=== PATIENT | male | born 1955 | race Hispanic/Latino ===

== ENCOUNTER → 2016-09-06 | Day surgery (SDC) | payer MEDICARE, MEDICAID ==
[~2016-09-06] VITALS: Ht 170.2 cm; Wt 80.3 kg
[~2016-09-06] MED LIST: ACETAMINOPHEN 325 MG TAB PO PRN; ACETYLCHOLINE OPHTH SOLN 1% 2ML As Ordered ONE; ACETYLCHOLINE OPHTH SOLN 1% 2ML XX ONE; ASPI1TAB PO; AcetaZOLAMIDE 500 MG ER CAP PO ONE; BALANCED SALT IRRIGATION SOL 500ML GLASS BOTTLE (FOR OR EYE COMPOUND) IR ONE; BSS with VANC/TOB/EPI for EYE CASES IR ONE; CEFUROXIME 1MG/0.1ML INTRACAMERAL INJ As Ordered ONE; CEFUROXIME 1MG/0.1ML INTRACAMERAL INJ ICAM ONE; CYCLOPENTOLATE 2% OPHTH SOLN As Ordered ONE; CYCLOPENTOLATE 2% OPHTH SOLN XX ONE; HEALON DUET (HEALON 10MG/ML 0.55ML & HEALON ENDOCOAT 30MG/ML 0.85ML) As Ordered ONE; HEALON DUET (HEALON 10MG/ML 0.55ML & HEALON ENDOCOAT 30MG/ML 0.85ML) XX ONE; KETOROLAC 0.5% OPHTH SOLN OS ONE; LIDOCAINE 1% SDV 5 ML VIAL As Ordered ONE; LIDOCAINE 1% SDV 5 ML VIAL XX ONE; LIDOCAINE 4% INJ 5 ML AMP OU ONE; METF1000 PO; MIDAZOLAM INJ 2 MG/2 ML VIAL (J2250) As Ordered ONE; OFLOXACIN 0.3 % (OCUFLOX) OPTH SOL 5ML As Ordered ONE; OFLOXACIN 0.3 % (OCUFLOX) OPTH SOL 5ML XX ONE; PHENYLEPHRINE 2.5% OPHTH SOL 2ML As Ordered ONE; PHENYLEPHRINE 2.5% OPHTH SOL 2ML XX ONE; POVIDONE-IODINE 5% OPHTH PREP SOL 30ML As Ordered ONE; PROPARACAINE 0.5% OPHTH SOL 15ML OS PRN; SIMV20TA2 PO; TRIMETHOBENZAMIDE 300 MG CAP PO PRN; TROPICAMIDE 1% OPHTH SOLN 2 ML As Ordered ONE; TROPICAMIDE 1% OPHTH SOLN 2 ML XX ONE; fentaNYL 100 MCG/2 ML INJECTION (J3010) As Ordered ONE
[2016-09-06 10:55] VITALS: BP 139/88
--- NOTE | 2016-09-06 13:55 | RO ---
DATE OF PROCEDURE: 09/06/2016 PREPROCEDURE DIAGNOSES: Age-related nuclear cataract and astigmatism, left eye. POSTPROCEDURE DIAGNOSES: Age-related nuclear cataract and astigmatism, left eye. PROCEDURE PERFORMED: Phacoemulsification and posterior chamber intraocular lens implantation, left eye. Lens used is a ZCT 525 25.0 diopters, 5.25 diopter cylinder placed at 81 degrees. SURGEON: Magnolia Anderson MD MOLDING ROOM SUPERVISOR: ANESTHESIA: Topical with sedation. DESCRIPTION OF PROCEDURE: The patient was prepped and draped in the usual fashion. A lid speculum was placed between the lids. The eye was fixated. A stab incision was made to the anterior chamber, and 1% nonpreserved Lidocaine was instilled. Then, viscoelastic was instilled. The eye was refixated. A 2.75 mm sapphire keratome was used to make a clear corneal temporal limbal incision. Capsulorrhexis was begun with a 30-gauge bent needle and then carried out in a circular fashion with capsulorrhexis forceps. The lens was hydrodissected, and then the phacoemulsification unit was used to make a groove in the nucleus and two meridians. The nucleus was then cracked into four quadrants. Each quadrant was removed with the phacoemulsification unit. Any remaining cortex was removed with the I and A unit. Capsular bag was refilled with viscoelastic. A posterior chamber intraocular lens was placed in the capsular bag without difficulty. Any remaining viscoelastic was removed with the I and A unit. The wound was hydrated, and Miochol and cefuroxime were instilled into the anterior chamber.
== END | disposition home or self-care (01) ==
LOC: M SDC 07:05
PROVIDERS: ATTEND Ophthalmology
DX: H25.12 Age-related nuclear cataract, left eye (principal); H52.202 Unspecified astigmatism, left eye; E11.9 Type 2 diabetes mellitus without complications; I10 Essential (primary) hypertension; Z79.82 Long term (current) use of aspirin; Z79.899 Other long term (current) drug therapy; Z87.891 Personal history of nicotine dependence
CPT/HCPCS: 66984; J2250; J3010; V2787

== ENCOUNTER 2016-09-25 14:07 | Emergency (ER) | payer MEDICARE ==
[~2016-09-25 14:07] MED LIST changes: -ACETAMINOPHEN 325 MG TAB PO PRN; -ACETYLCHOLINE OPHTH SOLN 1% 2ML As Ordered ONE; -ACETYLCHOLINE OPHTH SOLN 1% 2ML XX ONE; -AcetaZOLAMIDE 500 MG ER CAP PO ONE; -BALANCED SALT IRRIGATION SOL 500ML GLASS BOTTLE (FOR OR EYE COMPOUND) IR ONE; -BSS with VANC/TOB/EPI for EYE CASES IR ONE; -CEFUROXIME 1MG/0.1ML INTRACAMERAL INJ As Ordered ONE; -CEFUROXIME 1MG/0.1ML INTRACAMERAL INJ ICAM ONE; -CYCLOPENTOLATE 2% OPHTH SOLN As Ordered ONE; -CYCLOPENTOLATE 2% OPHTH SOLN XX ONE; -HEALON DUET (HEALON 10MG/ML 0.55ML & HEALON ENDOCOAT 30MG/ML 0.85ML) As Ordered ONE; -HEALON DUET (HEALON 10MG/ML 0.55ML & HEALON ENDOCOAT 30MG/ML 0.85ML) XX ONE; -KETOROLAC 0.5% OPHTH SOLN OS ONE; -LIDOCAINE 1% SDV 5 ML VIAL As Ordered ONE; -LIDOCAINE 1% SDV 5 ML VIAL XX ONE; -LIDOCAINE 4% INJ 5 ML AMP OU ONE; -MIDAZOLAM INJ 2 MG/2 ML VIAL (J2250) As Ordered ONE; -OFLOXACIN 0.3 % (OCUFLOX) OPTH SOL 5ML As Ordered ONE; -OFLOXACIN 0.3 % (OCUFLOX) OPTH SOL 5ML XX ONE; -PHENYLEPHRINE 2.5% OPHTH SOL 2ML As Ordered ONE; -PHENYLEPHRINE 2.5% OPHTH SOL 2ML XX ONE; -POVIDONE-IODINE 5% OPHTH PREP SOL 30ML As Ordered ONE; -PROPARACAINE 0.5% OPHTH SOL 15ML OS PRN; -TRIMETHOBENZAMIDE 300 MG CAP PO PRN; -TROPICAMIDE 1% OPHTH SOLN 2 ML As Ordered ONE; -TROPICAMIDE 1% OPHTH SOLN 2 ML XX ONE; -fentaNYL 100 MCG/2 ML INJECTION (J3010) As Ordered ONE
--- NOTE | 2016-09-25 15:09 | EDDOCDS ---
Physician Documentation [facility] Name: Martin Hein Age: 61 yrs Sex: Male : 1955 Arrival Date: 09/25/2016 Time: 14:07 Bed Triage 2 Private MD: Geovani Bolivar Disposition: 09/25/16 15:04 Discharged to Home/Self Care. Impression: Urticaria, unspecified. - Condition is Stable. - Discharge Instructions: Hives. - Prescriptions for Prednisone 20 mg Oral Tablet - take 1 tablet by ORAL route once daily for 5 days; 5 tablet. Betamethasone Dipropionate 0.05 % Topical Cream - apply 1 application by TOPICAL route once daily apply to spots on arm; 1 tube. - Medication Reconciliation form. - Follow up: Geovani Bolivar; When: Call to arrange an appointment; Reason: Wound/Symptom Recheck, Recheck today's complaints, Worsening of conditions, Continuance of care. Follow up: Pily Sanchez RNNP; When: Call to arrange an appointment; Reason: Wound/Symptom Recheck, Recheck today's complaints, Worsening of conditions, Continuance of care. - Problem is an ongoing problem. - Symptoms are unchanged. Historical: - Allergies: Morphine (Rash); - Home Meds: 1. metformin 850 mg Oral tab 1 tab 2 times per day 2. simvastatin 20 mg Oral tab once daily - PMHx: Diabetes - NIDDM: controlled; Hypercholesterolemia; - PSHx: upper back surgery; - Social history: Smoking status: Patient states former smoker of tobacco. No barriers to communication noted, The patient speaks fluent Turkish, Speaks appropriately for age. - Family history: Not pertinent. - : The pt / caregiver states he / she is not on anticoagulants. Home medication list is obtained from pill bottles. - Exposure Risk Screening:: None identified. Vital Signs: 09/25 14:08 BP 158 / 96; Pulse 89; Resp 18; Temp 97.4(T); Pulse Ox 96% on R/A; Weight 75.75 kg / dem1 167 lbs; Height 5 ft. 7 in. (170.18 cm); Pain 10/10; 14:08 Body Mass Index 26.16 (75.75 kg, 170.18 cm) dem1 Signatures: Mel Chase RN RN js13 Dayanna Buchanan RN RN ead Filippo Osuna, PA-C PA-C cc10 MTDD
--- NOTE | 2016-09-25 15:09 | EDDOCDS ---
Nurse's Notes [facility] Name: Martin Hein Age: 61 yrs Sex: Male : 1955 Arrival Date: 09/25/2016 Time: 14:07 Bed Triage 2 Private MD: Geovani Bolivar Diagnosis: Urticaria, unspecified Presentation: 09/25 14:09 Presenting complaint: Patient states: pt c/o red rash to right arm, onset last night. ead Adult Sepsis Screening: The patient does not have new or worsening altered mentation. Patient's respiratory rate is less than 22. Systolic blood pressure is greater than 100. Patient has a qSOFA score of 0- Negative Sepsis Screen. Suicide/Homicide risk assessment- the patient denies having any suicidal and/or homicidal ideations and does not present with any other emotional, behavioral or mental health complaints. Status: Patient is not a director of special services or dependent. Transition of care: patient was not received from another setting of care. 14:09 Acuity: CHAGO Level 4 ead 14:09 Method Of Arrival: Walkin/Carried/Asstd ead Triage Assessment: 14:11 General: Appears in no apparent distress, comfortable, well nourished, well groomed, ead Behavior is appropriate for age, cooperative. Pain: Denies pain. HIV screening NA for this visit Offered previously. Respiratory: Airway is patent Respiratory effort is even, unlabored. Derm: red, circular rash to right forearm. Historical: - Allergies: Morphine (Rash); - Home Meds: 1. metformin 850 mg Oral tab 1 tab 2 times per day 2. simvastatin 20 mg Oral tab once daily - PMHx: Diabetes - NIDDM: controlled; Hypercholesterolemia; - PSHx: upper back surgery; - Social history: Smoking status: Patient states former smoker of tobacco. No barriers to communication noted, The patient speaks fluent Spanish, Speaks appropriately for age. - Family history: Not pertinent. - : The pt / caregiver states he / she is not on anticoagulants. Home medication list is obtained from pill bottles. - Exposure Risk Screening:: None identified. Screenin:34 Screening information is obtained from the patient. Fall risk: No risks identified. js13 Assistance ADL's: requires no assistance with activities of daily living. Abuse/DV Screen: The patient / caregiver reports he/she is: not in a situation that causes fear, pain or injury. Nutritional screening: No deficits noted. Advance Directives: There is no active DNR order. home support is adequate. Vital Signs: 14:08 BP 158 / 96; Pulse 89; Resp 18; Temp 97.4(T); Pulse Ox 96% on R/A; Weight 75.75 kg; dem1 Height 5 ft. 7 in. (170.18 cm); Pain 10/10; 14:08 Body Mass Index 26.16 (75.75 kg, 170.18 cm) [facility] Vitals: 14:08 Log In Time: September 25, 2016 at 14:05. [facility] ED Course: 14:08 Patient visited by Gato Loera. dem1 14:08 Geovani Bolivar is Private Physician. dem1 14:08 Patient moved to Waiting dem1 14:09 Patient moved to Pre RCE dem1 14:10 Triage Initiated ead 14:28 Patient moved to Triage 2 ar3 14:34 The patient / caregiver is instructed regarding the plan of care and ED course. js13 14:34 No IV's were initiated during this patient's visit. No procedures done that require js13 assistance. 14:55 Filippo Osuna PA-C is [facility]. cc10 14:55 Deepa Camara MD is Attending Physician. cc10 14:56 Patient visited by Filippo Osuna PA-C. cc10 14:56 Patient visited by Filippo Osuna PA-C. cc10 15:03 Geovani Bolivar is Referral Physician. cc10 15:03 Pily Sanchez RNNP is Referral Physician. cc10 Order Results: There are currently no results for this order. Outcome: 15:04 Discharge ordered by Provider. cc10 15:08 Discharge Assessment: Patient awake, alert and oriented x 3. No cognitive and/or js13 functional deficits noted. Patient verbalized understanding of disposition instructions. patient administered narcotics - no. The following High Risk Discharge criteria are identified: None. Discharged to home ambulatory. Condition: stable. Discharge instructions given to patient, Instructed on discharge instructions, follow up and referral plans. medication usage, Demonstrated understanding of instructions, medications, Pt was receptive of discharge instructions/ teaching. Prescriptions given X 2. No special radiology studies were completed. Property :Personal belongings accompany Pt. 15:08 Patient left the ED. js13 Signatures: Mallory Holman, LAUNDRY EQUIPMENT OPERATOR LAUNDRY EQUIPMENT OPERATOR ar3 Gato Loera dem1 Mel Chase,RN RN js13 Dayanna BuchananRN RN eaFilippo Zee, PA-C PA-C cc10 MTDD
--- NOTE | 2016-09-27 16:09 | EDDOCDS ---
Physician Documentation [facility] Name: Martin Hein Age: 61 yrs Sex: Male : 1955 Arrival Date: 09/25/2016 Time: 14:07 Bed Triage 2 Private MD: Geovani Bolivar Disposition: 09/25/16 15:04 Discharged to Home/Self Care. Impression: Urticaria, unspecified. - Condition is Stable. - Discharge Instructions: Hives. - Prescriptions for Prednisone 20 mg Oral Tablet - take 1 tablet by ORAL route once daily for 5 days; 5 tablet. Betamethasone Dipropionate 0.05 % Topical Cream - apply 1 application by TOPICAL route once daily apply to spots on arm; 1 tube. - Medication Reconciliation form. - Follow up: Geovani Bolivar; When: Call to arrange an appointment; Reason: Wound/Symptom Recheck, Recheck today's complaints, Worsening of conditions, Continuance of care. Follow up: Pily Sanchez RNNP; When: Call to arrange an appointment; Reason: Wound/Symptom Recheck, Recheck today's complaints, Worsening of conditions, Continuance of care. - Problem is an ongoing problem. - Symptoms are unchanged. Historical: - Allergies: Morphine (Rash); - Home Meds: 1. metformin 850 mg Oral tab 1 tab 2 times per day 2. simvastatin 20 mg Oral tab once daily - PMHx: Diabetes - NIDDM: controlled; Hypercholesterolemia; - PSHx: upper back surgery; - Social history: Smoking status: Patient states former smoker of tobacco. No barriers to communication noted, The patient speaks fluent Latvian, Speaks appropriately for age. - Family history: Not pertinent. - : The pt / caregiver states he / she is not on anticoagulants. Home medication list is obtained from pill bottles. - Exposure Risk Screening:: None identified. Vital Signs: 09/25 14:08 BP 158 / 96; Pulse 89; Resp 18; Temp 97.4(T); Pulse Ox 96% on R/A; Weight 75.75 kg / dem1 167 lbs; Height 5 ft. 7 in. (170.18 cm); Pain 10/10; 14:08 Body Mass Index 26.16 (75.75 kg, 170.18 cm) dem1 MDM: 09/26 12:45 T-Sheet-- Draft Copy was scanned into [email or web address] and attached to record. gb Signatures: Sarah Weber, Reg Reg Mel Shafer,RN RN js13 Dayanna BuchananRN RN Filippo Benedict, KAILYN PAFabby cc10 The chart was reviewed and I authenticate all verbal orders and agree with the evaluation and treatment provided.Attachments: 12:45 T-Sheet-- Draft Copy gb Chart Complete MTDD
--- NOTE | 2016-09-27 16:09 | EDDOCDS ---
Physician Documentation [facility] Name: Martin Hein Age: 61 yrs Sex: Male : 1955 Arrival Date: 09/25/2016 Time: 14:07 Bed Triage 2 Private MD: Geovani Bolivar Disposition: 09/25/16 15:04 Discharged to Home/Self Care. Impression: Urticaria, unspecified. - Condition is Stable. - Discharge Instructions: Hives. - Prescriptions for Prednisone 20 mg Oral Tablet - take 1 tablet by ORAL route once daily for 5 days; 5 tablet. Betamethasone Dipropionate 0.05 % Topical Cream - apply 1 application by TOPICAL route once daily apply to spots on arm; 1 tube. - Medication Reconciliation form. - Follow up: Geovani Bolivar; When: Call to arrange an appointment; Reason: Wound/Symptom Recheck, Recheck today's complaints, Worsening of conditions, Continuance of care. Follow up: Pily Sanchez RNNP; When: Call to arrange an appointment; Reason: Wound/Symptom Recheck, Recheck today's complaints, Worsening of conditions, Continuance of care. - Problem is an ongoing problem. - Symptoms are unchanged. Historical: - Allergies: Morphine (Rash); - Home Meds: 1. metformin 850 mg Oral tab 1 tab 2 times per day 2. simvastatin 20 mg Oral tab once daily - PMHx: Diabetes - NIDDM: controlled; Hypercholesterolemia; - PSHx: upper back surgery; - Social history: Smoking status: Patient states former smoker of tobacco. No barriers to communication noted, The patient speaks fluent Kiswahili, Speaks appropriately for age. - Family history: Not pertinent. - : The pt / caregiver states he / she is not on anticoagulants. Home medication list is obtained from pill bottles. - Exposure Risk Screening:: None identified. Vital Signs: 09/25 14:08 BP 158 / 96; Pulse 89; Resp 18; Temp 97.4(T); Pulse Ox 96% on R/A; Weight 75.75 kg / dem1 167 lbs; Height 5 ft. 7 in. (170.18 cm); Pain 10/10; 14:08 Body Mass Index 26.16 (75.75 kg, 170.18 cm) dem1 MDM: 09/26 12:45 T-Sheet-- Draft Copy was scanned into [employer] and attached to record. gb Signatures: Sarah Weber, Reg Reg Mel hSafer,RN RN js13 Dayanna BuchananRN RN Filippo Benedict, KAILYN PAFabby cc10 The chart was reviewed and I authenticate all verbal orders and agree with the evaluation and treatment provided.Attachments: 12:45 T-Sheet-- Draft Copy gb Chart Complete MTDD
--- NOTE | 2016-09-27 16:10 | EDDOCDS ---
Nurse's Notes [facility] Name: Martin Hein Age: 61 yrs Sex: Male : 1955 Arrival Date: 09/25/2016 Time: 14:07 Bed Triage 2 Private MD: Geovani Bolivar Diagnosis: Urticaria, unspecified Presentation: 09/25 14:09 Presenting complaint: Patient states: pt c/o red rash to right arm, onset last night. ead Adult Sepsis Screening: The patient does not have new or worsening altered mentation. Patient's respiratory rate is less than 22. Systolic blood pressure is greater than 100. Patient has a qSOFA score of 0- Negative Sepsis Screen. Suicide/Homicide risk assessment- the patient denies having any suicidal and/or homicidal ideations and does not present with any other emotional, behavioral or mental health complaints. Status: Patient is not a surgical services asst or dependent. Transition of care: patient was not received from another setting of care. 14:09 Acuity: CHAGO Level 4 ead 14:09 Method Of Arrival: Walkin/Carried/Asstd ead Triage Assessment: 14:11 General: Appears in no apparent distress, comfortable, well nourished, well groomed, ead Behavior is appropriate for age, cooperative. Pain: Denies pain. HIV screening NA for this visit Offered previously. Respiratory: Airway is patent Respiratory effort is even, unlabored. Derm: red, circular rash to right forearm. Historical: - Allergies: Morphine (Rash); - Home Meds: 1. metformin 850 mg Oral tab 1 tab 2 times per day 2. simvastatin 20 mg Oral tab once daily - PMHx: Diabetes - NIDDM: controlled; Hypercholesterolemia; - PSHx: upper back surgery; - Social history: Smoking status: Patient states former smoker of tobacco. No barriers to communication noted, The patient speaks fluent Spanish, Speaks appropriately for age. - Family history: Not pertinent. - : The pt / caregiver states he / she is not on anticoagulants. Home medication list is obtained from pill bottles. - Exposure Risk Screening:: None identified. Screenin:34 Screening information is obtained from the patient. Fall risk: No risks identified. js13 Assistance ADL's: requires no assistance with activities of daily living. Abuse/DV Screen: The patient / caregiver reports he/she is: not in a situation that causes fear, pain or injury. Nutritional screening: No deficits noted. Advance Directives: There is no active DNR order. home support is adequate. Vital Signs: 14:08 BP 158 / 96; Pulse 89; Resp 18; Temp 97.4(T); Pulse Ox 96% on R/A; Weight 75.75 kg; dem1 Height 5 ft. 7 in. (170.18 cm); Pain 10/10; 14:08 Body Mass Index 26.16 (75.75 kg, 170.18 cm) [facility] Vitals: 14:08 Log In Time: September 25, 2016 at 14:05. [facility] ED Course: 14:08 Patient visited by Gato Loera. dem1 14:08 Geovani Bolivar is Private Physician. dem1 14:08 Patient moved to Waiting dem1 14:09 Patient moved to Pre RCE dem1 14:10 Triage Initiated ead 14:28 Patient moved to Triage 2 ar3 14:34 The patient / caregiver is instructed regarding the plan of care and ED course. js13 14:34 No IV's were initiated during this patient's visit. No procedures done that require js13 assistance. 14:55 Filippo Osuna PA-C [facility]. cc10 14:55 Deepa Camara MD is Attending Physician. cc10 14:56 Patient visited by Filippo Osuna PA-C. cc10 14:56 Patient visited by Filippo Osuna PA-C. cc10 15:03 Geovani Bolivar is Referral Physician. cc10 15:03 Pily Sanchez RNNP is Referral Physician. [facility] 09/26 12:45 T-Sheet-- Draft Copy was scanned into [employer] and attached to record. gb Order Results: There are currently no results for this order. Outcome: 09/25 15:04 Discharge ordered by Provider. cc10 15:08 Discharge Assessment: Patient awake, alert and oriented x 3. No cognitive and/or js13 functional deficits noted. Patient verbalized understanding of disposition instructions. patient administered narcotics - no. The following High Risk Discharge criteria are identified: None. Discharged to home ambulatory. Condition: stable. Discharge instructions given to patient, Instructed on discharge instructions, follow up and referral plans. medication usage, Demonstrated understanding of instructions, medications, Pt was receptive of discharge instructions/ teaching. Prescriptions given X 2. No special radiology studies were completed. Property :Personal belongings accompany Pt. 15:08 Patient left the ED. js13 Signatures: Sarah Weber, Dorian Reg gb Mallory Holman, LOG HOOKER LOG HOOKER ar3 Evaristo, Gato dem1 Mel Chase,RN RN js13 Dayanna BuchananRN RN Filippo Benedict, PA-C PA-C cc10 Chart Complete MTDD
== END 2016-09-25 15:08 | disposition home or self-care (01) ==
LOC: M ED 14:07
DX: L50.0 Allergic urticaria (principal); E11.9 Type 2 diabetes mellitus without complications; E78.00 Pure hypercholesterolemia, unspecified; Z79.899 Other long term (current) drug therapy; Z79.84 Long term (current) use of oral hypoglycemic drugs; Z88.5 Allergy status to narcotic agent; Z87.891 Personal history of nicotine dependence

== ENCOUNTER → 2016-10-16 | Outpatient (REF) | payer MEDICARE, MEDICAID ==
[2016-10-16 11:57] LABS: MEAN CORPUSCULAR HEMOGLOBIN 32.9 pg (27.0-33.0); MEAN CORPUSCULAR HGB CONC 35.6 g/dl (32.0-36.5); MEAN CORPUSCULAR VOLUME 92.5 fl (80.0-96.0); RED CELL DISTRIBUTION WIDTH 13.2 % (11.5-14.5); WHITE BLOOD COUNT 6.5 K/mm3 (4.0-10.0)
[2016-10-16 12:26] LABS: ALBUMIN 4.2 GM/DL (3.2-5.2); ALKALINE PHOSPHATASE 75 U/L (45-117); ALT/SGPT 38 U/L (12-78); ANION GAP 9 MEQ/L (8-16); AST/SGOT 18 U/L (15-37); BILIRUBIN,TOTAL 0.3 MG/DL (0.2-1.0); BLOOD UREA NITROGEN 12 MG/DL (7-18); CALCIUM LEVEL 9.2 MG/DL (8.8-10.2); CARBON DIOXIDE LEVEL 29 MEQ/L (21-32); CHLORIDE LEVEL 104 MEQ/L (98-107); CHOLESTEROL LEVEL 152 MG/DL (<200); CREATININE FOR GFR 1.03 MG/DL (0.70-1.30); GLOMERULAR FILTRATION RATE > 60.0 (>49); GLUCOSE, FASTING 168 MG/DL (80-110); SODIUM LEVEL 142 MEQ/L (136-145); TOTAL PROTEIN 7.7 GM/DL (6.4-8.2); TRIGLYCERIDES LEVEL 226 MG/DL (<150)
[2016-10-16 12:29] LABS: POTASSIUM SERUM 5.2 MEQ/L (3.5-5.1)
== END ==
LOC: M SFHCPLAZ 10:04
PROVIDERS: ATTEND Nurse Practitioner Adult Health
DX: Z00.00 Encounter for general adult medical examination without abnormal findings (principal); E78.00 Pure hypercholesterolemia, unspecified; L30.9 Dermatitis, unspecified; E11.69 Type 2 diabetes mellitus with other specified complication; E55.9 Vitamin D deficiency, unspecified; F41.8 Other specified anxiety disorders; H91.92 Unspecified hearing loss, left ear; Z87.442 Personal history of urinary calculi
CPT/HCPCS: 36415; 80053; 80061; 82043; 83036; 84443; 85027; 93005; G0463

== ENCOUNTER → 2016-12-06 | Day surgery (SDC) | payer MEDICARE ==
[~2016-12-06] VITALS: Ht 167.6 cm; Wt 80.7 kg
[~2016-12-06] MED LIST changes: +D5W/0.2% SODIUM CHLORIDE 250 ML IV SCH; +LIDOCAINE 2% W/EPIN INJ 20ML **PRES FREE As Ordered ONE; +LIDOCAINE 4% INJ 5 ML AMP OU ONE; +MIDAZOLAM INJ 2 MG/2 ML VIAL (J2250) As Ordered ONE; +OFLOXACIN 0.3 % (OCUFLOX) OPTH SOL 5ML OS ONE; +POVIDONE-IODINE 5% OPHTH PREP SOL 30ML As Ordered ONE; +TOBRADEX OPHTH OINT 3.5 GM As Ordered ONE; +fentaNYL 100 MCG/2 ML INJECTION (J3010) As Ordered ONE
[2016-12-06 11:00] VITALS: BP 137/84
--- NOTE | 2016-12-06 11:09 | RO ---
DATE OF PROCEDURE: 12/06/2016 PREPROCEDURE DIAGNOSIS: Pterygium nasally, left eye. POSTPROCEDURE DIAGNOSIS: Pterygium nasally, left eye. PROCEDURE PERFORMED: Excision of pterygium with amniotic membrane graft. SURGEON: Magnolia Anderson MD EMERGENCY PHYSICIAN: ANESTHESIA: Local with sedation. DESCRIPTION OF PROCEDURE: The patient was prepped and draped in the usual fashion. Lid speculum was placed between the lids. The pterygium was grasped with the forceps, and 2% lidocaine with epinephrine was injected underneath the pterygium. The pterygium was excised from the overlying sclera, and then the head of the pterygium was removed from the cornea. The cornea was scraped clean of any tissue, and any bleeding was controlled with Wet-Field cautery. An amniotic membrane graft was taken and cut to size and tucked underneath the edges of the free conjunctiva. Tisseel adhesive was used to glue the graft to the conjunctiva. TobraDex ointment was applied. After this, the lid speculum was removed and a patch was placed. Patient tolerated the procedure well and went to recovery room in stable condition.
== END | disposition home or self-care (01) ==
LOC: M SDC 06:47
PROVIDERS: ATTEND Ophthalmology
DX: H11.002 Unspecified pterygium of left eye (principal); E11.9 Type 2 diabetes mellitus without complications; E78.5 Hyperlipidemia, unspecified; Z79.82 Long term (current) use of aspirin; Z79.899 Other long term (current) drug therapy
CPT/HCPCS: 65426; 88302; C1762; J2250; J3010

== ENCOUNTER → 2017-07-31 | Outpatient (REF) | payer MEDICARE, MEDICAID ==
[~2017-07-31] MED LIST changes: -D5W/0.2% SODIUM CHLORIDE 250 ML IV SCH; -LIDOCAINE 2% W/EPIN INJ 20ML **PRES FREE As Ordered ONE; -LIDOCAINE 4% INJ 5 ML AMP OU ONE; -METF1000 PO; +METF10004 PO; -MIDAZOLAM INJ 2 MG/2 ML VIAL (J2250) As Ordered ONE; -OFLOXACIN 0.3 % (OCUFLOX) OPTH SOL 5ML OS ONE; -POVIDONE-IODINE 5% OPHTH PREP SOL 30ML As Ordered ONE; -TOBRADEX OPHTH OINT 3.5 GM As Ordered ONE; -fentaNYL 100 MCG/2 ML INJECTION (J3010) As Ordered ONE
[2017-07-31 12:58] LABS: ALBUMIN 4.3 GM/DL (3.2-5.2); ALBUMIN/GLOBULIN RATIO 1.26 (1.00-1.93); ALKALINE PHOSPHATASE 66 U/L (45-117); ALT/SGPT 41 U/L (12-78); ANION GAP 9 MEQ/L (8-16); AST/SGOT 19 U/L (7-37); BILIRUBIN,TOTAL 0.5 MG/DL (0.2-1.0); BLOOD UREA NITROGEN 13 MG/DL (7-18); CARBON DIOXIDE LEVEL 28 MEQ/L (21-32); CHLORIDE LEVEL 102 MEQ/L (98-107); CHOLESTEROL LEVEL 122 MG/DL (<200); CREATININE FOR GFR 1.03 MG/DL (0.70-1.30); GLOMERULAR FILTRATION RATE > 60.0 (>49); GLUCOSE, FASTING 231 MG/DL (80-110); POTASSIUM SERUM 4.9 MEQ/L (3.5-5.1); SODIUM LEVEL 139 MEQ/L (136-145); TOTAL PROTEIN 7.7 GM/DL (6.4-8.2); TRIGLYCERIDES LEVEL 101 MG/DL (<150)
== END ==
LOC: M SFHCPLAZ 08:18
PROVIDERS: ATTEND Nurse Practitioner Adult Health
DX: E55.9 Vitamin D deficiency, unspecified (principal); E11.69 Type 2 diabetes mellitus with other specified complication; E78.2 Mixed hyperlipidemia

== ENCOUNTER → 2017-11-19 | Outpatient (CLI) | payer MEDICARE, MEDICAID ==
[2017-11-19 10:42] LABS: ESTIMATED AVERAGE GLUCOSE 146 MG/DL (60-110); HEMOGLOBIN A1c 6.7 %
[2017-11-19 10:52] LABS: ALBUMIN 4.2 GM/DL (3.2-5.2); ALKALINE PHOSPHATASE 64 U/L (45-117); ALT/SGPT 33 U/L (12-78); ANION GAP 2 MEQ/L (8-16); AST/SGOT 17 U/L (7-37); BILIRUBIN,TOTAL 0.6 MG/DL (0.2-1.0); BLOOD UREA NITROGEN 16 MG/DL (7-18); CALCIUM LEVEL 8.8 MG/DL (8.8-10.2); CARBON DIOXIDE LEVEL 32 MEQ/L (21-32); CHLORIDE LEVEL 108 MEQ/L (98-107); CHOLESTEROL LEVEL 122 MG/DL (<200); CHOLESTEROL RISK RATIO 2.652 (<5); CREATININE FOR GFR 1.07 MG/DL (0.70-1.30); GLOMERULAR FILTRATION RATE > 60.0 (>49); GLUCOSE, FASTING 132 MG/DL (70-100); HDL CHOLESTEROL 46 MG/DL (>40); NON-HDL-C 76 MG/DL; POTASSIUM SERUM 4.9 MEQ/L (3.5-5.1); SODIUM LEVEL 142 MEQ/L (136-145); TOTAL PROTEIN 7.7 GM/DL (6.4-8.2); TRIGLYCERIDES LEVEL 145 MG/DL (<150)
[2017-11-19 10:57] LABS: TOTAL 25(OH) VITAMIN D 44.1 NG/ML (30.0-100.0)
[2017-11-19 11:02] LABS: CREATININE, URINE 41.6 MG/DL; MALB URINE SIEMENS < 5.0 MG/L
== END ==
LOC: M LAB 09:44
DX: E11.69 Type 2 diabetes mellitus with other specified complication (principal); E78.2 Mixed hyperlipidemia; E55.9 Vitamin D deficiency, unspecified
CPT/HCPCS: 80053

== ENCOUNTER → 2017-12-08 | Outpatient (REF) | payer MEDICARE, MEDICAID ==
[2017-12-08 12:37] LABS: INFLUENZA A AMPLIFICATION NEGATIVE (NEGATIVE); INFLUENZA B AMPLIFICATION NEGATIVE (NEGATIVE)
== END ==
LOC: M LAB REF 11:53
DX: J11.1 Influenza due to unidentified influenza virus with other respiratory manifestations (principal)
CPT/HCPCS: 87502

== ENCOUNTER → 2018-01-28 | Outpatient (REF) | payer MEDICARE, MEDICAID ==
[2018-01-28 16:16] LABS: URIC ACID 4.6 MG/DL (3.5-7.2)
[2018-01-28 16:23] LABS: ESTIMATED AVERAGE GLUCOSE 148 MG/DL (60-110); HEMOGLOBIN A1c 6.8 %
== END ==
LOC: M SFHCPLAZ 13:51
DX: E11.69 Type 2 diabetes mellitus with other specified complication (principal); M79.674 Pain in right toe(s)
CPT/HCPCS: 84550

== ENCOUNTER 2018-03-06 11:38 | Emergency (ER) | payer MEDICARE, MEDICAID ==
[2018-03-06 12:22] LABS: BASO % 0.3 % (0.0-1.0); EOS # 0.1 10^3/uL (0.0-0.50); EOS % 1.4 % (0.0-3.0); HEMATOCRIT 42.5 % (42.0-52.0); HEMOGLOBIN 14.8 g/dl (13.5-17.5); IMMATURE GRANULOCYTE % 0.2 % (0-3.0); LYMPH # 1.9 10^3/uL (1.5-4.5); LYMPH % 33.3 % (24.0-44.0); MEAN CORPUSCULAR HEMOGLOBIN 31.8 pg (27.0-33.0); MEAN CORPUSCULAR HGB CONC 34.8 g/dl (32.0-36.5); MEAN CORPUSCULAR VOLUME 91.4 fl (80.0-96.0); MONO # 0.5 10^3/uL (0.0-0.8); MONO % 8.2 % (0.0-5.0); NEUTROPHILS # 3.3 10^3/uL (1.8-7.7); NEUTROPHILS % 56.6 % (36.0-66.0); PLATELET COUNT, AUTOMATED 174 10^3/uL (150-450); RED BLOOD COUNT 4.65 10^6/uL (4.30-6.10); RED CELL DISTRIBUTION WIDTH 13.1 % (11.5-14.5); WHITE BLOOD COUNT 5.8 10^3/uL (4.0-10.0)
[2018-03-06 12:39] LABS: INR 0.91; PROTHROMBIN TIME 12.4 SECONDS (12.1-14.4)
[2018-03-06] MEDS: GI COCKTAIL 50ML BTL(HYOSCYAMINE/MAALOX/LIDOCAINE VISCOUS)(1:3:1) PO (12:42)
[2018-03-06] MEDS: ASPIRIN 81 MG CHEW TABLET PO (12:42)
[2018-03-06 12:43] LABS: ANION GAP 7 MEQ/L (8-16); BLOOD UREA NITROGEN 20 MG/DL (7-18); CARBON DIOXIDE LEVEL 28 MEQ/L (21-32); CHLORIDE LEVEL 107 MEQ/L (98-107); CPK CREATINE PHOSPHOKINASE 66 U/L (39-308); CREATININE FOR GFR 0.97 MG/DL (0.70-1.30); GLOMERULAR FILTRATION RATE > 60.0 (>49); GLUCOSE, FASTING 102 MG/DL (70-100); POTASSIUM SERUM 4.3 MEQ/L (3.5-5.1); SODIUM LEVEL 142 MEQ/L (136-145); TROPONIN I < 0.02 NG/ML (< 0.10)
[2018-03-06 12:44] LABS: CK-MB VALUE MASS 1.1 NG/ML (<3.6); MB/CK RELATIVE INDEX 1.66 (< OR =4)
[2018-03-06 16:44] LABS: CK-MB VALUE MASS < 1.0 NG/ML (<3.6); CPK CREATINE PHOSPHOKINASE 47 U/L (39-308); MB/CK RELATIVE INDEX 2.12 (< OR =4); TROPONIN I < 0.02 NG/ML (< 0.10)
== END 2018-03-06 17:25 | disposition home or self-care (01) ==
LOC: M ED 11:38
DX: M54.9 Dorsalgia, unspecified (principal); G89.29 Other chronic pain; R07.89 Other chest pain; E11.9 Type 2 diabetes mellitus without complications; K21.9 Gastro-esophageal reflux disease without esophagitis; E78.5 Hyperlipidemia, unspecified; Z87.891 Personal history of nicotine dependence; Z79.899 Other long term (current) drug therapy; Z79.82 Long term (current) use of aspirin; Z79.84 Long term (current) use of oral hypoglycemic drugs
CPT/HCPCS: 71045

== ENCOUNTER → 2018-03-27 | Outpatient (CLI) | payer MEDICARE, MEDICAID | LOC: M RAD 07:44 | DX: M51.26 Other intervertebral disc displacement, lumbar region (principal) | CPT/HCPCS: 72148 ==

== ENCOUNTER → 2018-04-24 | Outpatient (CLI) | payer MEDICARE, MEDICAID ==
[2018-04-24 09:14] LABS: ANION GAP 7 MEQ/L (8-16); BLOOD UREA NITROGEN 12 MG/DL (7-18); CALCIUM LEVEL 9.4 MG/DL (8.8-10.2); CARBON DIOXIDE LEVEL 31 MEQ/L (21-32); CHLORIDE LEVEL 103 MEQ/L (98-107); CREATININE FOR GFR 1.27 MG/DL (0.70-1.30); GLOMERULAR FILTRATION RATE > 60.0 (>49); GLUCOSE, FASTING 210 MG/DL (70-100); POTASSIUM SERUM 4.6 MEQ/L (3.5-5.1); SODIUM LEVEL 141 MEQ/L (136-145)
== END ==
LOC: M LAB 08:13
DX: Z01.812 Encounter for preprocedural laboratory examination (principal)
CPT/HCPCS: 93005

== ENCOUNTER → 2018-06-22 | Outpatient (CLI) | payer MEDICARE, MEDICAID ==
[2018-06-22 10:02] LABS: BASO % 0.6 % (0.0-1.0); EOS # 0.1 10^3/uL (0.0-0.50); EOS % 1.5 % (0.0-3.0); HEMATOCRIT 40.7 % (42.0-52.0); HEMOGLOBIN 14.2 g/dl (13.5-17.5); IMMATURE GRANULOCYTE % 0.4 % (0-3.0); LYMPH # 1.8 10^3/uL (1.5-4.5); LYMPH % 33.1 % (24.0-44.0); MEAN CORPUSCULAR HEMOGLOBIN 32.1 pg (27.0-33.0); MEAN CORPUSCULAR HGB CONC 34.9 g/dl (32.0-36.5); MEAN CORPUSCULAR VOLUME 92.1 fl (80.0-96.0); MONO # 0.4 10^3/uL (0.0-0.8); MONO % 7.5 % (0.0-5.0); NEUTROPHILS # 3.1 10^3/uL (1.8-7.7); NEUTROPHILS % 56.9 % (36.0-66.0); PLATELET COUNT, AUTOMATED 149 10^3/uL (150-450); RED BLOOD COUNT 4.42 10^6/uL (4.30-6.10); RED CELL DISTRIBUTION WIDTH 13.6 % (11.5-14.5); WHITE BLOOD COUNT 5.4 10^3/uL (4.0-10.0)
[2018-06-22 10:19] LABS: ESTIMATED AVERAGE GLUCOSE 151 MG/DL (60-110); HEMOGLOBIN A1c 6.9 %
[2018-06-22 10:28] LABS: CREATININE, URINE 21.3 MG/DL; MALB URINE SIEMENS < 5.0 MG/L
[2018-06-22 10:29] LABS: MAU/CREAT RATIO 23.5 MCG/MG (0.0-30.0)
[2018-06-22 10:30] LABS: ALBUMIN 4.2 GM/DL (3.2-5.2); ALBUMIN/GLOBULIN RATIO 1.35 (1.00-1.93); ALKALINE PHOSPHATASE 56 U/L (45-117); ALT/SGPT 36 U/L (12-78); ANION GAP 5 MEQ/L (8-16); AST/SGOT 20 U/L (7-37); BILIRUBIN,TOTAL 0.5 MG/DL (0.2-1.0); BLOOD UREA NITROGEN 11 MG/DL (7-18); CARBON DIOXIDE LEVEL 31 MEQ/L (21-32); CHLORIDE LEVEL 104 MEQ/L (98-107); CHOLESTEROL LEVEL 110 MG/DL (<200); CHOLESTEROL RISK RATIO 2.682 (<5); CPK CREATINE PHOSPHOKINASE 82 U/L (39-308); CREATININE FOR GFR 0.93 MG/DL (0.70-1.30); GLOMERULAR FILTRATION RATE > 60.0 (>49); GLUCOSE, FASTING 115 MG/DL (70-100); HDL CHOLESTEROL 41 MG/DL (>40); LDL CHOLESTEROL 43 MG/DL (<100); NON-HDL-C 69 MG/DL; POTASSIUM SERUM 4.6 MEQ/L (3.5-5.1); SODIUM LEVEL 140 MEQ/L (136-145); TOTAL PROTEIN 7.3 GM/DL (6.4-8.2); TRIGLYCERIDES LEVEL 130 MG/DL (<150)
[2018-06-24 10:13] LABS: PTH INTACT 20.9 PG/ML (18.5-88.0); TOTAL 25(OH) VITAMIN D 44.9 NG/ML (30.0-100.0)
== END ==
LOC: M LAB 08:55
DX: R03.0 Elevated blood-pressure reading, without diagnosis of hypertension (principal); Z79.899 Other long term (current) drug therapy
CPT/HCPCS: 82550

== ENCOUNTER → 2018-07-23 | Outpatient (CLI) | payer MEDICARE, MEDICAID | LOC: M RAD 11:45 | DX: G45.9 Transient cerebral ischemic attack, unspecified (principal) | CPT/HCPCS: 93880 ==

== ENCOUNTER → 2018-10-01 | Outpatient (REF) | payer MEDICARE, MEDICAID ==
[~2018-10-01] MED LIST changes: +CALTTAB6 PO; +FISH120016 PO; +FLUT1INH INH; +GABA-843 PO; +GLIP5TAB20 PO; +INVO100T PO; +LISI10TA4 PO; +METF500T13 PO; +MOBI4TAB PO; +MULT1TAB10 PO; +NEUR300C PO; +TIZA2CAP PO
[2018-10-01 16:39] LABS: BASO % 0.5 % (0.0-1.0); EOS # 0.1 10^3/uL (0.0-0.50); EOS % 1.3 % (0.0-3.0); HEMATOCRIT 42.3 % (42.0-52.0); HEMOGLOBIN 14.2 g/dl (13.5-17.5); LYMPH # 1.4 10^3/uL (1.5-4.5); LYMPH % 35.2 % (24.0-44.0); MEAN CORPUSCULAR HEMOGLOBIN 31.9 pg (27.0-33.0); MEAN CORPUSCULAR HGB CONC 33.6 g/dl (32.0-36.5); MEAN CORPUSCULAR VOLUME 95.1 fl (80.0-96.0); MONO # 0.3 10^3/uL (0.0-0.8); NEUTROPHILS # 2.2 10^3/uL (1.8-7.7); NEUTROPHILS % 55.7 % (36.0-66.0); PLATELET COUNT, AUTOMATED 184 10^3/uL (150-450); RED BLOOD COUNT 4.45 10^6/uL (4.30-6.10); WHITE BLOOD COUNT 3.9 10^3/uL (4.0-10.0)
[2018-10-01 16:41] LABS: ALBUMIN 4.3 GM/DL (3.2-5.2); ALT/SGPT 39 U/L (12-78); BILIRUBIN,TOTAL 0.3 MG/DL (0.2-1.0); BLOOD UREA NITROGEN 16 MG/DL (7-18); CALCIUM LEVEL 9.1 MG/DL (8.8-10.2); CARBON DIOXIDE LEVEL 30 MEQ/L (21-32); CHLORIDE LEVEL 105 MEQ/L (98-107); CREATININE FOR GFR 1.01 MG/DL (0.70-1.30); GLOMERULAR FILTRATION RATE > 60.0 (>49); GLUCOSE, FASTING 114 MG/DL (70-100); POTASSIUM SERUM 4.8 MEQ/L (3.5-5.1); SODIUM LEVEL 142 MEQ/L (136-145); TOTAL PROTEIN 7.1 GM/DL (6.4-8.2)
[2018-10-01 16:47] LABS: INR 0.97
[2018-10-01 16:48] LABS: PARTIAL THROMBOPLASTIN TIME 27.3 SECONDS (25.4-37.6)
== END ==
LOC: M SFHCPLAZ 13:58
PROVIDERS: ATTEND Physician Assistant Medical
DX: Z01.818 Encounter for other preprocedural examination (principal); H00.021 Hordeolum internum right upper eyelid; R03.0 Elevated blood-pressure reading, without diagnosis of hypertension; E11.69 Type 2 diabetes mellitus with other specified complication; G45.9 Transient cerebral ischemic attack, unspecified; H91.12 Presbycusis, left ear; E78.00 Pure hypercholesterolemia, unspecified
CPT/HCPCS: 36415; 80053; 85025; 85610; 85730; G0463

== ENCOUNTER 2018-10-02 05:47 | Day surgery (SDC) | payer MEDICARE, MEDICAID ==
[~2018-10-02] VITALS: Ht 170.2 cm; Wt 81.2 kg
[2018-10-02] MEDS ORDERED: LR 1,000 ML IV SCH (06:00)
[2018-10-02] MEDS ORDERED: TOBRADEX OPHTH OINT 3.5 GM As Ordered ONE (06:39)
[2018-10-02] MEDS ORDERED: POVIDONE-IODINE 5% OPHTH PREP SOL 30ML As Ordered ONE (06:39)
[2018-10-02] MEDS ORDERED: LIDOCAINE 3.5 % 1ML OPHTH TOPICAL GEL OU ONE (07:00)
[2018-10-02] MEDS ORDERED: MIDAZOLAM INJ 2 MG/2 ML VIAL (J2250) As Ordered ONE (07:33)
[2018-10-02] MEDS ORDERED: fentaNYL 100 MCG/2 ML INJECTION (J3010) As Ordered ONE (07:33)
[2018-10-02] MEDS ORDERED: LIDOCAINE W/EPINEPHRINE 1% 20ML VIAL As Ordered ONE (07:42)
[2018-10-02] MEDS ORDERED: PROPOFOL 200 MG/20 ML VIAL As Ordered ONE (07:49)
[2018-10-02 10:00] VITALS: BP 133/75
--- NOTE | 2018-10-04 12:21 | RO ---
DATE OF PROCEDURE: 10/02/2018 PREOPERATIVE DIAGNOSIS: Chalazion right upper lid. POSTOPERATIVE DIAGNOSIS: Chalazion right upper lid. PROCEDURE PERFORMED: Irrigation and debridement of chalazion right upper lid SURGEON: Dr. Magnolia Anderson PHOTOENGRAVER: ANESTHESIA: Local with sedation. DESCRIPTION OF PROCEDURE: The patient was prepped and draped in the usual fashion. After some propofol was given, a lidocaine 1% with epinephrine was injected into the chalazion on the right upper lid. The chalazion clamp was then placed with the open surface on the palpebral surface. Later it was everted and an incision was made into the chalazion cavity using the serrated slicing curette. The material in the chalazion was removed. The chalazion clamp was removed. Pressure was applied until bleeding stopped. TobraDex ointment was applied. The patient tolerated the procedure well and went to recovery room in stable condition.
== END 2018-10-02 11:18 | disposition home or self-care (01) ==
LOC: M SDC 05:47
PROVIDERS: ATTEND Ophthalmology
DX: H00.11 Chalazion right upper eyelid (principal); E11.9 Type 2 diabetes mellitus without complications; Z79.82 Long term (current) use of aspirin; E78.5 Hyperlipidemia, unspecified; Z88.5 Allergy status to narcotic agent; Z79.51 Long term (current) use of inhaled steroids; Z79.84 Long term (current) use of oral hypoglycemic drugs; Z79.899 Other long term (current) drug therapy
CPT/HCPCS: 67800; J2250; J3010

== ENCOUNTER → 2018-10-03 | Outpatient (CLI) | payer MEDICARE, MEDICAID ==
[2018-10-03 10:32] LABS: BASO % 0.4 % (0.0-1.0); EOS # 0.1 10^3/uL (0.0-0.50); HEMATOCRIT 42.4 % (42.0-52.0); HEMOGLOBIN 14.5 g/dl (13.5-17.5); LYMPH # 1.3 10^3/uL (1.5-4.5); LYMPH % 26.1 % (24.0-44.0); MEAN CORPUSCULAR HEMOGLOBIN 32.2 pg (27.0-33.0); MEAN CORPUSCULAR HGB CONC 34.2 g/dl (32.0-36.5); MONO # 0.4 10^3/uL (0.0-0.8); NEUTROPHILS # 3.3 10^3/uL (1.8-7.7); NEUTROPHILS % 65.3 % (36.0-66.0); PLATELET COUNT, AUTOMATED 170 10^3/uL (150-450); RED BLOOD COUNT 4.51 10^6/uL (4.30-6.10)
[2018-10-03 10:57] LABS: ALBUMIN 4.3 GM/DL (3.2-5.2); ALT/SGPT 39 U/L (12-78); BILIRUBIN,TOTAL 0.4 MG/DL (0.2-1.0); BLOOD UREA NITROGEN 12 MG/DL (7-18); CALCIUM LEVEL 9.3 MG/DL (8.8-10.2); CARBON DIOXIDE LEVEL 30 MEQ/L (21-32); CHLORIDE LEVEL 105 MEQ/L (98-107); CREATININE FOR GFR 0.96 MG/DL (0.70-1.30); GLOMERULAR FILTRATION RATE > 60.0 (>49); GLUCOSE, FASTING 131 MG/DL (70-100); POTASSIUM SERUM 4.7 MEQ/L (3.5-5.1); SODIUM LEVEL 139 MEQ/L (136-145); TOTAL PROTEIN 7.3 GM/DL (6.4-8.2)
== END ==
LOC: M LAB 09:55
PROVIDERS: ATTEND Podiatrist
DX: M20.41 Other hammer toe(s) (acquired), right foot (principal)

== ENCOUNTER 2018-10-11 07:07 | Day surgery (SDC) | payer MEDICARE, MEDICAID ==
[~2018-10-11] VITALS: Ht 170.2 cm; Wt 80.3 kg
[~2018-10-11 07:07] MED LIST changes: +LR 1,000 ML IV ONE
[2018-10-11] MEDS ORDERED: PROPOFOL 200 MG/20 ML VIAL As Ordered ONE (07:44)
[2018-10-11] MEDS ORDERED: LIDOCAINE 2% INJ 100 MG/5 ML SDV (FOR ANES.) As Ordered ONE (07:45)
[2018-10-11] MEDS ORDERED: fentaNYL 100 MCG/2 ML INJECTION (J3010) As Ordered ONE (07:45)
[2018-10-11] MEDS ORDERED: ONDANSETRON 4MG/2ML VIAL (J2405) As Ordered ONE (07:45)
[2018-10-11] MEDS ORDERED: MIDAZOLAM INJ 2 MG/2 ML VIAL (J2250) As Ordered ONE (07:46)
[2018-10-11] MEDS ORDERED: dexameTHASONE 4 MG/ML 1ML VIAL (J1100) As Ordered ONE (10:07)
[2018-10-11] MEDS ORDERED: LIDOCAINE 2% MDV 20 ML VIAL As Ordered ONE (10:07)
[2018-10-11] MEDS ORDERED: BUPIVACAINE HCL 0.5% 30 ML VIAL As Ordered ONE (10:07)
[2018-10-11] MEDS ORDERED: NEOSPORIN GU IRRIG 20 ML VIAL As Ordered ONE (10:08)
[2018-10-11] MEDS ORDERED: BACITRACIN PWD 50,000 UNITS VIAL As Ordered ONE (10:08)
--- NOTE | 2018-10-11 12:04 | REP ---
RIGHT FOOT: The bone density is normal. At the fourth digit is a postoperative arthroplasty involving the proximal IP joint. There has been resection of the distal proximal phalanx and base of the middle phalanx. The remaining osseous joint structures of the foot are unremarkable. The bone density is maintained. Impression: Post operative changes as described. Electronically Signed by Emerson Fuller MD 10/11/2018 03:34 P
[2018-10-11 14:30] VITALS: BP 125/77
--- NOTE | 2018-10-12 07:49 | RO ---
DATE OF PROCEDURE: 10/11/2018 PREPROCEDURE DIAGNOSIS: Hammertoe deformity 4th toe, right foot. POSTPROCEDURE DIAGNOSIS: Hammertoe deformity 4th toe right foot. PROCEDURE: Proximal interphalangeal joint arthroplasty with external wire fixation 0.045 times one, right foot. SURGEON: Dr. Kal Mcduffie. LIDAR ANALYST: None. ANESTHESIA: Local monitored anesthesia care (MAC). ESTIMATED BLOOD LOSS: Less than 1 mL. HARDWARE UTILIZED: 0.045 Nick wire. HEMOSTASIS: Ankle pneumatic tourniquet at 225 mmHg for 16 minutes on the right ankle. DESCRIPTION OF PROCEDURE: On 10/11/2018 this 63-year-old male was taken from his hospital room to the operating room and placed on the operating room table in the supine position. Following the induction of IV sedation, local and regional anesthesia, the right lower extremity was prepped and draped in the usual aseptic manner. Sterile draping was completed and the following procedure was performed. PROXIMAL INTERPHALANGEAL JOINT ARTHROPLASTY WITH EXTERNAL WIRE FIXATION: 0.045 times one, 4th toe right foot. Attention was directed to the patient's right foot where there was noted to be a hammertoe deformity. At this time, a 2 cm incision was placed over the proximal interphalangeal joint. The incision was deepened in the subcutaneous tissue and all coursing venous tributaries were identified, underscored, clamped, cut and ligated with the electrocautery was necessary. Transverse tenotomy and capsulotomy was then performed at the proximal interphalangeal joint. The medial and lateral collateral ligaments were sharply dissected free from the head of the proximal phalanx. Utilizing a power saw, an osteotomy was performed at the anatomical neck of the proximal phalanx from dorsal to planar through and through and this was extirpated from the wound. The cartilage on the base of the base of the middle phalanx was similarly osteotomized from dorsal to planar and removed. A 0.45 Nick wire was then driven to the middle and distal phalanx. This was then retrograded into the proximal phalanx utilizing the C-arm to insure that the pin did not go into the metatarsophalangeal joint. The wire was bent, cut, and a Jurgan ball was applied on the distal end. Attention directed towards closure where the extensor tendon was coapted and maintained utilizing a $4-0 braided nylon looped suture with four-stranded modified Meng repair. Skin incision was coapted and maintained utilizing #4-0 Prolene in a simple interrupted and horizontal mattress type fashion. A dry sterile dressing was applied consisting of Adaptic 4 x 4, 4 x 4 splint, Louisa, Kerlix and Coban. The ankle pneumatic tourniquet was rapidly deflated and instantaneous capillary filling time was noted through digits 1 through 5 of the patient's right foot. Patient having apparently tolerated the procedure well was taken from the operating room (OR) to the recovery room for further monitoring by the anesthesia department. All surgical specimens during the operative procedure were sent to pathology for gross and microscopic examination. Postoperative instructed will be given on discharge.
== END 2018-10-11 15:00 | disposition home or self-care (01) ==
LOC: M SDC 07:07
PROVIDERS: ATTEND Podiatrist
DX: M20.41 Other hammer toe(s) (acquired), right foot (principal); E11.9 Type 2 diabetes mellitus without complications; E78.5 Hyperlipidemia, unspecified; Z79.82 Long term (current) use of aspirin; Z79.84 Long term (current) use of oral hypoglycemic drugs
CPT/HCPCS: 28285; 73630; 88300; J0690; J1100; J2250; J2405; J3010

== ENCOUNTER → 2018-11-28 | Outpatient (REF) | payer MEDICARE, MEDICAID ==
[~2018-11-28] MED LIST changes: -ASPI1TAB PO; +ASPI81TA26 PO; -LR 1,000 ML IV ONE
[2018-11-28 14:00] LABS: ALBUMIN 4.7 GM/DL (3.2-5.2); ALT/SGPT 35 U/L (12-78); BILIRUBIN,TOTAL 0.4 MG/DL (0.2-1.0); BLOOD UREA NITROGEN 19 MG/DL (7-18); CALCIUM LEVEL 8.9 MG/DL (8.8-10.2); CARBON DIOXIDE LEVEL 31 MEQ/L (21-32); CHLORIDE LEVEL 104 MEQ/L (98-107); CHOLESTEROL LEVEL 122 MG/DL (<200); CHOLESTEROL RISK RATIO 2.975 (<5); CPK CREATINE PHOSPHOKINASE 131 U/L (39-308); CREATININE FOR GFR 1.14 MG/DL (0.70-1.30); GLOMERULAR FILTRATION RATE > 60.0 (>49); GLUCOSE, FASTING 135 MG/DL (70-100); HDL CHOLESTEROL 41 MG/DL (>40); LDL CHOLESTEROL 45 MG/DL (<100); NON-HDL-C 81 MG/DL; SODIUM LEVEL 140 MEQ/L (136-145); TOTAL PROTEIN 7.6 GM/DL (6.4-8.2); TRIGLYCERIDES LEVEL 178 MG/DL (<150)
[2018-11-28 14:05] LABS: HEMOGLOBIN A1c 6.8 %
== END ==
LOC: M SFHCPLAZ 10:22
PROVIDERS: ATTEND Physician Assistant Medical
DX: E11.69 Type 2 diabetes mellitus with other specified complication (principal); E78.00 Pure hypercholesterolemia, unspecified; Z12.5 Encounter for screening for malignant neoplasm of prostate
CPT/HCPCS: 36415; 80053; 80061; 82550; 83036; G0103; G0463

== ENCOUNTER → 2019-04-01 | Outpatient (REF) | payer MEDICARE, MEDICAID ==
[2019-04-01 11:58] LABS: BASO % 0.3 % (0.0-1.0); EOS # 0.1 10^3/uL (0.0-0.50); EOS % 1.2 % (0.0-3.0); HEMATOCRIT 49.2 % (42.0-52.0); HEMOGLOBIN 16.7 g/dl (13.5-17.5); LYMPH # 1.8 10^3/uL (1.5-4.5); LYMPH % 31.1 % (24.0-44.0); MEAN CORPUSCULAR HEMOGLOBIN 32.9 pg (27.0-33.0); MEAN CORPUSCULAR HGB CONC 33.9 g/dl (32.0-36.5); MEAN CORPUSCULAR VOLUME 96.9 fl (80.0-96.0); MONO # 0.5 10^3/uL (0.0-0.8); NEUTROPHILS # 3.4 10^3/uL (1.8-7.7); NEUTROPHILS % 58.2 % (36.0-66.0); PLATELET COUNT, AUTOMATED 168 10^3/uL (150-450); RED BLOOD COUNT 5.08 10^6/uL (4.30-6.10); WHITE BLOOD COUNT 5.8 10^3/uL (4.0-10.0)
[2019-04-01 12:34] LABS: ALBUMIN 4.3 GM/DL (3.2-5.2); ALT/SGPT 47 U/L (12-78); BILIRUBIN,TOTAL 0.3 MG/DL (0.2-1.0); BLOOD UREA NITROGEN 19 MG/DL (7-18); CALCIUM LEVEL 9.6 MG/DL (8.8-10.2); CARBON DIOXIDE LEVEL 29 MEQ/L (21-32); CHLORIDE LEVEL 104 MEQ/L (98-107); CPK CREATINE PHOSPHOKINASE 81 U/L (39-308); CREATININE FOR GFR 1.06 MG/DL (0.70-1.30); GLOMERULAR FILTRATION RATE > 60.0 (>49); GLUCOSE, FASTING 149 MG/DL (70-100); SODIUM LEVEL 138 MEQ/L (136-145); TOTAL PROTEIN 7.8 GM/DL (6.4-8.2)
[2019-04-01 13:22] LABS: HEMOGLOBIN A1c 7.4 %
== END ==
LOC: M SFHCPLAZ 10:38
PROVIDERS: ATTEND Physician Assistant Medical
DX: E78.00 Pure hypercholesterolemia, unspecified (principal); R03.0 Elevated blood-pressure reading, without diagnosis of hypertension; E11.69 Type 2 diabetes mellitus with other specified complication

== ENCOUNTER → 2019-11-26 | Outpatient (REF) | payer MEDICARE, MEDICAID ==
[~2019-11-26] MED LIST changes: -SIMV20TA2 PO; +SIMV20TA22 PO
[2019-11-26 15:52] LABS: ALBUMIN 4.4 GM/DL (3.2-5.2); ALT/SGPT 31 U/L (12-78); BILIRUBIN,TOTAL 0.4 MG/DL (0.2-1.0); BLOOD UREA NITROGEN 13 MG/DL (7-18); CALCIUM LEVEL 9.9 MG/DL (8.8-10.2); CARBON DIOXIDE LEVEL 33 MEQ/L (21-32); CHLORIDE LEVEL 104 MEQ/L (98-107); CHOLESTEROL LEVEL 128 MG/DL (<200); CHOLESTEROL RISK RATIO 2.976 (<5); GLOMERULAR FILTRATION RATE > 60.0 (>49); GLUCOSE, FASTING 98 MG/DL (70-100); HDL CHOLESTEROL 43 MG/DL (>40); LDL CHOLESTEROL 45 MG/DL (<100); NON-HDL-C 85 MG/DL; POTASSIUM SERUM 4.3 MEQ/L (3.5-5.1); SODIUM LEVEL 142 MEQ/L (136-145); TOTAL PROTEIN 7.9 GM/DL (6.4-8.2); TRIGLYCERIDES LEVEL 198 MG/DL (<150)
[2019-11-26 16:13] LABS: CREATININE, URINE 52.8 MG/DL; MALB URINE SIEMENS 7.1 MG/L; MAU/CREAT RATIO 13.4 MCG/MG (0.0-30.0)
== END ==
LOC: M LABDRAW1 13:46
PROVIDERS: ATTEND Internal Medicine Endocrinology, Diabetes & Metabolism
DX: E11.65 Type 2 diabetes mellitus with hyperglycemia (principal)

== ENCOUNTER → 2020-02-06 | Outpatient (REF) | payer MEDICARE, MEDICAID ==
[2020-02-06 13:15] LABS: BASO % 0.4 % (0.0-1.0); EOS # 0.1 10^3/uL (0.0-0.5); EOS % 1.6 % (0.0-3.0); HEMATOCRIT 44.4 % (42.0-52.0); LYMPH # 1.7 10^3/uL (1.5-5.0); LYMPH % 33.3 % (24.0-44.0); MEAN CORPUSCULAR HEMOGLOBIN 32.1 pg (27.0-33.0); MEAN CORPUSCULAR HGB CONC 33.8 g/dl (32.0-36.5); MEAN CORPUSCULAR VOLUME 94.9 fl (80.0-96.0); MONO # 0.5 10^3/uL (0.0-0.8); MONO % 9.1 % (0.0-5.0); NEUTROPHILS # 2.9 10^3/uL (1.5-8.5); NEUTROPHILS % 55.4 % (36.0-66.0); PLATELET COUNT, AUTOMATED 173 10^3/uL (150-450); RED BLOOD COUNT 4.68 10^6/uL (4.30-6.10); WHITE BLOOD COUNT 5.2 10^3/uL (4.0-10.0)
[2020-02-06 13:34] LABS: HEMOGLOBIN A1c 7.5 %
[2020-02-06 13:49] LABS: ALBUMIN 4.2 GM/DL (3.2-5.2); ALT/SGPT 31 U/L (12-78); BILIRUBIN,TOTAL 0.4 MG/DL (0.2-1.0); BLOOD UREA NITROGEN 13 MG/DL (7-18); CARBON DIOXIDE LEVEL 29 MEQ/L (21-32); CHLORIDE LEVEL 103 MEQ/L (98-107); CHOLESTEROL LEVEL 136 MG/DL (<200); CHOLESTEROL RISK RATIO 3.162 (<5); CREATININE FOR GFR 0.95 MG/DL (0.70-1.30); GLOMERULAR FILTRATION RATE > 60.0 (>49); GLUCOSE, FASTING 121 MG/DL (70-100); HDL CHOLESTEROL 43 MG/DL (>40); LDL CHOLESTEROL 63 MG/DL (<100); NON-HDL-C 93 MG/DL; POTASSIUM SERUM 4.5 MEQ/L (3.5-5.1); SODIUM LEVEL 137 MEQ/L (136-145); TOTAL PROTEIN 7.3 GM/DL (6.4-8.2); TRIGLYCERIDES LEVEL 151 MG/DL (<150)
[2020-02-06 19:06] LABS: TOTAL 25(OH) VITAMIN D 43.2 NG/ML (30.0-100.0)
== END ==
LOC: M LAB REF 12:10
PROVIDERS: ATTEND Family Medicine
DX: E11.65 Type 2 diabetes mellitus with hyperglycemia (principal); Z79.899 Other long term (current) drug therapy

== ENCOUNTER → 2020-05-14 | Outpatient (REF) | payer MEDICARE, MEDICAID ==
[2020-05-14 12:42] LABS: BASO % 0.4 % (0.0-1.0); EOS # 0.1 10^3/uL (0.0-0.5); EOS % 1.7 % (0.0-3.0); HEMOGLOBIN 15.5 g/dl (13.5-17.5); LYMPH # 1.6 10^3/uL (1.5-5.0); LYMPH % 35.2 % (24.0-44.0); MEAN CORPUSCULAR HGB CONC 33.7 g/dl (32.0-36.5); MEAN CORPUSCULAR VOLUME 94.8 fl (80.0-96.0); MONO # 0.4 10^3/uL (0.0-0.8); MONO % 9.3 % (0.0-5.0); NEUTROPHILS # 2.5 10^3/uL (1.5-8.5); NEUTROPHILS % 53.2 % (36.0-66.0); PLATELET COUNT, AUTOMATED 183 10^3/uL (150-450); RED BLOOD COUNT 4.85 10^6/uL (4.30-6.10); WHITE BLOOD COUNT 4.6 10^3/uL (4.0-10.0)
[2020-05-14 12:56] LABS: ALBUMIN 4.3 GM/DL (3.2-5.2); ALT/SGPT 28 U/L (12-78); BILIRUBIN,TOTAL 0.6 MG/DL (0.2-1.0); BLOOD UREA NITROGEN 21 MG/DL (7-18); CALCIUM LEVEL 9.1 MG/DL (8.8-10.2); CARBON DIOXIDE LEVEL 29 MEQ/L (21-32); CHLORIDE LEVEL 102 MEQ/L (98-107); CHOLESTEROL LEVEL 118 MG/DL (<200); CHOLESTEROL RISK RATIO 3.277 (<5); CREATININE FOR GFR 0.99 MG/DL (0.70-1.30); FREE T4 1.01 NG/DL (0.76-1.46); GLOMERULAR FILTRATION RATE > 60.0 (>49); GLUCOSE, FASTING 130 MG/DL (70-100); HDL CHOLESTEROL 36 MG/DL (>40); LDL CHOLESTEROL 51 MG/DL (<100); NON-HDL-C 82 MG/DL; POTASSIUM SERUM 4.8 MEQ/L (3.5-5.1); SODIUM LEVEL 135 MEQ/L (136-145); TOTAL 25(OH) VITAMIN D 49.9 NG/ML (30.0-100.0); TOTAL PROTEIN 7.5 GM/DL (6.4-8.2); TRIGLYCERIDES LEVEL 156 MG/DL (<150)
[2020-05-14 13:32] LABS: MALB URINE SIEMENS < 5.0 MG/L; MAU/CREAT RATIO 15.1 MCG/MG (0.0-30.0)
[2020-05-14 13:48] LABS: HEMOGLOBIN A1c 6.5 %
== END ==
LOC: M LAB REF 11:30
PROVIDERS: ATTEND Physician Assistant
DX: E11.9 Type 2 diabetes mellitus without complications (principal)

== ENCOUNTER → 2020-09-02 | Outpatient (REF) | payer MEDICARE, MEDICAID ==
[~2020-09-02] MED LIST changes: +GABA-282 PO; -GABA-843 PO
[2020-09-02 17:21] LABS: BASO % 0.6 % (0.0-1.0); EOS # 0.1 10^3/uL (0.0-0.5); LYMPH # 1.5 10^3/uL (1.5-5.0); LYMPH % 30.6 % (24.0-44.0); MEAN CORPUSCULAR HEMOGLOBIN 31.9 pg (27.0-33.0); MEAN CORPUSCULAR HGB CONC 32.6 g/dl (32.0-36.5); MEAN CORPUSCULAR VOLUME 97.9 fl (80.0-96.0); MONO # 0.4 10^3/uL (0.0-0.8); MONO % 8.4 % (0.0-5.0); NEUTROPHILS % 59.2 % (36.0-66.0); PLATELET COUNT, AUTOMATED 198 10^3/uL (150-450)
[2020-09-02 17:44] LABS: ALBUMIN 4.4 GM/DL (3.2-5.2); ALT/SGPT 24 U/L (12-78); BILIRUBIN,TOTAL 0.3 MG/DL (0.2-1.0); BLOOD UREA NITROGEN 20 MG/DL (7-18); CALCIUM LEVEL 9.4 MG/DL (8.8-10.2); CARBON DIOXIDE LEVEL 33 MEQ/L (21-32); CHLORIDE LEVEL 104 MEQ/L (98-107); CHOLESTEROL LEVEL 142 MG/DL (<200); CHOLESTEROL RISK RATIO 3.227 (<5); CREATININE FOR GFR 1.02 MG/DL (0.70-1.30); GLOMERULAR FILTRATION RATE > 60.0 (>49); GLUCOSE, FASTING 133 MG/DL (70-100); HDL CHOLESTEROL 44 MG/DL (>40); LDL CHOLESTEROL 35 MG/DL (<100); NON-HDL-C 98 MG/DL; POTASSIUM SERUM 4.9 MEQ/L (3.5-5.1); SODIUM LEVEL 140 MEQ/L (136-145); TOTAL PROTEIN 7.7 GM/DL (6.4-8.2); TRIGLYCERIDES LEVEL 313 MG/DL (<150)
[2020-09-02 17:46] LABS: CREATININE, URINE 47.7 MG/DL; MALB URINE SIEMENS < 5.0 MG/L; MAU/CREAT RATIO 10.4 MCG/MG (0.0-30.0)
[2020-09-02 18:48] LABS: HEMOGLOBIN A1c 6.7 %
[2020-09-04 04:08] LABS: LDL DIRECT 57 mg/dL (0-99)
== END ==
LOC: M LAB REF 16:07
PROVIDERS: ATTEND Physician Assistant
DX: E11.69 Type 2 diabetes mellitus with other specified complication (principal)

== ENCOUNTER 2020-11-16 06:01 | Emergency (ER) | payer MEDICARE, MEDICAID ==
[~2020-11-16] VITALS: Ht 167.6 cm; Wt 79.4 kg
[~2020-11-16 06:01] MED LIST changes: +LISI10TA22 PO; -LISI10TA4 PO
[2020-11-16] MEDS ORDERED: fentaNYL 100 MCG/2 ML INJECTION (J3010) IV ONE (06:35)
[2020-11-16] MEDS ORDERED: ONDANSETRON 4MG/2ML VIAL IV ONE (06:40)
[2020-11-16 06:56] LABS: BASO % 0.3 % (0.0-1.0); EOS # 0.1 10^3/uL (0.0-0.5); EOS % 0.5 % (0.0-3.0); HEMATOCRIT 45.2 % (42.0-52.0); LYMPH % 9.9 % (24.0-44.0); MEAN CORPUSCULAR HEMOGLOBIN 31.6 pg (27.0-33.0); MEAN CORPUSCULAR HGB CONC 33.2 g/dl (32.0-36.5); MEAN CORPUSCULAR VOLUME 95.4 fl (80.0-96.0); MONO # 0.5 10^3/uL (0.0-0.8); MONO % 4.9 % (2.0-8.0); NEUTROPHILS # 8.3 10^3/uL (1.5-8.5); NEUTROPHILS % 84.1 % (36.0-66.0); PLATELET COUNT, AUTOMATED 177 10^3/uL (150-450); RED BLOOD COUNT 4.74 10^6/uL (4.30-6.10); WHITE BLOOD COUNT 9.9 10^3/uL (4.0-10.0)
[2020-11-16 07:03] LABS: INR 0.85; PARTIAL THROMBOPLASTIN TIME 23.6 SECONDS (24.2-38.5); PROTHROMBIN TIME 11.7 SECONDS (12.5-14.3)
[2020-11-16 07:06] LABS: D-DIMER QUANT 525.04 ng/ml (<500)
[2020-11-16 07:20] LABS: ALBUMIN 4.1 GM/DL (3.2-5.2); BILIRUBIN,DIRECT 0.1 MG/DL (0.0-0.2); BILIRUBIN,TOTAL 0.2 MG/DL (0.2-1.0); TOTAL PROTEIN 7.4 GM/DL (6.4-8.2)
--- NOTE | 2020-11-16 07:41 | REPVR ---
PROCEDURE INFORMATION: Exam: XR Chest Exam date and time: 11/16/2020 6:54 AM Age: 65 years old Clinical indication: Chest pain; Type not specified; Additional info: Upper abd/chest pain TECHNIQUE: Imaging protocol: XR of the chest Views: 1 view. COMPARISON: CR PORTABLE CHEST X-RAY 03/06/2018 12:28 PM FINDINGS: Lungs: The pulmonary vasculature appears mildly congested. There is mild atelectasis at the left base. The lungs are otherwise clear. Pleural spaces: Unremarkable. No pleural effusion. No pneumothorax. Heart/Mediastinum: The cardiomediastinal silhouette is fairly stable in appearance. Bones/joints: Unremarkable. IMPRESSION: Mild pulmonary vascular congestion. Electronically signed by: Bon Weems On 11/16/2020 07:41:39 AM
--- NOTE | 2020-11-16 07:44 | REPVR ---
PROCEDURE INFORMATION: Exam: US Limited Retroperitoneal, Aorta. Exam date and time: 11/16/2020 7:14 AM Age: 65 years old Clinical indication: Abdominal pain; Acute; Additional info: Abd pain radiating to back TECHNIQUE: Imaging protocol: Real-time ultrasound of the retroperitoneum with image documentation. Exam focused on the aorta. COMPARISON: No relevant prior studies available. FINDINGS: Limitations: Bowel gas. Aorta: Abdominal aortic diameters are 2.2 x 2.8 cm proximally, 1.9 x 2.4 cm in the mid aspect and 1.7 x 1.7 cm distally. The aorta was not well visualized at the level of the renal arteries. Common iliac arteries: Iliac artery diameters are 1.2 cm on the left and 1.2 cm on the right. IMPRESSION: Nonaneurysmal abdominal aorta allowing for some non visualization, with maximal dimension 2.8 cm proximally. Follow-up imaging in 5 years is recommended. Electronically signed by: Bon Weems On 11/16/2020 07:44:26 AM
[2020-11-16] MEDS ORDERED: GI COCKTAIL 50ML BTL(HYOSCYAMINE/MAALOX/LIDOCAINE VISCOUS)(1:3:1) PO ONE (07:50)
[2020-11-16] MEDS ORDERED: methylPREDNISolone 125MG 2ML VIAL IV ONE (08:40)
[2020-11-16] MEDS ORDERED: diphenhydrAMINE 50MG/ML VIAL (J1200) IV ONE (08:40)
[2020-11-16] MEDS ORDERED: ISOVUE-370 76% 100ML VIAL As Ordered ONE (09:53)
[2020-11-16] MEDS ORDERED: NS 1,000 ML IV ONE (10:40)
--- NOTE | 2020-11-16 10:42 | REP ---
INDICATION: epigastric pain. COMPARISON: None TECHNIQUE: Axial contrast-enhanced images from the lung bases to the pubic symphysis using 100 cc Isovue 370 intravenous contrast material. . This CT examination was performed using the following dose reduction techniques: Automated exposure control, adjustment of mA and/or kv according to the patient's size, and the use of iterative reconstruction technique. FINDINGS: Liver demonstrates mild fatty infiltration without focal hepatic lesion identified. Spleen, pancreas, gallbladder, bilateral adrenal glands and kidneys are normal. The enteric system including stomach, small, and large bowel appears normal. No evidence for obstruction or acute inflammatory process. Normal terminal ileum and appendix are identified in the right lower quadrant. Few scattered diverticula noted without acute diverticulitis. Pelvis demonstrates normal bladder and mildly enlarged prostate gland. No ascites. No free air. No intraperitoneal or retroperitoneal adenopathy. Abdominal aorta and vasculature appear normal. Musculoskeletal structures are intact and without acute osseous abnormality. IMPRESSION: No acute abdominopelvic pathology appreciated. <Electronically signed by Robbie Patterson > 11/16/20 [id number]
--- NOTE | 2020-11-16 10:57 | REP ---
INDICATION: chest pain, sob. COMPARISON: Portable chest 11/16/2020 TECHNIQUE: CT angiogram chest performed following the intravenous administration of 100 cc of Isovue 370. Sagittal and coronal reconstruction images are performed. I spoke with technologist by the phone and she confirmed the patient did have a 13 hour precontrast allergy protocol because of previous episode of hives. FINDINGS: Lungs: The lung calvo are hypoinflated. Hazy ground-glass opacity posteriorly mid and lower lung zones bilaterally. Calcified granuloma inferior lingular segment left upper lobe at the anterior left lung base adjacent the left heart. See no pleural effusion, parenchymal mass or acute infiltrate with air bronchograms. Some subtle patchy ground-glass opacities in the anterior aspect of the medial segment right middle lobe near the right lung base. No noncalcified pulmonary nodules are identified. No pneumothorax or pneumomediastinum. Mediastinum: No adenopathy or mediastinal mass.. Pulmonary arteries: No evidence of pulmonary embolism. Oliva: No pathologic sized adenopathy. Axilla: No pathologic sized adenopathy. Pleura: No effusion, pleural thickening, calcified pleural plaque or pleural based mass. Some areas of subpleural fat noted, normal. Heart: Not enlarged. No pericardial thickening or effusion. Thoracic aorta: No aneurysm or dissection. Upper abdominal structures: There is no hiatal hernia. Liver, spleen and upper poles of the kidneys in part visualized and grossly unremarkable. There are scattered calcified granulomas in the spleen. Adrenal glands normal visualized pancreas unremarkable. Some stomach filled with retained food material. Visualized osseous structures: There are small superior endplate depressions at T4 and T5 vertebral bodies without paraspinal soft tissue density suggest acute compression deformity. These do appear old. There been laminectomy in the thoracic spine from T2 through T5. 9 IMPRESSION: 1. No CT evidence of pulmonary thromboembolism. No aortic aneurysm or dissection. No mediastinal or hilar mass/adenopathy. 2. Post-laminectomy T2 through T5 and old the grade 1 superior endplate depressions of the T4 and T5 vertebral bodies without paraspinal hematoma or other sign of acuity. 3. A hazy ground-glass opacities most consistent with the dependent atelectatic changes throughout posterior mid and lower lung zones and some mild findings in the subpleural medial medial segment of the right middle lobe. No air bronchograms or dense consolidation. 4. Calcified granuloma inferior lingular segment of the left upper lobe at the anterior lung base and calcified granulomas in the spleen. 5. No other significant finding. <Electronically signed by Eric Vaughn > 11/16/20 [id number]
[2020-11-16] MEDS ORDERED: FAMOTIDINE 20 MG TAB PO ONE (11:10)
[2020-11-16] MEDS ORDERED: PEPC1TAB5 PO (11:11)
[2020-11-16 11:30] VITALS: BP 141/82
--- NOTE | 2020-11-16 18:00 | ECGEPIP ---
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
--- NOTE | 2020-11-17 14:45 | ED PDOC ---
Post-Departure Follow-Up rta us faxed to [facility] for fu Deepa Plummer MD Nov 17, 2020 14:45
== END 2020-11-16 11:57 | disposition home or self-care (01) ==
LOC: M ED 06:01
DX: K29.00 Acute gastritis without bleeding (principal); R09.89 Other specified symptoms and signs involving the circulatory and respiratory systems; R91.8 Other nonspecific abnormal finding of lung field; E11.9 Type 2 diabetes mellitus without complications; I10 Essential (primary) hypertension; K21.9 Gastro-esophageal reflux disease without esophagitis; Z88.6 Allergy status to analgesic agent; Z91.041 Radiographic dye allergy status; Z79.82 Long term (current) use of aspirin; Z79.899 Other long term (current) drug therapy

== ENCOUNTER 2020-11-17 23:20 | Inpatient (IN) | payer MEDICARE, MEDICAID ==
[~2020-11-17] VITALS: Ht 170.2 cm; Wt 83.0 kg
[~2020-11-17 23:20] MED LIST changes: +PEPC1TAB5 PO
[2020-11-18 00:51] LABS: HEMATOCRIT 43.1 % (42.0-52.0); HEMOGLOBIN 14.2 g/dl (13.5-17.5); MEAN CORPUSCULAR HEMOGLOBIN 31.8 pg (27.0-33.0); MEAN CORPUSCULAR HGB CONC 32.9 g/dl (32.0-36.5); MEAN CORPUSCULAR VOLUME 96.6 fl (80.0-96.0); PLATELET COUNT, AUTOMATED 130 10^3/uL (150-450); RED BLOOD COUNT 4.46 10^6/uL (4.30-6.10); WHITE BLOOD COUNT 8.2 10^3/uL (4.0-10.0)
[2020-11-18] MEDS: HYDROMORPHONE HCL 0.5 MG/ 0.5 ML SYRINGE (J1170 PER 1) IV PRN ×7 (00:53→23:33)
[2020-11-18 01:10] LABS: INR 1.18; PARTIAL THROMBOPLASTIN TIME 35.6 SECONDS (24.2-38.5); PROTHROMBIN TIME 15.3 SECONDS (12.5-14.3)
[2020-11-18 01:19] LABS: LYMPHOCYTES 11 % (16-44); MONOCYTES 5 % (0-5); NEUTROPHILS 84 % (28-66)
[2020-11-18 01:20] LABS: PLATELET ESTIMATE DECREASED (NORMAL)
--- NOTE | 2020-11-18 01:24 | REPVR ---
PROCEDURE INFORMATION: Exam: XR Chest Exam date and time: 11/18/2020 12:52 AM Age: 65 years old Clinical indication: Other: Ap; Additional info: Abdominal pain TECHNIQUE: Imaging protocol: XR of the chest Views: 1 view. COMPARISON: CR PORTABLE CHEST X-RAY 11/16/2020 6:50 AM FINDINGS: Lungs: There are low lung volumes. Left greater than right basilar atelectasis and/or infiltrate. Pleural spaces: Small left-sided pleural effusion. Heart/Mediastinum: Stable cardiac silhouette. Bones/joints: Unremarkable. IMPRESSION: 1. Left greater than right basilar atelectasis and/or infiltrate. 2. Suspect small left-sided pleural effusion. Electronically signed by: Gucci King On 11/18/2020 01:24:48 AM
--- NOTE | 2020-11-18 01:25 | REPVR ---
PROCEDURE INFORMATION: Exam: XR Abdomen Exam date and time: 11/18/2020 12:52 AM Age: 65 years old Clinical indication: Other: Ap; Additional info: Abdominal pain TECHNIQUE: Imaging protocol: XR of the abdomen. Views: Frontal supine view of the abdomen. 1 View. COMPARISON: CR ABDOMEN 1 VIEW (KUB) 05/25/2016 9:47 AM FINDINGS: Gastrointestinal tract: Nonobstructive bowel gas pattern. Bones/joints: Osteopenia. There are degenerative changes involving the spine. IMPRESSION: No acute abnormality. Electronically signed by: Gucci King On 11/18/2020 01:25:31 AM
[2020-11-18 01:26] LABS: ALBUMIN 3.3 GM/DL (3.2-5.2); ALT/SGPT 40 U/L (12-78); AMYLASE 111 U/L (25-115); BILIRUBIN,DIRECT 0.7 MG/DL (0.0-0.2); BILIRUBIN,TOTAL 0.9 MG/DL (0.2-1.0); BLOOD UREA NITROGEN 19 MG/DL (7-18); CALCIUM LEVEL 8.8 MG/DL (8.8-10.2); CARBON DIOXIDE LEVEL 26 MEQ/L (21-32); CHLORIDE LEVEL 108 MEQ/L (98-107); CK-MB VALUE MASS < 1.0 NG/ML (<3.6); CPK CREATINE PHOSPHOKINASE 67 U/L (39-308); CREATININE FOR GFR 1.03 MG/DL (0.70-1.30); GLOMERULAR FILTRATION RATE > 60.0 (>49); GLUCOSE, FASTING 153 MG/DL (70-100); LIPASE 500 U/L (73-393); MB/CK RELATIVE INDEX 1.49 (< OR =4); POTASSIUM SERUM 4.4 MEQ/L (3.5-5.1); SODIUM LEVEL 140 MEQ/L (136-145); TOTAL PROTEIN 6.3 GM/DL (6.4-8.2); TROPONIN I < 0.02 NG/ML (< 0.10)
[2020-11-18] MEDS ORDERED: NS 1,000 ML IV ONE (02:20)
[2020-11-18] MEDS ORDERED: diphenhydrAMINE 50MG/ML VIAL (J1200) IV STA (02:38)
[2020-11-18] MEDS ORDERED: methylPREDNISolone 125MG 2ML VIAL IV ONE (02:40)
[2020-11-18] MEDS ORDERED: ISOVUE-370 76% 100ML VIAL As Ordered ONE (02:43)
--- NOTE | 2020-11-18 03:53 | REPVR ---
PROCEDURE INFORMATION: Exam: CT Abdomen And Pelvis With Contrast Exam date and time: 11/18/2020 2:18 AM Age: 65 years old Clinical indication: Abdominal pain; Generalized; Additional info: Worsening abdominal pain, elevated lipase TECHNIQUE: Imaging protocol: Computed tomography of the abdomen and pelvis with contrast. Radiation optimization: All CT scans at this facility use at least one of these dose optimization techniques: automated exposure control; mA and/or kV adjustment per patient size (includes targeted exams where dose is matched to clinical indication); or iterative reconstruction. Contrast material: ISO; Contrast volume: 100 ml; Contrast route: INTRAVENOUS (IV); COMPARISON: CT ABD PELVIS WITH CONTRAST 11/16/2020 10:21 AM FINDINGS: Limitations: Patient motion. Lungs: Linear atelectasis or scarring at both lung bases. Liver: Normal. No mass. Gallbladder and bile ducts: Distended gallbladder with adjacent inflammatory change. Pancreas: Normal. No ductal dilation. Spleen: There are calcified granulomas involving the spleen. Adrenal glands: Normal. No mass. Kidneys and ureters: Normal. No hydronephrosis. Stomach and bowel: Ther there is thickening of the duodenum. There is moderate colonic fecal retention. Appendix: No evidence of appendicitis. Intraperitoneal space: Trace perihepatic ascites. Vasculature: Vascular calcification. Lymph nodes: Unremarkable. No enlarged lymph nodes. Urinary bladder: Distended urinary bladder. Reproductive: Unremarkable as visualized. Bones/joints: There are mild degenerative changes involving the spine. Soft tissues: Small fat containing umbilical hernia. Right inguinal hernia contains fat. IMPRESSION: 1. Distended gallbladder with adjacent inflammatory change concerning for acute cholecystitis. 2. Duodenal thickening with adjacent infiltration, reactive versus duodenitis. Electronically signed by: Gucci King On 11/18/2020 03:53:34 AM
[2020-11-18] MEDS ORDERED: AMPICILLIN SOD/SULBACTAM SOD 3 GM in D5W MINI-BAG PLUS 100 ML IV ONE (05:10)
--- NOTE | 2020-11-18 05:58 | REPVR ---
PROCEDURE INFORMATION: Exam: US Abdomen, Limited; Right Upper Quadrant Exam date and time: 11/18/2020 4:48 AM Age: 65 years old Clinical indication: Abdominal pain; Acute; Additional info: Pain/swelling TECHNIQUE: Imaging protocol: US abdomen. Real time ultrasound with image documentation. Limited exam focused on the right upper quadrant. COMPARISON: ND Abdomen,Flat Plate KUB 05/04/2016 6:28 AM FINDINGS: Liver: Normal. No masses. Gallbladder: There is gallbladder wall thickening measuring up to 4 mm. There is pericholecystic fluid. There is sludge within the gallbladder without definite gallstones. Common bile duct: There is no intrahepatic biliary duct dilatation. The common bile duct measures 6 mm. Pancreas: Visualized pancreas is unremarkable. Right kidney: The right kidney measures up to 10.1 cm. No right renal mass, calcification or ureteral dilatation is present. IMPRESSION: Abnormal gallbladder with wall thickening and pericholecystic fluid. Cholecystitis may be present. Discrete gallstones are not specifically demonstrated however. Correlation with a HIDA scan if clinically indicated. Electronically signed by: Geovani Chase On 11/18/2020 05:58:57 AM
[2020-11-18] MEDS ORDERED: VITMTA PO (07:21)
[2020-11-18] MEDS ORDERED: FISH1000 PO (07:21)
[2020-11-18] MEDS ORDERED: GABA800T4 PO (07:21)
[2020-11-18] MEDS ORDERED: METF10004 PO (07:21)
[2020-11-18] MEDS ORDERED: GLIP5TAB8 PO (07:21)
[2020-11-18] MEDS ORDERED: FAMO20TA PO (07:21)
[2020-11-18] MEDS ORDERED: GLUCAGON INJ 1MG VIAL SC PRN (07:30)
[2020-11-18] MEDS ORDERED: DEXTROSE 50% 50 ML SYRINGE IV PRN (07:30)
[2020-11-18] MEDS ORDERED: GLUCOSE 4GM CHEW TABLET PO PRN (07:30)
[2020-11-18] MEDS ORDERED: HYDROMORPHONE HCL 0.5 MG/ 0.5 ML SYRINGE (J1170 PER 1) IV PRN (07:30)
[2020-11-18] MEDS: NS 1,000 ML IV SCH ×2 (08:34→17:51)
[2020-11-18] MEDS: HumaLOG INSULIN (NovoLOG) PER UNIT SC SCH ×3 (09:45→18:00)
[2020-11-18 10:00] VITALS: BP 149/96
[2020-11-18] MEDS: PIPERACILLIN/TAZOBACTAM SOD 3.375 GM in D5W MINI-BAG PLUS 50 ML IV SCH ×3 (11:43→23:34)
[2020-11-18] MEDS: PANTOPRAZOLE 40MG VIAL (C9113 PER 1) IV SCH (12:07)
[2020-11-18] MEDS: GABAPENTIN 400MG CAP PO SCH ×2 (12:07→22:17)
[2020-11-18] MEDS: ASPIRIN 81MG ENTERIC TABLET PO SCH (12:08)
[2020-11-18] MEDS: MULTIVITAMINS/MINERALS THERAP 1 TAB PO SCH (12:08)
[2020-11-18 14:00] VITALS: BP 129/67
--- NOTE | 2020-11-18 16:46 | HPEPDOC ---
[facility] Medical History & Physical Date of Admission Nov 18, 2020 Date of Service: Nov 18, 2020 Attending Physician: KAL UNDERWOOD MD History and Physical CHIEF COMPLAINT: Abdominal pain HISTORY OF PRESENT ILLNESS: 65 yo M with history of NIDDM, GERD, HLD who presented to the ED on 11/16 with abdominal pain and was discharged home after a CT A/P and CTA showed no abdominal pathology, who now represented to the ED with worsening abdominal pain worst in the RUQ with inability to take an PO and 10/10 excrutiating pain. This time CT A/P showed a distended gall blader with adjacent inflammatory changes concerning for acute cholecystitis as well as duodenal thickening, while the liver was wnl. A gall bladder US showed wall thickening with pericholecystic fluid without discrete stones. WBC was 8.2, Hgb 14.2, platelets 130, na 140, K 4.4, Cr 1.03, lactate 1.7, lipase 500, UA bland and LFTs wnl. AN AXR was without any noted abnormalities while CXR showed L>R atelectasis with a small L pleural effusion. Dr. Hurtado was consulted by the ED and on evaluation he recommended admission to medicine for medical optimization and a HIDA scan for potential cholecystectomy while pursuing medical management. On ROS, he reports 10/10 pain without any radiation, mostly in RUQ that is worse with deep breathing and also referring to his right shoulder. No emesis, no fevers he noted at home. Had pain with trial of PO so he stopped. No chest pain, no palpitations, no change in nature of chronic back pain. PAST MEDICAL HISTORY: HTN NIDDM GERD remote history of a seizure PAST SURGICAL HISTORY: Thoracic spine surgery for removal of tumor Shoulder surgery for removal of benign tumor Bilateral cataract surgeries SOCIAL HISTORY: Lives alone but was recently living with his sister during this illness No alcohol No smoking FAMILY HISTORY: DM ALLERGIES: Please see below. REVIEW OF SYSTEMS: As note above. Otherwise 10 point ROS was negative. HOME MEDICATIONS: Please see below. PHYSICAL EXAMINATION: VITAL SIGNS: HDS, afebrile, on room air GENERAL APPEARANCE: Uncomfortably laying on the bed, asking for something for the pain HEENT: NCAT, EOMI, anicteric CARDIOVASCULAR: RRR, no m/r/g LUNGS: CTAB ABDOMEN: exquisitely tender RUQ, distended, slightly firm, no rebound on my exam, +Dixon's EXTREMITIES: WWP, no edema NEUROLOGICAL: AOx3, CN 2 -12 intact, moving all extremities PSYCHIATRIC: AOx3 LABORATORY DATA and IMAGING: summarized above MICROBIOLOGY: Please see below. ASSESSMENT: 65 yo M with history of NIDDM, GERD, HLD who presented to the ED on 11/16 with abdominal pain and was discharged home after a CT A/P and CTA showed no abdominal pathology, who now represented to the ED with worsening abdominal pain worst in the RUQ with inability to take an PO and / excrutiating pain found to have a distended gall blader with adjacent inflammatory changes c/w acalculous cholecysitis as well as possibility of duodenitis. PLAN: Acalculous cholecystitis: -dilaudid 0.8mg IV Q3HP for severe pain -NPO -pending evaluation by Dr. Hurtado -pending HIDA scan, but c/b the fact that he his pain is very severe and cannot go for four hours without opioid therapy at this time and lay flat for the examination -Q6H SSI, FSBG SSI, IVF, NPO -Empiric pip/tazo -EKG was in NSR, trop negative, INR wnl. Without a significant medical history beyond NIDDM and HTN, he is medically cleared for surgery if indicated. HTN: -continue lisinopril DM: -hold PO antihyperglycemics -SSI Q6H -FSBG Q6H while NPO -hypoglycemia protocol -IVF while NPO HLD: -continue simvastatin DVT ppx: heparin SC Vital Signs Vital Signs Date Time Temp Pulse Resp B/P (MAP) Pulse Ox O2 Delivery O2 Flow Rate FiO2 11/18/20 14:07 18 Room Air 11/18/20 14:00 98.0 114 129/67 (87) 96 Laboratory Data Labs 24H Laboratory Tests 2 11/18/20 00:38: Neutrophils (%) (Auto) , Nucleated Red Blood Cells % (auto) 0.0, Neutrophils 84H, Lymphocytes (Manual) 11L, Monocytes (Manual) 5, Platelet Estimate DECREASE D, Prothrombin Time 15.3H, Prothromb Time International Ratio 1.18, Activated Partial Thromboplast Time 35.6, Urine Color YELLOW, Urine Appearance CLEAR, Urine pH 5.0, Urine Specific [place] 1.040, Urine Protein 1+H, Urine Glucose (UA) 3+H, Urine Ketones 1+H, Urine Blood NEGATIVE, Urine Nitrite NEGATIVE, Urine Bilirubin NEGATIVE, Urine Urobilinogen 0.2, Urine Leukocyte Esterase NEGATIVE, Urine WBC (Auto) 0, Urine RBC (Auto) 0, Urine Hyaline Casts (Auto) 0, Urine Bacteria (Auto) NEGATIVE, Urine Squamous Epithelial Cells 0, Urine Mucus (Auto) SMALL, Urine Sperm (Auto) , Anion Gap 6L, Glomerular Filtration Rate > 60.0, Lactic Acid Level 1.7, Calcium Level 8.8, Total Bilirubin 0.9#, Direct Bilirubin 0.7H, Aspartate Amino Transf (AST/SGOT) 30, Alanine Aminotransferase (ALT/SGPT) 40, Alkaline Phosphatase 75, Total Creatine Kinase 67, Creatine Kinase MB < 1.0, Creatine Kinase MB Relative Index 1.49, Troponin I < 0.02, Total Protein 6.3L, Albumin 3.3, Albumin/Globulin Ratio 1.1, Amylase Level 111, Lipase 500H 11/18/20 08:33: Bedside Glucose (Misc Panel) 154H 11/18/20 11:58: Bedside Glucose (Misc Panel) 154H CBC/BMP Laboratory Tests 11/18/20 00:38 Microbiology Microbiology 11/18/20 Blood Culture, Received Pending 11/18/20 Respiratory Virus Panel (PCR) ([facility]) - Final, Complete Home Medications Scheduled Aspirin (Aspirin EC) 81 Mg Tab, 81 MG PO DAILY Chele/D3/Mag11/Zinc/Customer Service Specialist/Taco/Bor (Caltrate 600+D Plus Tablet) 1 Tab Tab, 1 TAB PO DAILY Canagliflozin (Invokana) 100 Mg Tab, 100 MG PO DAILY Famotidine (Famotidine) 20 Mg Tablet, 20 MG PO BID Gabapentin (Gabapentin) 800 Mg Tablet, 800 MG PO BID Glipizide (Glipizide) 5 Mg Tablet, 5 MG PO DAILY Lisinopril (Lisinopril) 10 Mg Tab, 10 MG PO DAILY Metformin HCl (Metformin HCl) 1,000 Mg Tablet, 1,000 MG PO BID Multivitamins (Thera M Plus Tablet) 1 Each Tablet, 1 TAB PO DAILY [place]-3 Fatty Acids/Fish Oil (Fish Oil 1,000 mg Capsule) 1 Each Capsule, 1,000 MG PO DAILY Simvastatin (Simvastatin) 20 Mg Tab, 20 MG PO DAILY Allergies Coded Allergies: Contrast Media (Verified Allergy, Intermediate, POSSIBLE RASH (SEE COMMENT), 10/11/18) Pt states he received "medicine" in his IV for Cat scan & his face had "rash". Denies diff with topical betadine/iodine. morphine (Verified Allergy, Intermediate, HIVES, 11/16/20) A-FIB/CHADSVASC A-FIB History Current/History of A-Fib/PAF?: No Current PO Anticoag Therapy: No Age/Risk Factor Scoring CHADSVASC: CHADSVASC Response (Comments) Value Age Risk Factor Age 65-74 years old 1 Gender Risk Factor Male 0 Hx of CHF No 0 Hx of HTN Yes 1 Hx of Stroke/TIA/or VTE No 0 Hx of Diabetes Yes 1 Hx of Vascular Disease No 0 Total 3 Treatment Treatment ordered: NONE Reason Anticoagulant not given: Not indicated/[id number] KAL UNDERWOOD MD Nov 18, 2020 16:46
--- NOTE | 2020-11-18 16:48 | HPEPDOC ---
[facility] Medical History & Physical Date of Admission Nov 18, 2020 Date of Service: Nov 18, 2020 History and Physical DUPLICATE ENTERED IN ERROR Vital Signs Vital Signs Date Time Temp Pulse Resp B/P (MAP) Pulse Ox O2 Delivery O2 Flow Rate FiO2 11/18/20 14:07 18 Room Air 11/18/20 14:00 98.0 114 129/67 (87) 96 Laboratory Data Labs 24H Laboratory Tests 2 11/18/20 00:38: Neutrophils (%) (Auto) , Nucleated Red Blood Cells % (auto) 0.0, Neutrophils 84H, Lymphocytes (Manual) 11L, Monocytes (Manual) 5, Platelet Estimate DECREASED, Prothrombin Time 15.3H, Prothromb Time International Ratio 1.18, Activated Partial Thromboplast Time 35.6, Urine Color YELLOW, Urine Appearance CLEAR, Urine pH 5.0, Urine Specific [place] 1.040, Urine Protein 1+H, Urine Glucose (UA) 3+H, Urine Ketones 1+H, Urine Blood NEGATIVE, Urine Nitrite NEGATIVE, Urine Bilirubin NEGATIVE, Urine Urobilinogen 0.2, Urine Leukocyte Esterase NEGATIVE, Urine WBC (Auto) 0, Urine RBC (Auto) 0, Urine Hyaline Casts (Auto) 0, Urine Bacteria (Auto) NEGATIVE, Urine Squamous Epithelial Cells 0, Urine Mucus (Auto) SMALL, Urine Sperm (Auto) , Anion Gap 6L, Glomerular Filtration Rate > 60.0, Lactic Acid Level 1.7, Calcium Level 8.8, Total Bilirubin 0.9#, Direct Bilirubin 0.7H, Aspartate Amino Transf (AST/SGOT) 30, Alanine Aminotransferase (ALT/SGPT) 40, Alkaline Phosphatase 75, Total Creatine Kinase 67, Creatine Kinase MB < 1.0, Creatine Kinase MB Relative Index 1.49, Troponin I < 0.02, Total Protein 6.3L, Albumin 3.3, Albumin/Globulin Ratio 1.1, Amylase Level 111, Lipase 500H 11/18/20 08:33: Bedside Glucose (Misc Panel) 154H 11/18/20 11:58: Bedside Glucose (Misc Panel) 154H CBC/BMP Laboratory Tests 11/18/20 00:38 Microbiology Microbiology 11/18/20 Blood Culture, Received Pending 11/18/20 Respiratory Virus Panel (PCR) ([facility]) - Final, Complete Home Medications Scheduled Aspirin (Aspirin EC) 81 Mg Tab, 81 MG PO DAILY Chele/D3/Mag11/Zinc/Mat Puncher/Taco/Bor (Caltrate 600+D Plus Tablet) 1 Tab Tab, 1 TAB PO DAILY Canagliflozin (Invokana) 100 Mg Tab, 100 MG PO DAILY Famotidine (Famotidine) 20 Mg Tablet, 20 MG PO BID Gabapentin (Gabapentin) 800 Mg Tablet, 800 MG PO BID Glipizide (Glipizide) 5 Mg Tablet, 5 MG PO DAILY Lisinopril (Lisinopril) 10 Mg Tab, 10 MG PO DAILY Metformin HCl (Metformin HCl) 1,000 Mg Tablet, 1,000 MG PO BID Multivitamins (Thera M Plus Tablet) 1 Each Tablet, 1 TAB PO DAILY [place]-3 Fatty Acids/Fish Oil (Fish Oil 1,000 mg Capsule) 1 Each Capsule, 1,000 MG PO DAILY Simvastatin (Simvastatin) 20 Mg Tab, 20 MG PO DAILY Allergies Coded Allergies: Contrast Media (Verified Allergy, Intermediate, POSSIBLE RASH (SEE COMMENT), 10/11/18) Pt states he received "medicine" in his IV for Cat scan & his face had "rash". Denies diff with topical betadine/iodine. morphine (Verified Allergy, Intermediate, HIVES, 11/16/20) KAL UNDERWOOD MD Nov 18, 2020 16:24
[2020-11-18 20:33] VITALS: BP 138/90
[2020-11-18] MEDS: HEPARIN SOD (PORCINE) 5000UNITS/ML 1ML VIAL/SYRINGE SQ SCH ×2 (21:00→22:18)
[2020-11-18] MEDS: SIMVASTATIN 20 MG TAB PO SCH (22:17)
[2020-11-19] MEDS: NS 1,000 ML IV SCH ×3 (03:38→13:03)
[2020-11-19 05:21] VITALS: BP 121/62
[2020-11-19] MEDS: ACETAMINOPHEN TAB 650MG DOSE (2X325MG) PO PRN ×2 (05:58→21:15)
[2020-11-19] MEDS: HumaLOG INSULIN (NovoLOG) PER UNIT SC SCH ×4 (06:00→18:00)
[2020-11-19] MEDS: PIPERACILLIN/TAZOBACTAM SOD 3.375 GM in D5W MINI-BAG PLUS 50 ML IV SCH ×3 (06:20→18:38)
--- NOTE | 2020-11-19 06:26 | ECGEPIP ---
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
[2020-11-19 06:39] LABS: HEMATOCRIT 38.7 % (42.0-52.0); HEMOGLOBIN 12.4 g/dl (13.5-17.5); MEAN CORPUSCULAR HEMOGLOBIN 31.4 pg (27.0-33.0); PLATELET COUNT, AUTOMATED 144 10^3/uL (150-450); RED BLOOD COUNT 3.95 10^6/uL (4.30-6.10); WHITE BLOOD COUNT 10.6 10^3/uL (4.0-10.0)
[2020-11-19] MEDS: HYDROMORPHONE HCL 0.5 MG/ 0.5 ML SYRINGE (J1170 PER 1) IV PRN (06:44)
[2020-11-19 07:03] LABS: ALBUMIN 2.7 GM/DL (3.2-5.2); ALT/SGPT 28 U/L (12-78); BILIRUBIN,TOTAL 0.5 MG/DL (0.2-1.0); BLOOD UREA NITROGEN 24 MG/DL (7-18); CALCIUM LEVEL 7.9 MG/DL (8.8-10.2); CARBON DIOXIDE LEVEL 19 MEQ/L (21-32); CHLORIDE LEVEL 108 MEQ/L (98-107); CREATININE FOR GFR 0.86 MG/DL (0.70-1.30); GLOMERULAR FILTRATION RATE > 60.0 (>49); GLUCOSE, FASTING 105 MG/DL (70-100); POTASSIUM SERUM 4.4 MEQ/L (3.5-5.1); SODIUM LEVEL 139 MEQ/L (136-145); TOTAL PROTEIN 5.8 GM/DL (6.4-8.2)
[2020-11-19] MEDS: PANTOPRAZOLE 40MG VIAL (C9113 PER 1) IV SCH (10:00)
[2020-11-19] MEDS: MULTIVITAMINS/MINERALS THERAP 1 TAB PO SCH (10:00)
[2020-11-19] MEDS: ASPIRIN 81MG ENTERIC TABLET PO SCH (10:01)
[2020-11-19] MEDS: GABAPENTIN 400MG CAP PO SCH ×2 (10:01→21:14)
[2020-11-19] MEDS: HEPARIN SOD (PORCINE) 5000UNITS/ML 1ML VIAL/SYRINGE SQ SCH ×2 (10:02→21:14)
[2020-11-19] MEDS: KETOROLAC 30 MG/ML 1ML VIAL IV PRN ×2 (10:10→17:27)
--- NOTE | 2020-11-19 12:17 | IPNPDOC ---
Text Note Date of Service The patient was seen on 11/19/20. NOTE SUBJECTIVE: -Continues to have abdominal pain, however refusing tylenol and nursing with some concerns about preference for opioid therapy, will switching him to toradol, at least so we can also get the HIDA scan we absolutely need to investigate his pain. PHYSICAL EXAMINATION: VITAL SIGNS: HDS, afebrile, on room air GENERAL APPEARANCE: Uncomfortably laying on the bed, asking for something for the pain HEENT: NCAT, EOMI, anicteric CARDIOVASCULAR: RRR, no m/r/g LUNGS: CTAB ABDOMEN: exquisitely tender RUQ, distended, slightly firm, no rebound on my exam, +Dixon's EXTREMITIES: WWP, no edema NEUROLOGICAL: AOx3, CN 2 -12 intact, moving all extremities PSYCHIATRIC: AOx3 LABORATORY: Reviewed MICROBIOLOGY: Please see below. ASSESSMENT: 65 yo M with history of NIDDM, GERD, HLD who presented to the ED on 11/16 with abdominal pain and was discharged home after a CT A/P and CTA showed no abdominal pathology, who now represented to the ED with worsening abdominal pain worst in the RUQ with inability to take an PO and 10/10 excrutiating pain found to have a distended gall blader with adjacent inflammatory changes c/f acalculous cholecystitis as well as possibility of duodenitis. PLAN: Acalculous cholecystitis: -DC dilaudid 0.8mg IV Q3HP for severe pain and start toradol [id number] for severe pain -NPO except for meds -pending evaluation by Dr. Hurtado, waiting on HIDA scan -pending HIDA scan -Q6H SSI, FSBG SSI, IVF, NPO -Empiric pip/tazo -EKG was in NSR, trop negative, INR wnl. Without a significant medical history beyond NIDDM and HTN, he is medically cleared for surgery if indicated. HTN: -continue lisinopril DM: -hold PO antihyperglycemics -SSI Q6H -FSBG Q6H while NPO -hypoglycemia protocol -IVF while NPO HLD: -continue simvastatin DVT ppx: heparin SC VS,Fishbone, I+O VS, Fishbone, I+O Laboratory Tests 11/19/20 06:04 Vital Signs Date Time Temp Pulse Resp B/P (MAP) Pulse Ox O2 Delivery O2 Flow Rate FiO2 11/19/20 06:54 18 11/19/20 05:21 98.5 106 121/62 (81) 93 Room Air 11/18/20 18:01 2.0 I&O- Last 24 Hours up to 6 AM 11/19/20 05:59 Intake Total 1575 ml Output Total 2025 ml Balance -450 ml KAL UNDERWOOD MD Nov 19, 2020 08:38
[2020-11-19 14:00] VITALS: BP 132/80
--- NOTE | 2020-11-19 15:18 | IPN ---
PROGRESS NOTE DATE: 11/19/2020 HISTORY: Patient was admitted by the hospitalist yesterday morning with severe abdominal pain. He had been seen two days earlier in the emergency department at which time a workup was negative. On presentation yesterday, he had some mild inflammatory changes noted around the gallbladder. He was admitted by the hospitalist for management. At the time of his admission, I thought his pain was entirely out of proportion for what would be expected for acute cholecystitis with the mild degree of pericholecystic inflammation identified on his imaging. He was to have a HIDA scan to further evaluate the gallbladder. Patient has continued to have significant pain overnight. Vital signs show that he has been afebrile over the past 24 hours. His pulse has remained in the low 100s to one hundred and teens. His blood pressure is normal. Intake and output show that yesterday he had 2600 in with 1100 recorded out. He has had a good urine output today as well. PHYSICAL EXAMINATION: Patient is alert and oriented. He is reporting still significant pain, but when asked where this is, he indicates that it is in his abdomen, his back, his shoulder and even in his head. Heart exam reveals a regular rhythm, though he is mildly tachycardic at about 110. The lungs are clear. The abdomen is perhaps mildly distended. He does have some bowel sounds present. The abdomen is soft. He indicates tenderness pretty much everywhere I palpate, although if anything, he seems less tender in the right upper quadrant than in other areas. There is no discreet mass identified. LABORATORY STUDIES: Laboratory studies today show a white count of 11, hemoglobin 12, hematocrit 39 and a platelet count of 144,000. Chemistry profile shows sodium 139, potassium 4.4, chloride 108, CO2 19, BUN 24, creatinine 0.86 and a glucose of 105. Total protein is 5.8 with an albumin of 2.7. IMPRESSION: Patient continues to have abdominal pain fairly diffusely. His examination is not specific for acute cholecystitis. His liver function tests remain normal and he has only a very slight elevation of his white blood cell count. He has not had a HIDA scan done. Overall, I think his abdominal discomfort still seems out of proportion to what would be expected for somebody even if they had very severe acute cholecystitis. RECOMMENDATIONS: I would recommend proceeding with the HIDA scan as soon as possible. Continue with analgesics as necessary. If the HIDA scan shows nonfilling of the gallbladder, then a cholecystectomy would be reasonable. MTDD
[2020-11-19 18:19] LABS: APPEARANCE, URINE CLEAR (CLEAR); BACTERIA, URINE AUTO NEGATIVE (NEGATIVE); BILIRUBIN, URINE AUTO NEGATIVE (NEGATIVE); BLOOD, URINE BLOOD NEGATIVE (NEGATIVE); COLOR, URINE YELLOW (YELLOW); GLUCOSE, URINE (UA) AUTO 3+ mg/dL (NEGATIVE); KETONE, URINE AUTO 2+ mg/dL (NEGATIVE); LEUKOCYTE ESTERASE, URINE AUTO NEGATIVE (NEGATIVE); NITRITE, URINE AUTO NEGATIVE (NEGATIVE); PROTEIN, URINE AUTO 1+ mg/dL (NEGATIVE); RBC, URINE AUTO 1 /HPF (0-3); SPECIFIC GRAVITY URINE AUTO 1.026 (1.002-1.035); SQUAMOUS EPITHELIAL CELL UR AU 0 /HPF (0-6); UROBILINOGEN, URINE AUTO 0.2 mg/dL (0.0-2.0); WBC, URINE AUTO 1 /HPF (0-3)
[2020-11-19 19:53] VITALS: BP 139/89
[2020-11-19] MEDS: SIMVASTATIN 20 MG TAB PO SCH (21:13)
[2020-11-19 21:30] VITALS: BP 145/92
[2020-11-19] MEDS ORDERED: VANCOMYCIN HCL 1,000 MG, VIAL MATE ADAPTER 1 EACH in NS 250 ML IV SCH (22:05)
[2020-11-19] MEDS ORDERED: GI COCKTAIL 50ML BTL(HYOSCYAMINE/MAALOX/LIDOCAINE VISCOUS)(1:3:1) PO ONE (22:05)
--- NOTE | 2020-11-19 22:33 | REPVR ---
PROCEDURE INFORMATION: Exam: XR Chest Exam date and time: 11/19/2020 10:15 PM Age: 65 years old Clinical indication: Other: Pneumonia TECHNIQUE: Imaging protocol: XR of the chest Views: 1 view. COMPARISON: CR PORTABLE CHEST X-RAY 11/18/2020 12:52 AM FINDINGS: Lungs: There is decreased inflation of the lungs. Interval clearing in the lateral left base since the prior study consistent with decreased infiltrate and pleural effusion. Minimal residual left base infiltrate or atelectasis is noted. Right base infiltrate and atelectasis which appears slightly increased despite slightly improved inflation. Pleural spaces: Question of small right pleural effusion. Heart/Mediastinum: The heart and mediastinum are unchanged. Bones/joints: Unremarkable. IMPRESSION: 1. Interval lateral left base clearing since 11/18/2020 with minimal residual left base infiltrate or atelectasis medially. 2. Slightly increased medial right base and perihilar infiltrate or atelectasis since the prior study and question of minimal right pleural effusion. 3. Otherwise stable poor inspiratory chest with slightly improved inflation overall since the prior study. Electronically signed by: Anthony Pagan On 11/19/2020 22:32:56 PM
[2020-11-19] MEDS: COMBIVENT RESPIMAT 100-20MCG INHALER 4GM INH PRN (22:34)
[2020-11-19 22:46] LABS: HEMATOCRIT 40.5 % (42.0-52.0); HEMOGLOBIN 12.7 g/dl (13.5-17.5); MEAN CORPUSCULAR HEMOGLOBIN 31.2 pg (27.0-33.0); MEAN CORPUSCULAR HGB CONC 31.4 g/dl (32.0-36.5); MEAN CORPUSCULAR VOLUME 99.5 fl (80.0-96.0); PLATELET COUNT, AUTOMATED 128 10^3/uL (150-450); RED BLOOD COUNT 4.07 10^6/uL (4.30-6.10); WHITE BLOOD COUNT 6.4 10^3/uL (4.0-10.0)
[2020-11-19] MEDS ORDERED: VANCOMYCIN HCL 750 MG, VIAL MATE ADAPTER 1 EACH in NS 250 ML IV ONE (23:00)
[2020-11-19] MEDS ORDERED: VANCOMYCIN HCL 1,000 MG, VIAL MATE ADAPTER 1 EACH in NS 250 ML IV ONE (23:00)
[2020-11-19 23:09] LABS: ALBUMIN 2.4 GM/DL (3.2-5.2); ALT/SGPT 39 U/L (12-78); BILIRUBIN,TOTAL 0.9 MG/DL (0.2-1.0); BLOOD UREA NITROGEN 24 MG/DL (7-18); CALCIUM LEVEL 7.5 MG/DL (8.8-10.2); CARBON DIOXIDE LEVEL 19 MEQ/L (21-32); CHLORIDE LEVEL 109 MEQ/L (98-107); CREATININE FOR GFR 0.93 MG/DL (0.70-1.30); GLOMERULAR FILTRATION RATE > 60.0 (>49); GLUCOSE, FASTING 109 MG/DL (70-100); POTASSIUM SERUM 4.4 MEQ/L (3.5-5.1); SODIUM LEVEL 140 MEQ/L (136-145); TOTAL PROTEIN 5.6 GM/DL (6.4-8.2); TROPONIN I < 0.02 NG/ML (< 0.10)
[2020-11-20] VITALS (8 sets, daily range): BP systolic 110–139; BP diastolic 58–90
[2020-11-20] MEDS: NS 1,000 ML IV SCH ×4 (00:17→20:21)
[2020-11-20] MEDS: HumaLOG INSULIN (NovoLOG) PER UNIT SC SCH ×4 (00:37→17:28)
[2020-11-20] MEDS: PIPERACILLIN/TAZOBACTAM SOD 3.375 GM in D5W MINI-BAG PLUS 50 ML IV SCH ×4 (01:39→20:21)
[2020-11-20] MEDS: KETOROLAC 30 MG/ML 1ML VIAL IV PRN ×2 (03:09→13:19)
[2020-11-20] MEDS: COMBIVENT RESPIMAT 100-20MCG INHALER 4GM INH PRN ×2 (03:59→13:24)
[2020-11-20] MEDS: ACETAMINOPHEN TAB 650MG DOSE (2X325MG) PO PRN (06:08)
[2020-11-20] MEDS ORDERED: VANCOMYCIN HCL 1,000 MG, VIAL MATE ADAPTER 1 EACH in NS 250 ML IV SCH (07:00)
[2020-11-20 07:18] LABS: HEMATOCRIT 41.1 % (42.0-52.0); HEMOGLOBIN 12.9 g/dl (13.5-17.5); MEAN CORPUSCULAR HEMOGLOBIN 31.4 pg (27.0-33.0); MEAN CORPUSCULAR HGB CONC 31.4 g/dl (32.0-36.5); PLATELET COUNT, AUTOMATED 115 10^3/uL (150-450); RED BLOOD COUNT 4.11 10^6/uL (4.30-6.10)
[2020-11-20 07:42] LABS: ALBUMIN 2.3 GM/DL (3.2-5.2); ALT/SGPT 48 U/L (12-78); BLOOD UREA NITROGEN 22 MG/DL (7-18); CALCIUM LEVEL 7.9 MG/DL (8.8-10.2); CARBON DIOXIDE LEVEL 15 MEQ/L (21-32); CHLORIDE LEVEL 111 MEQ/L (98-107); CREATININE FOR GFR 0.83 MG/DL (0.70-1.30); GLOMERULAR FILTRATION RATE > 60.0 (>49); GLUCOSE, FASTING 108 MG/DL (70-100); POTASSIUM SERUM 4.6 MEQ/L (3.5-5.1); SODIUM LEVEL 140 MEQ/L (136-145); TOTAL PROTEIN 5.6 GM/DL (6.4-8.2)
--- NOTE | 2020-11-20 08:34 | IPNPDOC ---
Text Note Date of Service The patient was seen on 11/20/20. NOTE SUBJECTIVE: -Continues to have abdominal pain and now also complaining of chest pain with some shoulder pain --> CXR remains the same overnight with bibasilar opacities vs. atelectasis and small R pleural effusion. Was given vanc despite being MRSA negative. PHYSICAL EXAMINATION: VITAL SIGNS: HDS, afebrile, on room air GENERAL APPEARANCE: Uncomfortably laying on the bed, asking for something for the pain HEENT: NCAT, EOMI, anicteric CARDIOVASCULAR: RRR, no m/r/g LUNGS: CTAB ABDOMEN: exquisitely tender, distended, slightly firm, no rebound on my exam, +Dixon's EXTREMITIES: WWP, no edema NEUROLOGICAL: AOx3, CN 2 -12 intact, moving all extremities PSYCHIATRIC: AOx3 LABORATORY: Reviewed MICROBIOLOGY: Please see below. ASSESSMENT: 65 yo M with history of NIDDM, GERD, HLD who presented to the ED on 11/16 with abdominal pain and was discharged home after a CT A/P and CTA showed no abdominal pathology, who now represented to the ED with worsening abdominal pain worst in the RUQ with inability to take an PO and 10/10 excrutiating pain found to have a distended gall blader with adjacent inflammatory changes c/f acalculous cholecystitis as well as possibility of duodenitis. PLAN: Presumed acalculous cholecystitis: -Toradol [id number] for severe pain -NPO except for meds -Seen by Dr. Hurtado, waiting on HIDA scan -pending HIDA scan -Q6H SSI, FSBG SSI, IVF, NPO -Empiric pip/tazo -EKG was in NSR, trop negative, INR wnl. Without a significant medical history beyond NIDDM and HTN, he is medically cleared for surgery if indicated. Chest pain: -EKG wnl -torponin was negative -CXR with stable findings of bibasilar atelectasis vs. infiltrates with small R pleural effusion -on zosyn, was given 1 dose of vanc overnight -will get CTA chest and given degree of pain for which I have not yet identified culprit pathology to r/o PE HTN: -continue lisinopril DM: -hold PO antihyperglycemics -SSI Q6H -FSBG Q6H while NPO -hypoglycemia protocol -IVF while NPO HLD: -continue simvastatin DVT ppx: heparin SC VS,Fishbone, I+O VS, Fishbone, I+O Laboratory Tests 11/19/20 22:28 11/20/20 07:01 Vital Signs Date Time Temp Pulse Resp B/P (MAP) Pulse Ox O2 Delivery O2 Flow Rate FiO2 11/20/20 05:47 97.6 91 22 110/70 (83) 96 Nasal Cannula 2.0 I&O- Last 24 Hours up to 6 AM 11/20/20 06:00 Intake Total 595 ml Output Total 1600 ml Balance -1005 ml KAL UNDERWOOD MD Nov 20, 2020 08:34
[2020-11-20] MEDS: GABAPENTIN 400MG CAP PO SCH ×2 (08:45→20:20)
[2020-11-20] MEDS: ASPIRIN 81MG ENTERIC TABLET PO SCH (08:45)
[2020-11-20] MEDS: PANTOPRAZOLE 40MG VIAL (C9113 PER 1) IV SCH (08:45)
[2020-11-20] MEDS: MULTIVITAMINS/MINERALS THERAP 1 TAB PO SCH (08:45)
[2020-11-20] MEDS: HEPARIN SOD (PORCINE) 5000UNITS/ML 1ML VIAL/SYRINGE SQ SCH ×2 (08:46→20:20)
[2020-11-20] MEDS ORDERED: methylPREDNISolone 125MG 2ML VIAL IV ONE (09:15)
[2020-11-20] MEDS ORDERED: diphenhydrAMINE 50MG/ML VIAL (J1200) IV ONE (09:15)
[2020-11-20] MEDS ORDERED: ISOVUE-370 76% 100ML VIAL As Ordered ONE (09:56)
--- NOTE | 2020-11-20 10:54 | REP ---
INDICATION: chest pain r/oo PE. COMPARISON: Chest CT with IV contrast dated 11/16/2020. TECHNIQUE: Chest CT with IV contrast, CT angiography. FINDINGS: There are no emboli in the pulmonary trunk or central pulmonary arteries. There are no emboli in the pulmonary artery lobar or segment branches. There is a new right pleural effusion, not present previously. There is discoid atelectasis in the right middle lobe, not present previously. There is free fluid surrounding the liver the upper abdomen, not present previously. There are no infiltrates or effusions in the left lung. There is a calcified granuloma at the inferior tip of the lingula, unchanged. There are no other lung masses or nodules. There is no mediastinal or hilar lymph node enlargement. No axillary lymphadenopathy. Thoracic aorta is unremarkable. Cardiac size is normal. The visualized upper abdominal contents are unremarkable except for the free fluid surrounding the liver. IMPRESSION: There are no pulmonary emboli. There is a new right pleural effusion. There is discoid atelectasis in the right middle lobe. There is free fluid surrounding the liver in the visualized upper abdomen. Calcified granuloma the inferior tip of the lingula, unchanged. <Electronically signed by Rakesh Gan > 11/20/20 [id number]
[2020-11-20] MEDS ORDERED: BUPIVACAINE HCL 0.25% 30ML VIAL As Ordered ONE (13:50)
[2020-11-20] MEDS ORDERED: LIDOCAINE 1% SDV 30ML VIAL As Ordered ONE (13:50)
--- NOTE | 2020-11-20 14:20 | IPNPDOC ---
Text Note Date of Service The patient was seen on 11/20/20. NOTE Patient been admitted to the hospital since November 18 with severe right upper qu adrant/epigastric pain and discomfort. Actually has been symptomatic for roughly 5 days now. He was previously seen in the ER on 12/18/2019 140 same complaints, had a negative workup including CT scan of the abdomen and pelvis. The only thing showing up on multiple imaging studies is possibility of cholecystitis though he only has a mild leukocytosis, normal LFTs. He continues to complain of severe right upper quadrant pain. When I saw him he was laying on the bed looking very uncomfortable pointing to the right upper quadrant where he hurts most though he also complains of multiple areas of pain including back, chest. Is also complaining of worsening cough exacerbating his pain. He most recently had a CT angiogram of the chest done to workup the complaints of chest pain rule out pulmonary emboli which is negative. Only thing possible that test is the presence of a new perihepatic fluid. The lower cuts did show the gallbladder which appears distended but not terribly inflamed in appearance. No visible gallstones is seen. He has not had the HIDA scan that was requested a couple of days back. On exam he is tender everywhere on his abdomen most tender over the periumbilical, epigastric and right upper quadrant area with moderate guarding over that area. Abdomen is round, mildly distended but soft. Quiet abdomen. Impression and plan: Severe right upper quadrant pain most likely from cholecystitis. Appearance of new ascites or perihepatic fluid is concerning to me. Unfortunately he just had a CT of the chest that was done with only the lower cuts involving the upper abdomen and we did not see any lower abdominal structures. My experience usually with a new ascites is a severe inflammatory process. I discussed his course with his hospitalist was also not sure what is going on with him given the severe discomfort he has been having. I propose going to the operating room and do a diagnostic laparoscopy to figure out if this is his gallbladder and perform cholecystectomy if it is or rule out other things like an internal hernia with strangulation. Patient has agreed to proceed and consented to the procedure. VS,Fishbone, I+O VS, Fishbone, I+O Laboratory Tests 11/19/20 22:28 11/20/20 07:01 Vital Signs Date Time Temp Pulse Resp B/P (MAP) Pulse Ox O2 Delivery O2 Flow Rate FiO2 11/20/20 08:45 110/70 11/20/20 07:55 2.0 11/20/20 05:47 97.6 91 22 96 Nasal Cannula I&O- Last 24 Hours up to 6 AM 11/20/20 06:00 Intake Total 595 ml Output Total 1600 ml Balance -1005 ml MACKENZIE FERNANDO MD Nov 20, 2020 14:20
[2020-11-20] MEDS ORDERED: propofoL 200 MG/20 ML VIAL As Ordered ONE (14:39)
[2020-11-20] MEDS ORDERED: ONDANSETRON 4MG/2ML VIAL As Ordered ONE (14:39)
[2020-11-20] MEDS ORDERED: ROCURONIUM BROMIDE 50 MG/5 ML VIAL As Ordered ONE (14:39)
[2020-11-20] MEDS ORDERED: ESMOLOL INJ 100MG/10ML VIAL As Ordered ONE (14:39)
[2020-11-20] MEDS ORDERED: MIDAZOLAM INJ 2MG/2ML VIAL (J2250 PER 1MG) As Ordered ONE (14:39)
[2020-11-20] MEDS ORDERED: fentaNYL 100 MCG/2 ML INJECTION (J3010) As Ordered ONE ×2 (14:39→15:21)
[2020-11-20] MEDS ORDERED: dexameTHASONE 4 MG/ML 1ML VIAL (J1100 PER 1MG) As Ordered ONE (14:39)
[2020-11-20] MEDS ORDERED: LIDOCAINE 2% 100MG/5ML SDV (FOR ANES.) As Ordered ONE (14:39)
[2020-11-20] MEDS ORDERED: MORPHINE 10 MG/ML 1ML VIAL (J2270) As Ordered ONE (15:23)
[2020-11-20] MEDS ORDERED: SUGAMMADEX SODIUM 500 MG/5 ML VIAL (BRIDION) As Ordered ONE (15:25)
[2020-11-20] MEDS ORDERED: PHENYLephrine 500MCG 5ML (100MCG/ML) SYRINGE As Ordered ONE (15:37)
[2020-11-20] MEDS ORDERED: KETOROLAC 60MG 2ML VIAL As Ordered ONE (16:28)
[2020-11-20] MEDS ORDERED: METOCLOPRAMIDE INJ 10MG/2ML VIAL (J2765 PER 1) IV PRN (19:15)
[2020-11-20] MEDS ORDERED: fentaNYL 100 MCG/2 ML INJECTION (J3010) IV PRN (19:15)
[2020-11-20] MEDS ORDERED: PERCOCET 5MG/325MG TAB PO PRN (19:15)
[2020-11-20] MEDS ORDERED: LR 1,000 ML IV SCH (19:15)
[2020-11-20] MEDS ORDERED: ONDANSETRON 4MG/2ML VIAL IV PRN (19:15)
[2020-11-20] MEDS: SIMVASTATIN 20 MG TAB PO SCH (20:21)
[2020-11-21] VITALS (7 sets, daily range): BP systolic 111–127; BP diastolic 64–94
[2020-11-21] MEDS: HumaLOG INSULIN (NovoLOG) PER UNIT SC SCH ×5 (00:56→20:19)
[2020-11-21] MEDS: PIPERACILLIN/TAZOBACTAM SOD 3.375 GM in D5W MINI-BAG PLUS 50 ML IV SCH ×4 (00:57→20:17)
[2020-11-21] MEDS ORDERED: METOPROLOL 5 MG/5 ML VIAL IV STA ×3 (04:23→05:04)
--- NOTE | 2020-11-21 04:28 | IPNPDOC ---
Date Seen The patient was seen on 11/21/20. Progress Note Patient noted to be tachycardic to 170s. EKG reviewed. Likely 2:1 atrial flutter. Patient reports palpitations. Hemodynamically stable. POD #0 s/p cholecystectomy for perforate cholecystitis. Orders to transfer to PCU. IV metoprolol ordered. 2D echo. Check TSH, trop bmp, cbc, cmp, mag and phos. VS, I&O, 24H, Fishbone Vital Signs/I&O Vital Signs Date Time Temp Pulse Resp B/P (MAP) Pulse Ox O2 Delivery O2 Flow Rate FiO2 11/21/20 01:13 98.9 167 20 124/93 (103) 94 Nasal Cannula 2.0 I&O- Last 24 Hours up to 6 AM 11/21/20 06:00 Intake Total 4395 ml Output Total 2655 ml Balance 1740 ml Laboratory Data 24H LABS Laboratory Tests 2 11/20/20 05:59: Bedside Glucose (Misc Panel) 102 11/20/20 07:01: Nucleated Red Blood Cells % (auto) 0.3H, Anion Gap 14, Glomerular Filtration Rate > 60.0, Calcium Level 7.9L, Total Bilirubin 1.0, Aspartate Amino Transf (AST/SGOT) 58H, Alanine Aminotransferase (ALT/SGPT) 48, Alkaline Phosphatase 117, Total Protein 5.6L, Albumin 2.3L, Albumin/Globulin Ratio 0.7 11/20/20 11:50: Bedside Glucose (Misc Panel) 123H 11/20/20 17:18: Bedside Glucose (Misc Panel) 202H 11/20/20 23:03: Bedside Glucose (Misc Panel) 278H CBC/BMP Laboratory Tests 11/20/20 07:01 Microbiology Microbiology 11/20/20 Anaerobic Culture, Received Pending 11/20/20 Gram Stain, Received Pending 11/20/20 Abscess Culture, Received Pending 11/20/20 Anaerobic Culture, Received Pending 11/20/20 Gram Stain, Received Pending 11/20/20 Body Fluid Culture, Received Pending 11/19/20 Gram Stain - Final, Resulted 11/19/20 Sputum Culture, Resulted Pending 11/18/20 Blood Culture - Preliminary, Resulted No Growth after 48 hours. All Specime... 11/18/20 Respiratory Virus Panel (PCR) (FILOMENA) - Final, Complete POLINKEVYCH,DIAMANTE MD Nov 21, 2020 04:28
[2020-11-21] MEDS ORDERED: METOPROLOL TART 25 MG TABLET PO SCH (06:00)
[2020-11-21 06:18] LABS: HEMATOCRIT 41.4 % (42.0-52.0); HEMOGLOBIN 13.5 g/dl (13.5-17.5); MEAN CORPUSCULAR HEMOGLOBIN 31.8 pg (27.0-33.0); MEAN CORPUSCULAR HGB CONC 32.6 g/dl (32.0-36.5); MEAN CORPUSCULAR VOLUME 97.4 fl (80.0-96.0); PLATELET COUNT, AUTOMATED 107 10^3/uL (150-450); RED BLOOD COUNT 4.25 10^6/uL (4.30-6.10); WHITE BLOOD COUNT 11.1 10^3/uL (4.0-10.0)
[2020-11-21 06:33] LABS: MAGNESIUM LEVEL 2.8 MG/DL (1.8-2.4); PHOSPHORUS LEVEL 2.6 MG/DL (2.5-4.9)
[2020-11-21 06:43] LABS: ALBUMIN 1.9 GM/DL (3.2-5.2); ALT/SGPT 132 U/L (12-78); BILIRUBIN,TOTAL 0.5 MG/DL (0.2-1.0); BLOOD UREA NITROGEN 28 MG/DL (7-18); CALCIUM LEVEL 7.2 MG/DL (8.8-10.2); CARBON DIOXIDE LEVEL 18 MEQ/L (21-32); CHLORIDE LEVEL 113 MEQ/L (98-107); CREATININE FOR GFR 1.17 MG/DL (0.70-1.30); GLOMERULAR FILTRATION RATE > 60.0 (>49); GLUCOSE, FASTING 263 MG/DL (70-100); NT-PRO BNP 1584 PG/ML (<125); POTASSIUM SERUM 4.6 MEQ/L (3.5-5.1); SODIUM LEVEL 140 MEQ/L (136-145); THYROID STIMULATING HORMONE 0.299 uIU/ML (0.358-3.740); TOTAL PROTEIN 5.4 GM/DL (6.4-8.2); TROPONIN I < 0.02 NG/ML (< 0.10)
[2020-11-21] MEDS ORDERED: DIGOXIN INJ 0.5 MG/2 ML AMP (J1160) IV STA (06:55)
[2020-11-21] MEDS ORDERED: AMIODARONE HCL 150 MG in IV 1 EA IV STA (07:55)
[2020-11-21] MEDS ORDERED: AMIODARONE HCL 360 MG in IV 1 EA IV SCH (09:05)
[2020-11-21] MEDS: HEPARIN SOD (PORCINE) 5000UNITS/ML 1ML VIAL/SYRINGE SQ SCH ×2 (09:34→20:19)
[2020-11-21] MEDS: PANTOPRAZOLE 40MG VIAL (C9113 PER 1) IV SCH (09:34)
[2020-11-21] MEDS: GABAPENTIN 400MG CAP PO SCH ×2 (09:34→20:17)
[2020-11-21] MEDS: MULTIVITAMINS/MINERALS THERAP 1 TAB PO SCH (09:35)
--- NOTE | 2020-11-21 10:03 | ECGEPIP ---
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
--- NOTE | 2020-11-21 11:05 | IPNPDOC ---
Text Note Date of Service The patient was seen on 11/21/20. NOTE SUBJECTIVE: -Had referred shoulder pain R>L and pleurisy yesterday AM --> CTA chest did not show PE. Was seen by Dr. Al who took him to the OR and found a ruptured gall bladder and performed a robot assisted lap cholecystectomy --> overnight developed Aflutter with RVR to 160s that persists, asymptomatic --> s/p Metop, dilt and digoxin without effect --> now giving amio 150 IV x 1 with plan to start amio gtt if persisting. -Abd and chest pain have definitely improved since surgery yesterday PHYSICAL EXAMINATION: VITAL SIGNS: HDS, afebrile, on room air GENERAL APPEARANCE: NAD, irritable HEENT: NCAT, EOMI, anicteric CARDIOVASCULAR: RRR, no m/r/g LUNGS: CTAB ABDOMEN: tender has improved abd pain, no rebound on my exam, normoactive sounds, lap sites c/d/i, has a drain at RUQ. EXTREMITIES: WWP, no edema NEUROLOGICAL: AOx3, CN 2 -12 intact, moving all extremities PSYCHIATRIC: AOx3 LABORATORY: Reviewed WBC 11.1 Hgb 13.5 platelets 107 Na 140 K 4.6 Cr 1.17 proBNP 1584 trop <0.02 Mag 2.8 AST 126 ALT 132 alk phos 141 MICROBIOLOGY: Please see below. BCx NGTD abd pericholecystic fluid culture pending ASSESSMENT: 65 yo M with history of NIDDM, GERD, HLD who presented to the ED on 11/16 with abdominal pain and was discharged home after a CT A/P and CTA showed no abdominal pathology, who now represented to the ED with worsening abdominal pain worst in the RUQ with inability to take an PO and 10/10 excrutiating pain found to have a distended gall blader with adjacent inflammatory changes c/f acalculous cholecystitis as well as possibility of duodenitis. PLAN: Cholecystitis w/ ruptured gallbladder: -POD#1 s/p robot assisted lap cholecystectomy -Toradol [id number] for severe pain -NPO except for meds -Q6H SSI, FSBG SSI, IVF, NPO -cont pip/tazo Chest pain: resolved -EKG wnl -troponin was negative -CXR with stable findings of bibasilar atelectasis vs. infiltrates with small R pleural effusion -on zosyn -CTA chest negative for PE Aflutter with RVR: -s/p metop, dilt and dig without effect at this time --> will give amio 150 IV stat and monitor with tentative plan for amio gtt if persistent -telemetry -BP in low 100s, on room air, asymptomatic HTN: -hold lisinopril DM: -hold PO antihyperglycemics -SSI Q6H -FSBG Q6H while NPO -hypoglycemia protocol -IVF while NPO HLD: -continue simvastatin DVT ppx: heparin SC VS,Fishbone, I+O VS, Fishbone, I+O Laboratory Tests 11/21/20 05:49 Vital Signs Date Time Temp Pulse Resp B/P (MAP) Pulse Ox O2 Delivery O2 Flow Rate FiO2 11/21/20 07:01 167 11/21/20 05:10 122/74 11/21/20 05:00 2.0 11/21/20 04:34 98.6 20 96 Nasal Cannula I&O- Last 24 Hours up to 6 AM 11/21/20 06:00 Intake Total 4495 ml Output Total 2655 ml Balance 1840 ml KAL UNDERWOOD MD Nov 21, 2020 08:10
[2020-11-21] MEDS ORDERED: GLUCAGON INJ 1MG VIAL SC PRN (12:05)
[2020-11-21] MEDS ORDERED: DEXTROSE 50% 50 ML SYRINGE IV PRN (12:05)
[2020-11-21] MEDS ORDERED: GLUCOSE 4GM CHEW TABLET PO PRN (12:05)
[2020-11-21] MEDS: SIMVASTATIN 20 MG TAB PO SCH (20:17)
[2020-11-21] MEDS: ACETAMINOPHEN TAB 650MG DOSE (2X325MG) PO PRN (20:18)
[2020-11-21] MEDS: AMIODARONE 200 MG TAB (PACERONE) PO SCH (20:27)
[2020-11-22] VITALS: BP 113/60
[2020-11-22] MEDS: PIPERACILLIN/TAZOBACTAM SOD 3.375 GM in D5W MINI-BAG PLUS 50 ML IV SCH ×2 (01:04→08:23)
[2020-11-22 04:00] VITALS: BP 139/71
[2020-11-22 05:37] LABS: HEMATOCRIT 35.6 % (42.0-52.0); HEMOGLOBIN 11.9 g/dl (13.5-17.5); MEAN CORPUSCULAR HEMOGLOBIN 31.8 pg (27.0-33.0); MEAN CORPUSCULAR HGB CONC 33.4 g/dl (32.0-36.5); MEAN CORPUSCULAR VOLUME 95.2 fl (80.0-96.0); RED BLOOD COUNT 3.74 10^6/uL (4.30-6.10); WHITE BLOOD COUNT 11.6 10^3/uL (4.0-10.0)
[2020-11-22 05:57] LABS: ALBUMIN 1.9 GM/DL (3.2-5.2); ALT/SGPT 101 U/L (12-78); BILIRUBIN,TOTAL 0.3 MG/DL (0.2-1.0); BLOOD UREA NITROGEN 25 MG/DL (7-18); CALCIUM LEVEL 7.2 MG/DL (8.8-10.2); CARBON DIOXIDE LEVEL 25 MEQ/L (21-32); CHLORIDE LEVEL 114 MEQ/L (98-107); CREATININE FOR GFR 0.91 MG/DL (0.70-1.30); GLOMERULAR FILTRATION RATE > 60.0 (>49); GLUCOSE, FASTING 266 MG/DL (70-100); POTASSIUM SERUM 4.2 MEQ/L (3.5-5.1); SODIUM LEVEL 143 MEQ/L (136-145); TOTAL PROTEIN 4.9 GM/DL (6.4-8.2)
--- NOTE | 2020-11-22 07:43 | ROOPDOC ---
[facility] Report Of Operation Report of Operation DATE OF PROCEDURE: 11/22/20 PREPROCEDURE DIAGNOSES: Acute cholecystitis. POSTPROCEDURE DIAGNOSES: Gangrenous cholecystitis. PROCEDURE: Robotic-assisted laparoscopic cholecystectomy. SURGEON: Ck Al MD TOOL TECHNICIAN: ANESTHESIA: General Endotracheal Anesthesia. ESTIMATED BLOOD LOSS: Approximately 100 mL. COMPLICATIONS: none. REMARKS: 65-year-old male with persistent severe epigastric and right upper quadrant pain for about 5 days now though minimal findings on multiple imaging studies. Most recent study was a CT angiogram of the chest with the lower cuts being able to visualize the dome of the liver as well as the gallbladder. I was concerned about the presence of new ascites on top of the liver which usually portends to this cholecystitis a more severe events as I decided to bring him to the OR. PROCEDURE NOTE: Gangrenous cholecystitis with the whole right side of the diaphragm covered with exudates, moderate purulent ascites in top of the liver and surrounding gallbladder. Perforation of the gallbladder with necrosis wall, liquefied necrosis of the posterior wall DESCRIPTION OF PROCEDURE: . CK AL MD Nov 22, 2020 07:43
--- NOTE | 2020-11-22 07:49 | IPNPDOC ---
Text Note Date of Service The patient was seen on 11/21/20. NOTE Patient was transferred overnight from the regular med surge floor to the [facility] ressive care unit for heart rate in the 170s, atrial flutter/fibrillation. Otherwise patient reports he is feeling much better with regards to his abdominal discomfort. Denies any severe nausea, bloating. He is tolerating clear liquids and feeling hungry. He denies any chest pain or shortness of breath. Vital signs His heart rate has been in the teens, 120s perioperatively he was noted to have heart rate go up in the 160s 170s later on last evening though his blood pressure remained stable throughout this time. Currently blood pressure 116/72, heart rate of 114 temperature 98.4 95% a total liters nasal cannula. Examination Patient seen laying flat in bed, awake alert and oriented. He appears more comfortable. No JVD Lung sounds clear anteriorly, and laterally Tachycardic, regular rhythm Abdomen: Slightly rounded, soft, mildly distended. Port sites covered with glue, minimal skin ecchymosis surrounding it. CHIVO drain dark serosanguineous. Nontender on palpation. No significant extremity edema Impression and plan Postop day 1 are a laparoscopic cholecystectomy for severe acute cholecystitis SVT versus atrial flutter controlled now, hemodynamically stable. Most likely not an organic heart problem but a systemic response to the infection. He seems to be well hydrated and is holding with his pressures. Okay to advance diet Continue to monitor the drains. VS,Fishbone, I+O VS, Fishbone, I+O Laboratory Tests 11/22/20 05:08 Vital Signs Date Time Temp Pulse Resp B/P (MAP) Pulse Ox O2 Delivery O2 Flow Rate FiO2 11/22/20 04:00 99.2 73 18 139/71 (93) 99 Nasal Cannula 2.0 I&O- Last 24 Hours up to 6 AM 11/22/20 05:59 Intake Total 2495 ml Output Total 1980 ml Balance 515 ml MACKENZIE FERNANDO MD Nov 22, 2020 07:49
[2020-11-22 08:00] VITALS: BP 146/78
[2020-11-22] MEDS: HumaLOG INSULIN (NovoLOG) PER UNIT SC SCH ×4 (08:24→20:09)
[2020-11-22] MEDS: PANTOPRAZOLE 40MG VIAL (C9113 PER 1) IV SCH (08:24)
[2020-11-22] MEDS: AMIODARONE 200 MG TAB (PACERONE) PO SCH (08:24)
[2020-11-22] MEDS: MULTIVITAMINS/MINERALS THERAP 1 TAB PO SCH (08:24)
[2020-11-22] MEDS: GABAPENTIN 400MG CAP PO SCH ×2 (08:24→20:09)
[2020-11-22] MEDS: HEPARIN SOD (PORCINE) 5000UNITS/ML 1ML VIAL/SYRINGE SQ SCH ×2 (08:25→20:09)
[2020-11-22] MEDS ORDERED: CIPROFLOXACIN 400 MG in IV 1 EA IV SCH (09:00)
[2020-11-22] MEDS: CIPROFLOXACIN 500MG TABLET PO SCH ×2 (09:54→17:57)
--- NOTE | 2020-11-22 11:17 | IPNPDOC ---
Text Note Date of Service The patient was seen on 11/22/20. NOTE SUBJECTIVE: -Doing well, was advanced to a regular diet -Converted back to sinus yesterday afternoon after amio and on amio 200 QD -Abd and chest pain continue to improve since surgery PHYSICAL EXAMINATION: VITAL SIGNS: HDS, afebrile, on room air GENERAL APPEARANCE: NAD, irritable HEENT: NCAT, EOMI, anicteric CARDIOVASCULAR: RRR, no m/r/g LUNGS: CTAB ABDOMEN: mildly tender abd pain, no rebound on my exam, normoactive sounds, lap sites c/d/i, has a drain at RUQ. EXTREMITIES: WWP, no edema NEUROLOGICAL: AOx3, CN 2 -12 intact, moving all extremities PSYCHIATRIC: AOx3 LABORATORY: Reviewed WBC 11.6 Hgb 11.9 Cr 0.991 AST 50 ALT 101 MICROBIOLOGY: Please see below. BCx NGTD abd pericholecystic fluid culture growing pip/tazo resistant Klebs ASSESSMENT: 65 yo M with history of NIDDM, GERD, HLD who presented to the ED on 11/16 with abdominal pain and was discharged home after a CT A/P and CTA showed no abdominal pathology, who now represented to the ED with worsening abdominal pain worst in the RUQ with inability to take an PO and 10/10 excrutiating pain found to have a distended gall blader with adjacent inflammatory changes c/f acalculous cholecystitis as well as possibility of duodenitis. PLAN: Cholecystitis w/ ruptured gallbladder: -POD#2 s/p robot assisted lap cholecystectomy -Toradol [id number] PO for severe pain -now on regular diet -AC/HS SSI, FSBG SSI -Discontinue pip/tazo and start cipro PO Chest pain: resolved -EKG wnl -troponin was negative -CXR with stable findings of bibasilar atelectasis vs. infiltrates with small R pleural effusion -on cipro -CTA chest negative for PE Aflutter with RVR: -s/p metop, dilt and dig without effect at this time s/p amio 150 with resolution. Will stop amio at this time, I suspect was 2/2 infection and postop without organic cardiac etiology -telemetry -BP in low 100s, on room air, asymptomatic HTN: -resume lisinopril DM: -hold PO antihyperglycemics -SSI ACHS -FSBG ACHS -hypoglycemia protocol -consistent carb diet HLD: -continue simvastatin DVT ppx: heparin SC VS,Fishbone, I+O VS, Fishbone, I+O Laboratory Tests 11/22/20 05:08 Vital Signs Date Time Temp Pulse Resp B/P (MAP) Pulse Ox O2 Delivery O2 Flow Rate FiO2 11/22/20 08:00 98.2 65 16 146/78 (100) 96 Nasal Cannula 2.0 I&O- Last 24 Hours up to 6 AM 11/22/20 06:00 Intake Total 2645 ml Output Total 2255 ml Balance 390 ml KAL UNDERWOOD MD Nov 22, 2020 08:39
[2020-11-22 12:00] VITALS: BP 140/70
[2020-11-22] MEDS: KETOROLAC TROMETHAMINE 10 MG TAB PO PRN ×2 (12:38→22:30)
--- NOTE | 2020-11-22 14:41 | ECHO ---
DATE OF PROCEDURE: 11/21/2020 Age: 65 Gender: Male Height: 168 cm Weight: 76 kg REFERRING PHYSICIAN: Dr. Silvio Arriaga. INDICATION: Atrial fibrillation. MEASUREMENTS: IVS 1.1 cm LV 4.5 cm LVPW 0.9 cm LA 3.9 cm Aorta 3.2 cm RV 3.1 cm IVC 2.1 cm FINDINGS: This study is of acceptable technical quality. There are technically good parasternal views, but apical views are very limited. Left ventricle is normal size and overall has normal contractility. I estimated EF around 60 to 65%. No segmental wall motion abnormalities are noted. Right ventricle also appears normal size and systolic function. Both atria appear normal. Aortic, mitral, tricuspid, and pulmonic valves are all reasonably well seen and appear grossly normal. No pericardial effusion is noted. Inferior vena cava is dilated but has some collapse with inspiration indicative of likely mildly elevated central venous pressure. Aortic root and aortic arch appear normal. Abdominal aorta was poorly visualized. Doppler interrogation reveals competent aortic valve. There is trace mitral and tricuspid insufficiency. Pulmonic valve is functionally competent. Calculated pulmonary artery pressure is in upper limits of normal values. Mitral inflow pattern and tissue Doppler imaging of mitral annulus are nondiagnostic for diagnosis of diastolic function due to underlying atrial fibrillation. CONCLUSIONS: 1. Study is of acceptable technical quality, underlying atrial fibrillation. 2. Normal LV size with normal LV systolic function. 3. No significant valvular disease. 4. Likely mildly elevated central venous pressure but probably normal pulmonary artery pressure. MTDD
[2020-11-22 16:00] VITALS: BP 135/88
[2020-11-22 20:00] VITALS: BP 138/77
[2020-11-22] MEDS: SIMVASTATIN 20 MG TAB PO SCH (20:09)
[2020-11-23] VITALS: BP 150/76
[2020-11-23 04:00] VITALS: BP 143/66
[2020-11-23] MEDS: CIPROFLOXACIN 500MG TABLET PO SCH (05:22)
[2020-11-23 06:05] LABS: HEMATOCRIT 37.7 % (42.0-52.0); HEMOGLOBIN 12.8 g/dl (13.5-17.5); MEAN CORPUSCULAR HEMOGLOBIN 31.3 pg (27.0-33.0); MEAN CORPUSCULAR VOLUME 92.2 fl (80.0-96.0); PLATELET COUNT, AUTOMATED 104 10^3/uL (150-450); RED BLOOD COUNT 4.09 10^6/uL (4.30-6.10)
[2020-11-23 06:43] LABS: ALBUMIN 2.2 GM/DL (3.2-5.2); ALT/SGPT 115 U/L (12-78); BILIRUBIN,TOTAL 0.6 MG/DL (0.2-1.0); BLOOD UREA NITROGEN 15 MG/DL (7-18); CALCIUM LEVEL 7.8 MG/DL (8.8-10.2); CARBON DIOXIDE LEVEL 29 MEQ/L (21-32); CHLORIDE LEVEL 107 MEQ/L (98-107); CREATININE FOR GFR 0.78 MG/DL (0.70-1.30); GLOMERULAR FILTRATION RATE > 60.0 (>49); GLUCOSE, FASTING 250 MG/DL (70-100); POTASSIUM SERUM 3.7 MEQ/L (3.5-5.1); SODIUM LEVEL 140 MEQ/L (136-145); TOTAL PROTEIN 5.7 GM/DL (6.4-8.2)
[2020-11-23] MEDS: KETOROLAC TROMETHAMINE 10 MG TAB PO PRN (07:34)
[2020-11-23] MEDS: HumaLOG INSULIN (NovoLOG) PER UNIT SC SCH ×2 (07:34→12:04)
[2020-11-23] MEDS: MULTIVITAMINS/MINERALS THERAP 1 TAB PO SCH (07:34)
[2020-11-23] MEDS: GABAPENTIN 400MG CAP PO SCH (07:35)
[2020-11-23 07:36] VITALS: BP 148/76
[2020-11-23] MEDS: HEPARIN SOD (PORCINE) 5000UNITS/ML 1ML VIAL/SYRINGE SQ SCH (07:37)
[2020-11-23 08:00] VITALS: BP 148/76
[2020-11-23] MEDS ORDERED: PANTOPRAZOLE 40MG TAB (PROTONIX) PO SCH (09:00)
[2020-11-23] MEDS ORDERED: TRAM50TA2 PO (10:28)
[2020-11-23] MEDS ORDERED: ACET325C5 PO (10:28)
[2020-11-23] MEDS ORDERED: LEVO500T3 PO (10:28)
[2020-11-23 12:00] VITALS: BP 143/83
--- NOTE | 2020-11-23 21:56 | DS.PDOC ---
Discharge Summary General Date of Admission Nov 18, 2020 at 07:27 Date of Discharge 11/23/20 Attending Physician: Theresa Merrill MD Discharge Summary HISTORY OF PRESENT ILLNESS: 65 yo M with history of NIDDM, GERD, HLD who presented to the ED on 11/16 with abdominal pain and was discharged home after a CT A/P and CTA showed no abdominal pathology, who now represented to the ED with worsening abdominal pain worst in the RUQ with inability to take an PO and 10/10 excrutiating pain. This time CT A/P showed a distended gall blader with adjacent inflammatory changes concerning for acute cholecystitis as well as duodenal thickening, while the liver was wnl. A gall bladder US showed wall thickening with pericholecystic fluid without discrete stones. WBC was 8.2, Hgb 14.2, platelets 130, na 140, K 4.4, Cr 1.03, lactate 1.7, lipase 500, UA bland and LFTs wnl. AN AXR was without any noted abnormalities while CXR showed L>R atelectasis with a small L pleural effusion. Dr. Hurtado was consulted by the ED and on evaluation he recommended admission to medicine for medical optimization and a HIDA scan for potential cholecystectomy while pursuing medical management. On ROS, he reports 10/10 pain without any radiation, mostly in RUQ that is worse with deep breathing and also referring to his right shoulder. No emesis, no fevers he noted at home. Had pain with trial of PO so he stopped. No chest pain, no palpitations, no change in nature of chronic back pain. Admitting diagnosis: Acute cholecystitis. HOSPITAL COURSE: Patient was started on IV abx and watched for several days on these. On 11/22/20, due to persistent symptoms, patient was taken for robotic-assisted laparoscopic cholecystectomy, found to have gangrenous cholecystitis. CHIVO drain was placed. Cultures later grew Klebsiella pneumonia and E. faecalis. By 11/23/20 patient's WBC was wnl, he was afebrile. Much improved tolerating diet. Decision was made to d/c home with PO levofloxacin and f/u with Dr. Al early next week. At time of discharge patient denied chest pain, shortness of breath, increased abdominal pain, n/v/d. PAST MEDICAL HISTORY: HTN NIDDM GERD remote history of a seizure PAST SURGICAL HISTORY: Thoracic spine surgery for removal of tumor Shoulder surgery for removal of benign tumor Bilateral cataract surgeries SOCIAL HISTORY: Lives alone but was recently living with his sister during this illness No alcohol No smoking FAMILY HISTORY: DM DISCHARGE MEDICATIONS: Please see below PHYSICAL EXAMINATION: VITAL SIGNS: Please see below GENERAL APPEARANCE: NAD, irritable HEENT: NCAT, EOMI, anicteric CARDIOVASCULAR: RRR, no m/r/g LUNGS: CTAB ABDOMEN: mildly tender abd pain with palpation, no rebound on my exam, normoactive sounds, lap sites c/d/i, has CHIVO drain at RUQ. EXTREMITIES: WWP, no edema NEUROLOGICAL: AOx3, CN 2 -12 intact, moving all extremities PSYCHIATRIC: AOx3 LABORATORY: Please see below MICROBIOLOGY: Please see below. BCx NGTD Abd pericholecystic fluid culture growing Klebs, E. faecalis ASSESSMENT: 65 yo M with history of NIDDM, GERD, HLD who presented to the ED on 11/16 with abdominal pain and was discharged home after a CT A/P and CTA showed no abd ominal pathology, who now represented to the ED with worsening abdominal pain worst in the RUQ with inability to take an PO and 10/10 excrutiating pain found to have a distended gall blader with adjacent inflammatory changes c/f acalculous cholecystitis as well as possibility of duodenitis. PLAN: Gangrenous cholecystitis -WBC wnl, afebrile -POD#2 s/p robot assisted lap cholecystectomy -Cx: Klebsiella and E. faecalis, sensitivities in chart -tolerating advanced diet, pain controlled -CHIVO drain in place, minimal o/p -Discussed with Dr. Al who suggested discharge home with f/u with surgery clinic next week. C/w levofloxacin for 7 days. Aflutter with RVR, transient and likely 2/2 to infection above -s/p metop, dilt and dig , amio 150 with resolution. -telemetry no events overnight, currently NSR HTN: -c/w lisinopril DM: -F/u with PCP HLD: -continue simvastatin DISPOSITION: D/c home today with f/u with Dr. Al next week TIME SPENT ON DISCHARGE: 35 minutes. Vital Signs/I&Os Vital Signs Date Time Temp Pulse Resp B/P (MAP) Pulse Ox O2 Delivery O2 Flow Rate FiO2 11/23/20 12:00 96.2 84 16 143/83 (103) 97 Room Air 11/22/20 12:00 2.0 I&O- Last 24 Hours up to 6 AM 11/23/20 06:00 Intake Total 1800 ml Output Total 2970 ml Balance -1170 ml Laboratory Data Labs 24H Laboratory Tests 2 11/23/20 05:29: Nucleated Red Blood Cells % (auto) 0.0, Anion Gap 4L, Glomerular Filtration Rate > 60.0, Calcium Level 7.8L, Total Bilirubin 0.6#, Aspartate Amino Transf (AST/SGOT) 48H, Alanine Aminotransferase (ALT/SGPT) 115H, Alkaline Phosphatase 118H, Total Protein 5.7L, Albumin 2.2L, Albumin/Globulin Ratio 0.6 11/23/20 11:36: Bedside Glucose (Misc Panel) 225H CBC/BMP Laboratory Tests 11/23/20 05:29 FSBS Laboratory Tests Test 11/23/20 11:36 Range/Units Bedside Glucose (Misc Panel) 225 80-115 MG/DL Microbiology Microbiology 11/21/20 Blood Culture - Preliminary, Resulted No Growth after 48 hours. All Specime... 11/21/20 Blood Culture - Preliminary, Resulted No Growth after 48 hours. All Specime... 11/20/20 Anaerobic Culture - Final, Complete 11/20/20 Gram Stain - Final, Complete 11/20/20 Abscess Culture - Final, Complete Enterococcus Faecalis Klebsiella Pneumoniae 11/20/20 Anaerobic Culture, Received Pending 11/20/20 Gram Stain - Final, Complete 11/20/20 Body Fluid Culture - Final, Complete Klebsiella Pneumoniae 11/19/20 Gram Stain - Final, Complete 11/19/20 Sputum Culture - Final, Complete 11/18/20 Blood Culture - Final, Complete NO GROWTH AFTER 5 DAYS 11/18/20 Respiratory Virus Panel (PCR) (FILOMENA) - Final, Complete Discharge Medications Scheduled Aspirin (Aspirin EC) 81 Mg Tab, 81 MG PO DAILY, (Reported) Chele/D3/Mag11/Zinc/K 9 Handler/ Deputy/Taco/Bor (Caltrate 600+D Plus Tablet) 1 Tab Tab, 1 TAB PO DAILY, (Reported) Canagliflozin (Invokana) 100 Mg Tab, 100 MG PO DAILY, (Reported) Famotidine (Famotidine) 20 Mg Tablet, 20 MG PO BID, (Reported) Gabapentin (Gabapentin) 800 Mg Tablet, 800 MG PO BID, (Reported) Glipizide (Glipizide) 5 Mg Tablet, 5 MG PO DAILY, (Reported) Levofloxacin (Levofloxacin) 500 Mg Tablet, 500 MG PO DAILY@06 Lisinopril (Lisinopril) 10 Mg Tab, 10 MG PO DAILY, (Reported) Metformin HCl (Metformin HCl) 1,000 Mg Tablet, 1,000 MG PO BID, (Reported) Multivitamins (Thera M Plus Tablet) 1 Each Tablet, 1 TAB PO DAILY, (Reported) [place]-3 Fatty Acids/Fish Oil (Fish Oil 1,000 mg Capsule) 1 Each Capsule, 1,000 MG PO DAILY, (Reported) Simvastatin (Simvastatin) 20 Mg Tab, 20 MG PO DAILY, (Reported) Scheduled PRN Acetaminophen (Tylenol) 325 Mg Capsule, 650 MG PO Q6HP PRN for PAIN OR FEVER Tramadol HCl (Tramadol HCl) 50 Mg Tablet, 50 MG PO TIDP PRN for pain Allergies Coded Allergies: Contrast Media (Verified Allergy, Intermediate, POSSIBLE RASH (SEE COMMENT), 10/11/18) Pt states he received "medicine" in his IV for Cat scan & his face had "rash". Denies diff with topical betadine/iodine. morphine (Verified Allergy, Intermediate, HIVES, 11/16/20) Theresa Merrill MD Nov 23, 2020 21:56
[2020-11-24] MEDS ORDERED: LevoFLOXacin 500 MG TABLET PO SCH (06:00)
== END 2020-11-23 13:00 | disposition home or self-care (01) | DRG 418 ==
LOC: M ED 23:20 → M ED INP 11-18 07:27 → ENRESERV 11-18 08:37 → M MS5PR 11-18 09:51 → M PCU 11-21 04:35
PROVIDERS: ADMIT Internal Medicine; ATTEND Internal Medicine
PROC: 0FT44ZZ Resection of Gallbladder, Percutaneous Endoscopic Approach (ICD-10-PCS; principal; 2020-11-22)
PROC: 8E0W4CZ Robotic Assisted Procedure of Trunk Region, Percutaneous Endoscopic Approach (ICD-10-PCS; 2020-11-22)
DX: K81.0 Acute cholecystitis (principal); K82.A2 Perforation of gallbladder in cholecystitis; R18.8 Other ascites; I48.92 Unspecified atrial flutter; E11.9 Type 2 diabetes mellitus without complications; I10 Essential (primary) hypertension; K82.A1 Gangrene of gallbladder in cholecystitis; K21.9 Gastro-esophageal reflux disease without esophagitis; Z79.899 Other long term (current) drug therapy; Z79.82 Long term (current) use of aspirin; Z91.041 Radiographic dye allergy status; Z88.5 Allergy status to narcotic agent; Z98.41 Cataract extraction status, right eye; Z98.42 Cataract extraction status, left eye

== ENCOUNTER 2020-11-29 14:52 | Emergency (ER) | payer MEDICARE, MEDICAID ==
[~2020-11-29] VITALS: Ht 170.2 cm; Wt 70.0 kg
[~2020-11-29 14:52] MED LIST changes: +ACET325C5 PO; +FAMO20TA PO; +FISH1000 PO; +GABA800T4 PO; +GLIP5TAB8 PO; +LEVO500T3 PO; +TRAM50TA2 PO; +VITMTA PO
[2020-11-29 16:44] LABS: INR 0.98; PROTHROMBIN TIME 13.1 SECONDS (12.5-14.3)
[2020-11-29 16:45] LABS: PARTIAL THROMBOPLASTIN TIME 32.3 SECONDS (24.2-38.5)
[2020-11-29 16:51] LABS: ALBUMIN 2.5 GM/DL (3.2-5.2); ALT/SGPT 31 U/L (12-78); AMYLASE 53 U/L (25-115); BILIRUBIN,DIRECT 0.1 MG/DL (0.0-0.2); BILIRUBIN,TOTAL 0.2 MG/DL (0.2-1.0); BLOOD UREA NITROGEN 15 MG/DL (7-18); CALCIUM LEVEL 9.3 MG/DL (8.8-10.2); CARBON DIOXIDE LEVEL 30 MEQ/L (21-32); CHLORIDE LEVEL 102 MEQ/L (98-107); CREATININE FOR GFR 0.98 MG/DL (0.70-1.30); GLOMERULAR FILTRATION RATE > 60.0 (>49); GLUCOSE, FASTING 208 MG/DL (70-100); POTASSIUM SERUM 5.1 MEQ/L (3.5-5.1); SODIUM LEVEL 137 MEQ/L (136-145); TOTAL PROTEIN 7.1 GM/DL (6.4-8.2)
[2020-11-29 20:22] LABS: BASO % 0.3 % (0.0-1.0); EOS # 0.1 10^3/uL (0.0-0.5); EOS % 0.5 % (0.0-3.0); HEMATOCRIT 39.1 % (42.0-52.0); HEMOGLOBIN 12.7 g/dl (13.5-17.5); LYMPH # 1.6 10^3/uL (1.5-5.0); MEAN CORPUSCULAR HEMOGLOBIN 31.4 pg (27.0-33.0); MEAN CORPUSCULAR HGB CONC 32.5 g/dl (32.0-36.5); MEAN CORPUSCULAR VOLUME 96.5 fl (80.0-96.0); MONO # 0.8 10^3/uL (0.0-0.8); MONO % 7.5 % (2.0-8.0); NEUTROPHILS # 7.9 10^3/uL (1.5-8.5); NEUTROPHILS % 75.9 % (36.0-66.0); PLATELET COUNT, AUTOMATED 400 10^3/uL (150-450); RED BLOOD COUNT 4.05 10^6/uL (4.30-6.10); WHITE BLOOD COUNT 10.5 10^3/uL (4.0-10.0)
[2020-11-29 20:46] VITALS: BP 122/70
== END 2020-11-29 20:56 | disposition home or self-care (01) ==
LOC: M ED 14:52
DX: T81.89XA Other complications of procedures, not elsewhere classified, initial encounter (principal); Z87.19 Personal history of other diseases of the digestive system; E11.9 Type 2 diabetes mellitus without complications; I10 Essential (primary) hypertension; E78.5 Hyperlipidemia, unspecified; Z88.6 Allergy status to analgesic agent; Z91.041 Radiographic dye allergy status; Z79.899 Other long term (current) drug therapy

== ENCOUNTER → 2020-12-02 | Outpatient (CLI) | payer MEDICARE, MEDICAID ==
[~2020-12-02] MED LIST changes: +GASTROGRAFIN SOLUTION 30ML (Q9963) As Ordered ONE
--- NOTE | 2020-12-02 16:31 | REP ---
INDICATION: CHOLECYSTITIS W/ DRAINAGE, S/P MORAIMA, ABD PAIN COMPARISON: 11/18/2020. TECHNIQUE: CT Scan of the abdomen and pelvis was performed without intravenous contrast. Sagittal and coronal reconstruction images performed. FINDINGS: Lung bases: Calcified granuloma is seen in the lingula. There are fibro atelectatic changes in the right middle and lower lobes. Liver: Grossly unremarkable. Gallbladder: Status post recent cholecystectomy. Surgical drain is seen in the subhepatic region. There is a small amount of air and fluid in the gallbladder fossa. There is a small amount of fluid in Morison's pouch. Spleen: Calcified granulomas are seen in the spleen. Adrenals: Normal. Pancreas: Grossly unremarkable.. Kidneys: No hydronephrosis or nephrolithiasis. Ureters demonstrate no dilatation or calculus. Small and large bowel: Grossly unremarkable. Abdominal aorta: No aneurysm. Adenopathy: None. Appendix: Not inflamed. Osseous structures: Unremarkable. Pelvis: No mass. No bladder calculus seen. IMPRESSION: Small amount of air and fluid in the gallbladder fossa status post recent cholecystectomy. There is an adjacent surgical drain. There is a small amount of fluid in Morison's pouch. <Electronically signed by Rakesh Raygoza > 12/02/20 [id number]
== END ==
LOC: M RAD 15:46
PROVIDERS: ATTEND Surgery
DX: R10.9 Unspecified abdominal pain (principal); Z98.890 Other specified postprocedural states

== ENCOUNTER → 2021-01-13 | Outpatient (CLI) | payer MEDICARE, MEDICAID ==
[~2021-01-13] MED LIST changes: -GASTROGRAFIN SOLUTION 30ML (Q9963) As Ordered ONE
[2021-01-13 10:11] LABS: BASO % 0.6 % (0.0-1.0); EOS # 0.1 10^3/uL (0.0-0.5); HEMATOCRIT 43.2 % (42.0-52.0); HEMOGLOBIN 14.3 g/dl (13.5-17.5); LYMPH # 1.6 10^3/uL (1.5-5.0); LYMPH % 31.1 % (24.0-44.0); MEAN CORPUSCULAR HEMOGLOBIN 31.8 pg (27.0-33.0); MEAN CORPUSCULAR HGB CONC 33.1 g/dl (32.0-36.5); MEAN CORPUSCULAR VOLUME 96.2 fl (80.0-96.0); MONO # 0.4 10^3/uL (0.0-0.8); MONO % 7.8 % (2.0-8.0); NEUTROPHILS # 2.9 10^3/uL (1.5-8.5); NEUTROPHILS % 58.3 % (36.0-66.0); PLATELET COUNT, AUTOMATED 164 10^3/uL (150-450); RED BLOOD COUNT 4.49 10^6/uL (4.30-6.10)
[2021-01-13 10:31] LABS: HEMOGLOBIN A1c 6.8 %
[2021-01-13 10:43] LABS: CREATININE, URINE < 13.0 MG/DL; MALB URINE SIEMENS < 5.0 MG/L
[2021-01-13 11:05] LABS: BLOOD UREA NITROGEN 15 MG/DL (7-18); CALCIUM LEVEL 9.1 MG/DL (8.8-10.2); CARBON DIOXIDE LEVEL 30 MEQ/L (21-32); CHLORIDE LEVEL 106 MEQ/L (98-107); CREATININE FOR GFR 0.88 MG/DL (0.70-1.30); GLOMERULAR FILTRATION RATE > 60.0 (>49); GLUCOSE, FASTING 162 MG/DL (70-100); POTASSIUM SERUM 4.7 MEQ/L (3.5-5.1); SODIUM LEVEL 139 MEQ/L (136-145)
[2021-01-13 11:06] LABS: ALT/SGPT 37 U/L (12-78); BILIRUBIN,TOTAL 0.4 MG/DL (0.2-1.0); CHOLESTEROL LEVEL 127 MG/DL (<200); CHOLESTEROL RISK RATIO 2.645 (<5); HDL CHOLESTEROL 48 MG/DL (>40); LDL CHOLESTEROL 49 MG/DL (<100); NON-HDL-C 79 MG/DL; TOTAL PROTEIN 7.4 GM/DL (6.4-8.2); TRIGLYCERIDES LEVEL 149 MG/DL (<150)
== END ==
LOC: M LAB 09:20
PROVIDERS: ATTEND Physician Assistant
DX: E11.69 Type 2 diabetes mellitus with other specified complication (principal)

== ENCOUNTER → 2021-02-04 | Outpatient (CLI) | payer MEDICARE, MEDICAID ==
--- NOTE | 2021-02-04 12:41 | REP ---
INDICATION: LOW BACK PAIN. COMPARISON: None. FINDINGS: Five views of the lumbosacral spine show no acute fracture, dislocation or subluxation. The intervertebral disc spaces are symmetric and well maintained. There is no spondylolysis or spondylolisthesis. The pedicles are intact bilaterally and there is no destructive osseous lesion. There is minimal marginal osteophytosis at the L2-3 through L4-5 levels bilaterally. There is minimal anterior lipping at every level. IMPRESSION: Slight chronic changes as described above. <Electronically signed by Carlo Webb > 02/04/21 0925
== END ==
LOC: M LAB 10:48 → M RAD 10:48
PROVIDERS: ATTEND Physician Assistant
DX: M54.5 Low back pain (principal); M25.78 Osteophyte, vertebrae

== ENCOUNTER → 2021-08-02 | Outpatient (CLI) | payer MEDICARE, MEDICAID ==
[2021-08-02 11:33] LABS: HEMATOCRIT 45.8 % (42.0-52.0); HEMOGLOBIN 15.2 g/dl (13.5-17.5); MEAN CORPUSCULAR HEMOGLOBIN 31.3 pg (27.0-33.0); MEAN CORPUSCULAR HGB CONC 33.2 g/dl (32.0-36.5); MEAN CORPUSCULAR VOLUME 94.2 fl (80.0-96.0); PLATELET COUNT, AUTOMATED 141 10^3/uL (150-450); RED BLOOD COUNT 4.86 10^6/uL (4.30-6.10); WHITE BLOOD COUNT 4.3 10^3/uL (4.0-10.0)
[2021-08-02 12:19] LABS: ALBUMIN 4.2 GM/DL (3.2-5.2); ALT/SGPT 31 U/L (12-78); BILIRUBIN,TOTAL 0.5 MG/DL (0.2-1.0); BLOOD UREA NITROGEN 15 MG/DL (7-18); CALCIUM LEVEL 9.5 MG/DL (8.8-10.2); CARBON DIOXIDE LEVEL 29 MEQ/L (21-32); CHLORIDE LEVEL 103 MEQ/L (98-107); CHOLESTEROL LEVEL 104 MG/DL (<200); CHOLESTEROL RISK RATIO 2.418 (<5); CREATININE FOR GFR 0.95 MG/DL (0.70-1.30); GLOMERULAR FILTRATION RATE > 60.0 (>49); GLUCOSE, FASTING 142 MG/DL (70-100); HDL CHOLESTEROL 43 MG/DL (>40); LDL CHOLESTEROL 34 MG/DL (<100); NON-HDL-C 61 MG/DL; POTASSIUM SERUM 4.3 MEQ/L (3.5-5.1); SODIUM LEVEL 139 MEQ/L (136-145); TOTAL PROTEIN 7.3 GM/DL (6.4-8.2); TRIGLYCERIDES LEVEL 134 MG/DL (<150)
[2021-08-02 12:29] LABS: CREATININE, URINE 30.1 MG/DL; MALB URINE SIEMENS < 5.0 MG/L; MAU/CREAT RATIO 16.6 MCG/MG (0.0-30.0)
== END ==
LOC: M LAB 09:25
PROVIDERS: ATTEND Physician Assistant
DX: E11.9 Type 2 diabetes mellitus without complications (principal)

== ENCOUNTER → 2021-09-19 | Outpatient (RCR) | payer MEDICARE, MEDICAID ==
[~2021-09-19] MED LIST changes: -LEVO500T3 PO; +LEVO500T4 PO
== END ==
LOC: M PT 09-05 08:34
PROVIDERS: ATTEND Physician Assistant
DX: M25.511 Pain in right shoulder (principal)

== ENCOUNTER → 2021-12-23 | Outpatient (CLI) | payer MEDICARE, MEDICAID | LOC: M PLAIMG 15:13 | PROVIDERS: ATTEND Physician Assistant | DX: M25.78 Osteophyte, vertebrae (principal); M51.36 Other intervertebral disc degeneration, lumbar region; M51.26 Other intervertebral disc displacement, lumbar region; M48.061 Spinal stenosis, lumbar region without neurogenic claudication ==

== ENCOUNTER 2022-02-20 11:27 | Emergency (ER) | payer MEDICARE, MEDICAID ==
[~2022-02-20] VITALS: Ht 165.1 cm; Wt 74.6 kg
[2022-02-20 11:28] VITALS: BP 124/73
[2022-02-20] MEDS ORDERED: CELE1CAP7 (11:54)
== END 2022-02-20 12:25 | disposition left against medical advice (07) ==
LOC: M ED 11:27
DX: Z53.21 Procedure and treatment not carried out due to patient leaving prior to being seen by health care provider (principal)

== ENCOUNTER 2022-03-27 09:25 | Emergency (ER) | payer MEDICARE, MEDICAID ==
[~2022-03-27] VITALS: Ht 170.2 cm; Wt 70.5 kg
[~2022-03-27 09:25] MED LIST changes: +CELE1CAP7; +LEVO1TAB39 PO; -LEVO500T4 PO
[2022-03-27] MEDS ORDERED: NS 1,000 ML IV ONE (10:10)
[2022-03-27 10:45] LABS: VENOUS BASE EXCESS -2.6 (-2.0-2.0); VENOUS HCO3 22.5 MEQ/L (23.0-27.0); VENOUS O2 SATURATION 90.8 % (60.0-80.0); VENOUS PARTIAL PRESSURE O2 59.3 mmHg (30.0-50.0); VENOUS PH 7.368 UNITS (7.330-7.430); VENOUS STANDARD HCO3 22.2 MEQ/L; VENOUS TOTAL CO2 23.7 MEQ/L (24.0-28.0)
[2022-03-27 10:52] LABS: BASO % 0.4 % (0.0-1.0); EOS # 0.1 10^3/uL (0.0-0.5); EOS % 1.3 % (0.0-3.0); HEMATOCRIT 38.8 % (42.0-52.0); HEMOGLOBIN 12.6 g/dl (13.5-17.5); LYMPH # 1.3 10^3/uL (1.5-5.0); LYMPH % 15.9 % (24.0-44.0); MEAN CORPUSCULAR HEMOGLOBIN 30.1 pg (27.0-33.0); MEAN CORPUSCULAR HGB CONC 32.5 g/dl (32.0-36.5); MEAN CORPUSCULAR VOLUME 92.8 fl (80.0-96.0); MONO # 0.7 10^3/uL (0.0-0.8); MONO % 8.8 % (2.0-8.0); NEUTROPHILS # 5.8 10^3/uL (1.5-8.5); NEUTROPHILS % 73.3 % (36.0-66.0); PLATELET COUNT, AUTOMATED 259 10^3/uL (150-450); RED BLOOD COUNT 4.18 10^6/uL (4.30-6.10); WHITE BLOOD COUNT 7.8 10^3/uL (4.0-10.0)
[2022-03-27 11:11] LABS: OSMOLALITY SERUM 292 MOSM/KG (280-301)
[2022-03-27 11:29] LABS: ACETONE/KETONE 2.84 MG/DL (<2.81); ALBUMIN 3.1 GM/DL (3.2-5.2); ALT/SGPT 20 U/L (12-78); BILIRUBIN,DIRECT < 0.1 MG/DL (0.0-0.2); BILIRUBIN,TOTAL 0.2 MG/DL (0.2-1.0); LIPASE 124 U/L (73-393); TOTAL PROTEIN 6.6 GM/DL (6.4-8.2)
[2022-03-27 11:47] LABS: RSV AMPLIFICATION NEGATIVE (NEGATIVE)
[2022-03-27] MEDS ORDERED: GLIP10TA PO (13:11)
[2022-03-27 13:21] VITALS: BP 112/67
== END 2022-03-27 13:23 | disposition home or self-care (01) ==
LOC: M ED 09:25
DX: E11.65 Type 2 diabetes mellitus with hyperglycemia (principal); R53.83 Other fatigue; I10 Essential (primary) hypertension; J45.909 Unspecified asthma, uncomplicated; G40.89 Other seizures; Z87.442 Personal history of urinary calculi; Z79.84 Long term (current) use of oral hypoglycemic drugs; Z91.041 Radiographic dye allergy status; Z88.6 Allergy status to analgesic agent

== ENCOUNTER 2022-05-17 10:31 | Observation (INO) | payer MEDICARE, MEDICAID ==
[~2022-05-17 10:31] MED LIST changes: -CELE1CAP7; +CELE1CAP7 PO; +GLIP10TA PO
[2022-05-17 11:27] LABS: BASO % 0.2 % (0.0-1.0); EOS # 0.1 10^3/uL (0.0-0.5); HEMATOCRIT 35.9 % (42.0-52.0); HEMOGLOBIN 11.5 g/dl (13.5-17.5); LYMPH # 1.3 10^3/uL (1.5-5.0); LYMPH % 10.9 % (24.0-44.0); MEAN CORPUSCULAR HEMOGLOBIN 30.5 pg (27.0-33.0); MEAN CORPUSCULAR VOLUME 95.2 fl (80.0-96.0); MONO # 0.6 10^3/uL (0.0-0.8); MONO % 5.2 % (2.0-8.0); NEUTROPHILS % 82.3 % (36.0-66.0); PLATELET COUNT, AUTOMATED 484 10^3/uL (150-450); RED BLOOD COUNT 3.77 10^6/uL (4.30-6.10); WHITE BLOOD COUNT 12.2 10^3/uL (4.0-10.0)
[2022-05-17 11:37] LABS: INR 0.91; PROTHROMBIN TIME 12.7 SECONDS (12.7-14.5)
[2022-05-17 11:38] LABS: PARTIAL THROMBOPLASTIN TIME 28.8 SECONDS (25.9-37.0)
[2022-05-17 11:59] LABS: CK-MB VALUE MASS < 1.0 NG/ML (<3.6); CPK CREATINE PHOSPHOKINASE 30 U/L (39-308); MB/CK RELATIVE INDEX 3.33 (< OR =4)
[2022-05-17 12:11] LABS: ALBUMIN 3.1 GM/DL (3.2-5.2); ALT/SGPT 16 U/L (12-78); BILIRUBIN,DIRECT 0.2 MG/DL (0.0-0.2); BILIRUBIN,TOTAL 0.1 MG/DL (0.2-1.0); BLOOD UREA NITROGEN 13 MG/DL (7-18); CALCIUM LEVEL 9.4 MG/DL (8.8-10.2); CARBON DIOXIDE LEVEL 27 MEQ/L (21-32); CHLORIDE LEVEL 102 MEQ/L (98-107); CREATININE FOR GFR 0.78 MG/DL (0.70-1.30); GLOMERULAR FILTRATION RATE > 60.0 (>49); GLUCOSE, FASTING 287 MG/DL (70-100); LIPASE 109 U/L (73-393); NT-PRO BNP 65 PG/ML (<125); POTASSIUM SERUM 4.5 MEQ/L (3.5-5.1); SODIUM LEVEL 136 MEQ/L (136-145); THYROID STIMULATING HORMONE 0.773 uIU/ML (0.358-3.740); TOTAL PROTEIN 7.1 GM/DL (6.4-8.2)
[2022-05-17 13:25] LABS: CK-MB VALUE MASS < 1.0 NG/ML (<3.6); CPK CREATINE PHOSPHOKINASE 31 U/L (39-308); MB/CK RELATIVE INDEX 3.23 (< OR =4)
[2022-05-17] MEDS ORDERED: ASPI-226 PO (14:18)
[2022-05-17] MEDS ORDERED: ACET1TAB55 PO (14:18)
[2022-05-17] MEDS ORDERED: JARD1TAB PO (14:18)
[2022-05-17] MEDS ORDERED: GLIP10TA6 PO (14:18)
[2022-05-17] MEDS ORDERED: CYCL-707 PO (14:18)
[2022-05-17] MEDS ORDERED: LIDO1PAD TOP (14:18)
[2022-05-17] MEDS ORDERED: OMEG10002 PO (14:19)
[2022-05-17] MEDS ORDERED: HOME MED LIST COMPLETE! XX SCH (14:25)
[2022-05-17] MEDS ORDERED: GLUCOSE 4GM CHEW TABLET PO PRN (15:20)
[2022-05-17] MEDS ORDERED: DEXTROSE 50% 50 ML SYRINGE IV PRN (15:20)
[2022-05-17] MEDS ORDERED: GLUCAGON INJ 1MG VIAL SC PRN (15:20)
[2022-05-17 16:32] LABS: RSV AMPLIFICATION NEGATIVE (NEGATIVE)
[2022-05-17] MEDS: INSULIN LISPRO (NovoLOG) PER UNIT SC SCH ×2 (17:55→20:30)
[2022-05-17 18:08] LABS: HEMOGLOBIN A1c 9.7 %
[2022-05-17] MEDS ORDERED: PROHANCE 279.3MG/ML 15ML VIAL As Ordered ONE (18:53)
[2022-05-17 20:00] VITALS: BP 136/79
[2022-05-17] MEDS ORDERED: PERCOCET 5MG/325MG TAB PO ONE (20:15)
[2022-05-17] MEDS: LEVEMIR (INSULIN DETEMIR) 1 UNITS/0.01ML SC SCH (20:25)
[2022-05-17] MEDS: ENOXAPARIN 40MG/0.4ML SYRINGE (J1650 PER 10MG) SC SCH (20:25)
[2022-05-17] MEDS: GABAPENTIN 400MG CAP PO SCH (20:26)
[2022-05-17] MEDS: FAMOTIDINE 20 MG TAB PO SCH (20:26)
[2022-05-18] MEDS ORDERED: PERCOCET 5MG/325MG TAB PO PRN (02:10)
[2022-05-18] MEDS: PERCOCET 5MG/325MG TAB PO PRN ×4 (02:21→22:09)
[2022-05-18 06:00] VITALS: BP 134/79
[2022-05-18 06:57] LABS: HEMOGLOBIN 11.2 g/dl (13.5-17.5); MEAN CORPUSCULAR HEMOGLOBIN 30.7 pg (27.0-33.0); MEAN CORPUSCULAR VOLUME 95.9 fl (80.0-96.0); PLATELET COUNT, AUTOMATED 466 10^3/uL (150-450); RED BLOOD COUNT 3.65 10^6/uL (4.30-6.10); WHITE BLOOD COUNT 10.3 10^3/uL (4.0-10.0)
[2022-05-18 07:22] LABS: BLOOD UREA NITROGEN 11 MG/DL (7-18); CALCIUM LEVEL 9.2 MG/DL (8.8-10.2); CARBON DIOXIDE LEVEL 30 MEQ/L (21-32); CHLORIDE LEVEL 101 MEQ/L (98-107); CREATININE FOR GFR 0.79 MG/DL (0.70-1.30); GLOMERULAR FILTRATION RATE > 60.0 (>49); GLUCOSE, FASTING 280 MG/DL (70-100); POTASSIUM SERUM 5.3 MEQ/L (3.5-5.1); SODIUM LEVEL 134 MEQ/L (136-145)
[2022-05-18] MEDS: ASPIRIN 81 MG CHEW TABLET PO SCH (08:31)
[2022-05-18] MEDS: SIMVASTATIN 20 MG TAB PO SCH (08:31)
[2022-05-18] MEDS: GABAPENTIN 400MG CAP PO SCH ×2 (08:31→20:55)
[2022-05-18] MEDS: FAMOTIDINE 20 MG TAB PO SCH ×2 (08:31→20:55)
[2022-05-18] MEDS: INSULIN LISPRO (NovoLOG) PER UNIT SC SCH ×4 (08:32→20:57)
[2022-05-18] MEDS: LEVEMIR (INSULIN DETEMIR) 1 UNITS/0.01ML SC SCH ×2 (08:32→20:55)
[2022-05-18 11:57] VITALS: BP 127/80
[2022-05-18 14:00] VITALS: BP 127/79
[2022-05-18] MEDS ORDERED: SOD POLYSTYRENE SULFONATE SUSP 15GM 60ML UD PO ONE (17:50)
[2022-05-18] MEDS: ENOXAPARIN 40MG/0.4ML SYRINGE (J1650 PER 10MG) SC SCH (20:54)
[2022-05-18 22:00] VITALS: BP 127/88
[2022-05-19] MEDS ORDERED: HYDROMORPHONE HCL 0.5 MG/ 0.5 ML SYRINGE (J1170 PER 1) IV ONE (00:45)
[2022-05-19] MEDS ORDERED: ANALGESIC BALM CRM 3OZ TOP PRN (00:45)
[2022-05-19 06:00] VITALS: BP 126/87
[2022-05-19] MEDS: PERCOCET 5MG/325MG TAB PO PRN ×2 (06:26→11:44)
[2022-05-19 07:31] LABS: HEMATOCRIT 39.9 % (42.0-52.0); HEMOGLOBIN 12.6 g/dl (13.5-17.5); MEAN CORPUSCULAR HEMOGLOBIN 30.1 pg (27.0-33.0); MEAN CORPUSCULAR HGB CONC 31.6 g/dl (32.0-36.5); MEAN CORPUSCULAR VOLUME 95.2 fl (80.0-96.0); PLATELET COUNT, AUTOMATED 492 10^3/uL (150-450); RED BLOOD COUNT 4.19 10^6/uL (4.30-6.10); WHITE BLOOD COUNT 13.3 10^3/uL (4.0-10.0)
[2022-05-19 07:54] LABS: BLOOD UREA NITROGEN 14 MG/DL (7-18); CALCIUM LEVEL 9.5 MG/DL (8.8-10.2); CARBON DIOXIDE LEVEL 28 MEQ/L (21-32); CHLORIDE LEVEL 101 MEQ/L (98-107); CREATININE FOR GFR 0.67 MG/DL (0.70-1.30); GLOMERULAR FILTRATION RATE > 60.0 (>49); GLUCOSE, FASTING 135 MG/DL (70-100); POTASSIUM SERUM 4.8 MEQ/L (3.5-5.1); SODIUM LEVEL 134 MEQ/L (136-145)
[2022-05-19 08:30] VITALS: BP 128/88
[2022-05-19] MEDS: GABAPENTIN 400MG CAP PO SCH (08:31)
[2022-05-19] MEDS: INSULIN LISPRO (NovoLOG) PER UNIT SC SCH ×2 (08:31→11:45)
[2022-05-19] MEDS: ASPIRIN 81 MG CHEW TABLET PO SCH (08:31)
[2022-05-19] MEDS: FAMOTIDINE 20 MG TAB PO SCH (08:31)
[2022-05-19] MEDS: SIMVASTATIN 20 MG TAB PO SCH (08:31)
[2022-05-19] MEDS: LEVEMIR (INSULIN DETEMIR) 1 UNITS/0.01ML SC SCH (08:31)
[2022-05-19 09:39] LABS: BASO # 0.1 10^3/uL (0.0-0.2); BASO % 0.4 % (0.0-1.0); EOS # 0.1 10^3/uL (0.0-0.5); EOS % 0.7 % (0.0-3.0); LYMPH # 1.9 10^3/uL (1.5-5.0); LYMPH % 14.5 % (24.0-44.0); MONO % 7.7 % (2.0-8.0); NEUTROPHILS # 10.2 10^3/uL (1.5-8.5); NEUTROPHILS % 76.3 % (36.0-66.0)
[2022-05-19] MEDS ORDERED: LIDOCAINE 1% MDV 20ML VIAL As Ordered ONE (12:05)
[2022-05-19] MEDS ORDERED: LEVE1INJ5 SC ×2 (12:47→12:50)
[2022-05-19] MEDS ORDERED: PERCOCET PO ×2 (12:47→15:17)
[2022-05-19] MEDS ORDERED: AMLO1TAB25 PO (12:47)
[2022-05-19 14:00] VITALS: BP 125/81
[2022-05-19] MEDS ORDERED: [UNRECOGNIZED DRUG - CODE] PO (14:19)
[2022-05-19] MEDS ORDERED: LANC1COM MC (14:44)
[2022-05-19] MEDS ORDERED: BLOO-76 MC (14:44)
[2022-05-19] MEDS ORDERED: GLOB31MI SC (14:53)
[2022-05-19] MEDS ORDERED: OXYC-778 PO (15:05)
[2022-05-31] MEDS ORDERED: OXYC1TAB23 PO (11:41)
== END 2022-05-19 17:10 | disposition home or self-care (01) ==
LOC: EDBD 10:31 → M ED 10:31 → M ED INP 15:20 → ENRESERV 16:45 → M MSPAV 20:02
PROVIDERS: ADMIT Internal Medicine; ATTEND Internal Medicine
DX: I95.1 Orthostatic hypotension (principal); C25.9 Malignant neoplasm of pancreas, unspecified; C78.7 Secondary malignant neoplasm of liver and intrahepatic bile duct; E78.5 Hyperlipidemia, unspecified; E11.3559 Type 2 diabetes mellitus with stable proliferative diabetic retinopathy, unspecified eye; D72.829 Elevated white blood cell count, unspecified; D75.839 Thrombocytosis, unspecified; G89.29 Other chronic pain; Z79.82 Long term (current) use of aspirin; Z79.899 Other long term (current) drug therapy; Z79.84 Long term (current) use of oral hypoglycemic drugs; I10 Essential (primary) hypertension; K21.9 Gastro-esophageal reflux disease without esophagitis; Z88.5 Allergy status to narcotic agent; Z91.041 Radiographic dye allergy status; Z87.891 Personal history of nicotine dependence; G31.9 Degenerative disease of nervous system, unspecified; R29.818 Other symptoms and signs involving the nervous system
CPT/HCPCS: 10009; 36415; 70450; 70544; 70547; 70551; 71045; 71250; 74183; 76942; 80048; 80076; 82550; 82553; 83036; 83690; 83880; 84443; 84484; 85025; 85027; 85610; 85730; 86301; 87040; 87631; 88305; 88341; 88342; 93005; 93041; 94760; 96372; 96374; 97116; 97161; 97164; 97165; 99285; A9576; G0378; J1170; J1650; J1815

== ENCOUNTER 2022-06-20 11:03 | Inpatient (IN) | payer MEDICARE, MEDICAID ==
[~2022-06-20] VITALS: Ht 167.6 cm; Wt 62.5 kg
[~2022-06-20 11:03] MED LIST changes: +ACET1TAB55 PO; +AMLO1TAB25 PO; +ASPI-226 PO; +BLOO-76 MC; +CYCL-707 PO; +GLIP10TA6 PO; +GLOB31MI SC; +JARD1TAB PO; +LANC1COM MC; +LEVE1INJ5 SC; +LIDO1PAD TOP; +OMEG10002 PO; +OXYC-778 PO; +OXYC1TAB23 PO; +PERCOCET PO; +[UNRECOGNIZED DRUG - CODE] PO
[2022-06-20] MEDS ORDERED: GLIP10TA6 (11:47)
[2022-06-20] MEDS ORDERED: LISI10TA22 PO (11:47)
[2022-06-20] MEDS ORDERED: ONDANSETRON 4MG 2ML VIAL IV ONE (13:15)
[2022-06-20] MEDS ORDERED: NS 1,000 ML IV ONE (13:15)
[2022-06-20] MEDS: HYDROMORPHONE HCL 0.5 MG/ 0.5 ML SYRINGE (J1170 PER 1) IV PRN ×2 (13:29→15:16)
[2022-06-20 13:33] LABS: BASO # 0.1 10^3/uL (0.0-0.2); BASO % 0.4 % (0.0-1.0); EOS # 0.1 10^3/uL (0.0-0.5); EOS % 0.8 % (0.0-3.0); HEMATOCRIT 34.8 % (42.0-52.0); LYMPH # 1.4 10^3/uL (1.5-5.0); LYMPH % 8.5 % (24.0-44.0); MEAN CORPUSCULAR HEMOGLOBIN 30.3 pg (27.0-33.0); MEAN CORPUSCULAR HGB CONC 31.6 g/dl (32.0-36.5); MEAN CORPUSCULAR VOLUME 95.9 fl (80.0-96.0); MONO # 1.4 10^3/uL (0.0-0.8); MONO % 8.4 % (2.0-8.0); NEUTROPHILS # 13.2 10^3/uL (1.5-8.5); NEUTROPHILS % 81.5 % (36.0-66.0); PLATELET COUNT, AUTOMATED 545 10^3/uL (150-450); RED BLOOD COUNT 3.63 10^6/uL (4.30-6.10); WHITE BLOOD COUNT 16.2 10^3/uL (4.0-10.0)
[2022-06-20 14:00] LABS: BLOOD UREA NITROGEN 18 MG/DL (7-18); CALCIUM LEVEL 9.5 MG/DL (8.8-10.2); CARBON DIOXIDE LEVEL 16 MEQ/L (21-32); CHLORIDE LEVEL 100 MEQ/L (98-107); CREATININE FOR GFR 0.58 MG/DL (0.70-1.30); GLOMERULAR FILTRATION RATE > 60.0 (>49); GLUCOSE, FASTING 190 MG/DL (70-100); POTASSIUM SERUM 4.8 MEQ/L (3.5-5.1); SODIUM LEVEL 133 MEQ/L (136-145)
[2022-06-20] MEDS ORDERED: diphenhydrAMINE 50MG/ML VIAL (J1200) IV ONE (15:35)
[2022-06-20] MEDS ORDERED: methylPREDNISolone 125MG 2ML VIAL IV ONE (15:35)
[2022-06-20] MEDS ORDERED: ISOVUE-370 76% 100ML VIAL As Ordered ONE (15:39)
[2022-06-20] MEDS ORDERED: HYDROMORPHONE HCL 0.5 MG/ 0.5 ML SYRINGE (J1170 PER 1) IV ONE ×2 (16:30→19:20)
[2022-06-20] MEDS ORDERED: cefTRIAXone SOD 1 GM in D5W MINI-BAG PLUS 50 ML IV ONE (18:00)
[2022-06-20] MEDS ORDERED: LEVE1INJ5 SC (18:30)
[2022-06-20] MEDS ORDERED: AMLO1TAB25 PO (18:30)
[2022-06-20] MEDS ORDERED: HOME MED LIST COMPLETE! XX SCH ×2 (18:30→19:55)
[2022-06-20] MEDS ORDERED: AZITHROMYCIN 250MG TABLET PO ONE (19:00)
[2022-06-20 19:25] LABS: ACETONE/KETONE > 46.00 MG/DL (<2.81)
[2022-06-20] MEDS ORDERED: GLUCOSE 4GM CHEW TABLET PO PRN (19:30)
[2022-06-20] MEDS ORDERED: HYDROMORPHONE HCL 0.5 MG/ 0.5 ML SYRINGE (J1170 PER 1) IV PRN (19:30)
[2022-06-20] MEDS ORDERED: GLUCAGON INJ 1MG VIAL SC PRN (19:30)
[2022-06-20] MEDS ORDERED: SENOKOT S TAB PO PRN (19:30)
[2022-06-20] MEDS ORDERED: oxyCODONE 5MG TAB PO PRN (19:30)
[2022-06-20] MEDS ORDERED: DEXTROSE 50% 50 ML SYRINGE IV PRN (19:30)
[2022-06-20] MEDS ORDERED: ONDANSETRON 4MG 2ML VIAL IV PRN (19:30)
[2022-06-20 20:53] LABS: ALT/SGPT 66 U/L (12-78); BILIRUBIN,DIRECT 0.1 MG/DL (0.0-0.2); BILIRUBIN,TOTAL 0.5 MG/DL (0.2-1.0); TOTAL PROTEIN 7.2 GM/DL (6.4-8.2)
[2022-06-20] MEDS ORDERED: LEVEMIR (INSULIN DETEMIR) 1 UNITS/0.01ML SC SCH (21:00)
[2022-06-20] MEDS: NS 1,000 ML IV SCH (23:05)
[2022-06-20] MEDS: FAMOTIDINE 20 MG TAB PO SCH (23:07)
[2022-06-20 23:30] VITALS: BP 151/94
[2022-06-20] MEDS: INSULIN LISPRO (NovoLOG) PER UNIT SC SCH (23:58)
[2022-06-20] MEDS: GABAPENTIN 400MG CAP PO SCH (23:58)
[2022-06-20] MEDS: oxyCODONE 20 MG CR TAB PO SCH (23:59)
[2022-06-21] MEDS: oxyCODONE 5MG TAB PO PRN ×3 (04:18→15:43)
[2022-06-21 05:30] VITALS: BP 145/89
[2022-06-21 06:24] LABS: BASO % 0.3 % (0.0-1.0); EOS % 0.1 % (0.0-3.0); HEMATOCRIT 33.1 % (42.0-52.0); HEMOGLOBIN 10.6 g/dl (13.5-17.5); LYMPH # 1.4 10^3/uL (1.5-5.0); LYMPH % 9.3 % (24.0-44.0); MEAN CORPUSCULAR HEMOGLOBIN 30.3 pg (27.0-33.0); MEAN CORPUSCULAR VOLUME 94.6 fl (80.0-96.0); MONO # 1.4 10^3/uL (0.0-0.8); MONO % 9.2 % (2.0-8.0); NEUTROPHILS # 11.9 10^3/uL (1.5-8.5); NEUTROPHILS % 80.6 % (36.0-66.0); PLATELET COUNT, AUTOMATED 531 10^3/uL (150-450); WHITE BLOOD COUNT 14.8 10^3/uL (4.0-10.0)
[2022-06-21 07:01] LABS: BLOOD UREA NITROGEN 19 MG/DL (7-18); CALCIUM LEVEL 8.9 MG/DL (8.8-10.2); CARBON DIOXIDE LEVEL 18 MEQ/L (21-32); CHLORIDE LEVEL 100 MEQ/L (98-107); CREATININE FOR GFR 0.71 MG/DL (0.70-1.30); GLOMERULAR FILTRATION RATE > 60.0 (>49); GLUCOSE, FASTING 257 MG/DL (70-100); SODIUM LEVEL 132 MEQ/L (136-145)
[2022-06-21] MEDS ORDERED: NS 1,000 ML IV ONE (07:45)
[2022-06-21] MEDS: LEVEMIR (INSULIN DETEMIR) 1 UNITS/0.01ML SC SCH ×2 (08:50→20:11)
[2022-06-21] MEDS: ASPIRIN 81MG ENTERIC TABLET PO SCH (08:51)
[2022-06-21] MEDS: FAMOTIDINE 20 MG TAB PO SCH ×2 (08:51→20:12)
[2022-06-21] MEDS: GABAPENTIN 400MG CAP PO SCH ×2 (08:51→20:12)
[2022-06-21] MEDS: INSULIN LISPRO (NovoLOG) PER UNIT SC SCH ×4 (08:51→20:10)
[2022-06-21] MEDS: oxyCODONE 20 MG CR TAB PO SCH ×2 (08:51→20:12)
[2022-06-21] MEDS ORDERED: LEVEMIR (INSULIN DETEMIR) 1 UNITS/0.01ML SC SCH (09:00)
[2022-06-21] MEDS: NS 1,000 ML IV SCH ×2 (11:17→20:18)
[2022-06-21 12:29] LABS: HEMOGLOBIN A1c 9.7 %
[2022-06-21 14:00] VITALS: BP 143/88
[2022-06-21] MEDS ORDERED: cefTRIAXone SOD 1 GM in D5W MINI-BAG PLUS 50 ML IV SCH (18:00)
[2022-06-21] MEDS ORDERED: AZITHROMYCIN 250MG TABLET PO SCH (21:00)
[2022-06-21 21:25] VITALS: BP 145/89
[2022-06-22] MEDS: oxyCODONE 5MG TAB PO PRN ×3 (00:07→14:13)
[2022-06-22] MEDS: NS 1,000 ML IV SCH (05:09)
[2022-06-22 06:00] VITALS: BP 143/92
[2022-06-22 07:39] LABS: BASO # 0.1 10^3/uL (0.0-0.2); BASO % 0.4 % (0.0-1.0); EOS # 0.2 10^3/uL (0.0-0.5); EOS % 1.2 % (0.0-3.0); HEMATOCRIT 32.2 % (42.0-52.0); HEMOGLOBIN 10.3 g/dl (13.5-17.5); LYMPH # 1.2 10^3/uL (1.5-5.0); LYMPH % 8.6 % (24.0-44.0); MEAN CORPUSCULAR HEMOGLOBIN 30.1 pg (27.0-33.0); MEAN CORPUSCULAR VOLUME 94.2 fl (80.0-96.0); MONO % 11.3 % (2.0-8.0); NEUTROPHILS # 10.9 10^3/uL (1.5-8.5); NEUTROPHILS % 78.1 % (36.0-66.0); PLATELET COUNT, AUTOMATED 448 10^3/uL (150-450); RED BLOOD COUNT 3.42 10^6/uL (4.30-6.10)
[2022-06-22 08:09] LABS: MONO # 1.6 10^3/uL (0.0-0.8)
[2022-06-22 08:22] LABS: BLOOD UREA NITROGEN 8 MG/DL (7-18); CALCIUM LEVEL 8.9 MG/DL (8.8-10.2); CARBON DIOXIDE LEVEL 25 MEQ/L (21-32); CHLORIDE LEVEL 101 MEQ/L (98-107); CREATININE FOR GFR 0.44 MG/DL (0.70-1.30); GLOMERULAR FILTRATION RATE > 60.0 (>49); GLUCOSE, FASTING 151 MG/DL (70-100); POTASSIUM SERUM 3.8 MEQ/L (3.5-5.1); SODIUM LEVEL 134 MEQ/L (136-145)
[2022-06-22] MEDS: INSULIN LISPRO (NovoLOG) PER UNIT SC SCH ×4 (08:33→20:47)
[2022-06-22] MEDS: ASPIRIN 81MG ENTERIC TABLET PO SCH (08:34)
[2022-06-22] MEDS: LEVEMIR (INSULIN DETEMIR) 1 UNITS/0.01ML SC SCH ×2 (08:34→20:46)
[2022-06-22] MEDS: GABAPENTIN 400MG CAP PO SCH ×2 (08:34→20:46)
[2022-06-22] MEDS: FAMOTIDINE 20 MG TAB PO SCH ×2 (08:34→20:46)
[2022-06-22] MEDS: oxyCODONE 20 MG CR TAB PO SCH ×2 (08:35→20:46)
[2022-06-22 14:43] VITALS: BP 125/75
[2022-06-22 20:32] VITALS: BP 139/79
[2022-06-23] MEDS: oxyCODONE 5MG TAB PO PRN ×2 (01:47→06:19)
[2022-06-23 05:40] VITALS: BP 138/80
[2022-06-23] MEDS: ASPIRIN 81MG ENTERIC TABLET PO SCH (08:12)
[2022-06-23] MEDS: GABAPENTIN 400MG CAP PO SCH (08:12)
[2022-06-23] MEDS: oxyCODONE 20 MG CR TAB PO SCH (08:12)
[2022-06-23] MEDS: FAMOTIDINE 20 MG TAB PO SCH (08:12)
[2022-06-23] MEDS: LEVEMIR (INSULIN DETEMIR) 1 UNITS/0.01ML SC SCH (08:12)
[2022-06-23] MEDS: INSULIN LISPRO (NovoLOG) PER UNIT SC SCH (08:13)
[2022-06-23] MEDS ORDERED: HYOS125TA PO (09:10)
[2022-06-23] MEDS ORDERED: OXYC-517 PO (09:10)
[2022-06-23] MEDS ORDERED: OXYC20TA40 PO (09:10)
[2022-06-23] MEDS ORDERED: LEVE1INJ5 SC (09:10)
[2022-06-23] MEDS ORDERED: OXYC1TAB23 PO (09:10)
[2022-06-23] MEDS ORDERED: ATIV1TAB10 PO (09:10)
== END 2022-06-23 12:06 | disposition home or self-care (01) | DRG 947 ==
LOC: EDBD 11:03 → M ED 11:03 → M ED INP 19:27 → M MSPAV 23:26
PROVIDERS: ADMIT Internal Medicine Nephrology; ATTEND Internal Medicine Nephrology
DX: G89.3 Neoplasm related pain (acute) (chronic) (principal); E11.10 Type 2 diabetes mellitus with ketoacidosis without coma; J98.11 Atelectasis; C25.9 Malignant neoplasm of pancreas, unspecified; C78.89 Secondary malignant neoplasm of other digestive organs; C78.7 Secondary malignant neoplasm of liver and intrahepatic bile duct; C79.02 Secondary malignant neoplasm of left kidney and renal pelvis; K21.9 Gastro-esophageal reflux disease without esophagitis; E78.5 Hyperlipidemia, unspecified; Z79.4 Long term (current) use of insulin; Z79.899 Other long term (current) drug therapy; Z91.041 Radiographic dye allergy status; Z88.5 Allergy status to narcotic agent; Z79.82 Long term (current) use of aspirin; E11.319 Type 2 diabetes mellitus with unspecified diabetic retinopathy without macular edema; F32.A Depression, unspecified; F41.9 Anxiety disorder, unspecified; F17.200 Nicotine dependence, unspecified, uncomplicated